=== PATIENT | male | born 1940 | race Caucasian/White ===

== ENCOUNTER 2017-12-16 06:28 | Day surgery (SDC) | payer MEDICARE ==
[~2017-12-16] VITALS: Ht 188 cm; Wt 106.4 kg
[~2017-12-16 06:28] MED LIST: BENA20 PO; FERR325T PO; FURO10S PO; GABA600T PO; IPRA17I INH; LEVO125T3 PO; METO50TA PO; PACE100T2 PO; PAXI20TA PO; POTA75TA2 PO; PRAV40TA2 PO; PRIL40CA PO; TERA5CAP3 PO; WARF-20 PO
[2017-12-16] MEDS ORDERED: AMIO0.1T PO (06:44)
[2017-12-16] MEDS ORDERED: ATOR40TA16 PO (06:45)
[2017-12-16] MEDS ORDERED: APIX5TAB PO (06:46)
[2017-12-16] MEDS ORDERED: GABA300C5 PO (06:48)
[2017-12-16] MEDS ORDERED: FINA5TAB2 PO (06:48)
[2017-12-16] MEDS ORDERED: FURO1TAB60 PO (06:49)
[2017-12-16] MEDS ORDERED: LEVO100T5 PO (06:49)
[2017-12-16] MEDS ORDERED: LOSA50TA PO (06:50)
[2017-12-16] MEDS ORDERED: OMEP40CA2 PO (06:51)
[2017-12-16] MEDS ORDERED: PARO20TA2 PO (06:52)
[2017-12-16] MEDS ORDERED: POTA-163 PO (06:52)
[2017-12-16 06:56] VITALS: BP 149/83; PULSE 70; RESP 18; TEMP 97.9; O2SAT 93
[2017-12-16] MEDS ORDERED: SODIUM CHLOR 0.9% 1000 ML INJ 1,000 ML IV SCH (07:15)
[2017-12-16] MEDS ORDERED: LIDOCAINE 1%/EPINEPHrine 1:100,000 SOLN 20 ML VIAL ONE (07:27)
[2017-12-16 07:30] LABS: AUTOMATED NEUTROPHIL # 9.9 TH/MM3 (1.8-7.7); BASOPHIL # 0.1 TH/MM3 (0-0.2); EOSINOPHIL # 0.8 TH/MM3 (0-0.4); EOSINOPHIL % 5.8 % (0.0-4.0); HEMOGLOBIN 14.9 GM/DL (13.0-17.0); LYMPH % 7.6 % (9.0-44.0); MEAN CELL VOLUME 87.3 FL (80.0-100.0); MEAN CORPUSCULAR HEMOGLOBIN 30.9 PG (27.0-34.0); MEAN CORPUSCULAR HGB CONC 35.4 % (32.0-36.0); MEAN PLATELET VOLUME 7.6 FL (7.0-11.0); MONO % 10.3 % (0.0-8.0); MONOCYTE # 1.4 TH/MM3 (0-0.9); NEUT % 75.3 % (16.0-70.0); PLATELET COUNT 364 TH/MM3 (150-450); RED BLOOD COUNT 4.81 MIL/MM3 (4.50-5.90); RED CELL DISTRIBUTION WIDTH 13.5 % (11.6-17.2); WHITE BLOOD COUNT 13.1 TH/MM3 (4.0-11.0)
[2017-12-16] MEDS ORDERED: MIDAZOLAM HCL 2 MG/2 ML VIAL ONE (08:08)
[2017-12-16 08:15] LABS: INTERNATIONAL NORMALIZED RATIO 1.2 RATIO; PROTHROMBIN TIME - PATIENT 11.8 SEC (9.8-11.6)
[2017-12-16 09:23] VITALS: BP 142/74; PULSE 100; RESP 19; TEMP 97.9; O2SAT 96
[2017-12-16 09:53] VITALS: BP 136/69; PULSE 89; RESP 17; O2SAT 93
[2017-12-16 10:23] VITALS: BP 146/70; PULSE 104; RESP 18; O2SAT 95
[2017-12-16 10:53] VITALS: BP 130/76; PULSE 88; RESP 19; O2SAT 92
--- NOTE | 2017-12-16 11:06 | RADRPT ---
EXAM DATE: 12/16/2017 9:42 AM EDT AGE/SEX: 77 years / Male INDICATIONS: Left adrenal mass. CLINICAL DATA: This is the patient's initial encounter. Patient reports that signs and symptoms have been present for 1 day and indicates a pain score of 0/10. MEDICAL/SURGICAL HISTORY: Carcinoma, colon. Hypertension. Congestive heart failure. Cholecyst ectomy. COMPARISON: No prior exams available for comparison. BIOPSY SITE: Left adrenal DEVICE(S): 18 gauge BARD biopsy needle PROCEDURE: CT guided Left adrenal biopsy Prior to the procedure informed consent was obtained. Any appropriate prior imaging studies were rev iewed. Using automated exposure control and adjustment of the mA and/or kV according to patient size, radiat ion dose was kept as low as reasonably achievable to obtain optimal diagnostic quality images. DICOM format image data is available electronically for review and comparison. The site was prepped in a sterile fashion. Full sterile technique was used, including cap, mask, angélica rile gloves and gown and a large sterile sheet. Hand hygiene and 2% chlorhexidine and/or betadine/al cohol prep was utilized per protocol for cutaneous antisepsis. The skin and subcutaneous tissues wer e infiltrated with local anesthetic solution. With CT guidance the previously identified target was localized. Biopsy was performed using the presc ribed needle as above. Adequate hemostasis was obtained with compression at the puncture site. Follow-up CT scan reveals minimal hemorrhage. The patient tolerated the procedure well and there were no complications. The patient was returned to the Radiology Outpatient Unit in stable condition. FINDINGS: Successful CT-guided 18-gauge core biopsy of left adrenal mass was performed. CONCLUSION: 1. Successful CT-guided 18-gauge core biopsy of left adrenal mass. Electronically signed by: Harshad Springer MD 12/16/2017 11:04 AM EDT
== END 2017-12-16 11:30 | disposition home or self-care (01) ==
LOC: HRAD 06:28 → HRIP 06:29 → HRAD 11:30
PROVIDERS: ATTEND Internal Medicine Hematology
DX: C74.92 Malignant neoplasm of unspecified part of left adrenal gland (principal); C18.9 Malignant neoplasm of colon, unspecified; I11.0 Hypertensive heart disease with heart failure; I50.9 Heart failure, unspecified
CPT/HCPCS: 60699; 77012; 85025; 85610; 85730; 88305; 88341; 88342; 99152; 99153; J2250; J3010; J7030

== ENCOUNTER 2017-12-31 12:55 | Inpatient (IN) | payer MEDICARE ==
[~2017-12-31] VITALS: Ht 177.8 cm; Wt 97.5 kg
[~2017-12-31 12:55] MED LIST changes: +AMIO0.1T PO; +APIX5TAB PO; +ATOR40TA16 PO; -BENA20 PO; -FERR325T PO; +FINA5TAB2 PO; -FURO10S PO; +FURO1TAB60 PO; +GABA300C5 PO; -GABA600T PO; -IPRA17I INH; +LEVO100T5 PO; -LEVO125T3 PO; +LOSA50TA PO; -METO50TA PO; +OMEP40CA2 PO; -PACE100T2 PO; +PARO20TA2 PO; -PAXI20TA PO; +POTA-163 PO; -POTA75TA2 PO; -PRAV40TA2 PO; -PRIL40CA PO; -TERA5CAP3 PO; -WARF-20 PO
[2017-12-31] MEDS ORDERED: IOHEXOL 350 MG/ML 10 ML VIAL (for RAD DIAG) IVCONTRAST ONE (12:56)
[2017-12-31 13:10] VITALS: BP 129/90; PULSE 106; RESP 18; RESP 20; TEMP 98.7; O2SAT 97
--- NOTE | 2017-12-31 13:53 | PD ---
HPI Chief Complaint: Respiratory Symptoms Time Seen by Provider: 13:52 Travel History International Travel<30 days: No Contact w/Intl Traveler<30days: No Traveled to known affect area: No PFSH Past Medical History Hx Anticoagulant Therapy: Yes Anemia: Yes Arthritis: Yes Atrial Fibrillation: Yes Cancer: Yes (melanoma) Cardiovascular Problems: Yes High Cholesterol: Yes Chest Pain: No Congestive Heart Failure: Yes COPD: Yes Cerebrovascular Accident: No Coronary Artery Disease: Yes Diabetes: No Deep Vein Thrombosis: No Gastrointestinal Disorders: No GERD: Yes Genitourinary: No Hiatal Hernia: No Hypertension: Yes Neurologic: No Psychiatric: No Reproductive: No Respiratory: Yes Myocardial Infarction: No Renal Failure: Yes Thyroid Disease: Yes Triglycerides - High: Yes Past Surgical History Abdominal Surgery: Yes (UMBILICAL HERNIA REPAIR ,gall bladder ) Cholecystectomy: Yes Pacemaker: No Tonsillectomy: Yes Social History Alcohol Use: Yes (FORMER ALCOHOL USE ) Tobacco Use: No Substance Use: No Allergies-Medications (Allergen,Severity, Reaction): Coded Allergies: No Known Allergies (Unverified , 07/05/15) Reported Meds & Prescriptions Reported Meds & Active Scripts Active Reported Potassium Chloride ER (Potassium Chloride) 20 Meq Tab 20 Meq PO DAILY Paroxetine (Paroxetine HCl) 20 Mg Tab 20 Mg PO DAILY Omeprazole 40 Mg Cap 40 Mg PO DAILY Losartan (Losartan Potassium) 50 Mg Tab 50 Mg PO DAILY Levothyroxine (Levothyroxine Sodium) 100 Mcg Tab 100 Mcg PO DAILY Lasix (Furosemide) 40 Mg Tab 40 Mg PO DAILY Gabapentin 300 Mg Cap 300 Mg PO BID Finasteride 5 Mg Tab 5 Mg PO DAILY Do not crush. Eliquis (Apixaban) 5 Mg Tab 5 Mg PO BID Atorvastatin (Atorvastatin Calcium) 40 Mg Tab 40 Mg PO HS Amiodarone (Amiodarone HCl) 100 Mg Tab 100 Mg PO DAILY Data Data Last Documented VS Vital Signs Date Time Temp Pulse Resp B/P (MAP) Pulse Ox O2 Delivery O2 Flow Rate FiO2 12/31/17 13:10 106 20 129/90 (103) 97 12/31/17 13:10 98.7 Room Air Seema Sharma MD Dec 31, 2017 13:53
[2017-12-31] MEDS ORDERED: DEXA4TAB PO (14:22)
[2017-12-31] MEDS ORDERED: METO2.5T PO (14:22)
[2017-12-31 14:27] VITALS: BP 130/88; PULSE 89; RESP 17; O2SAT 94
[2017-12-31 14:28] VITALS: O2SAT 98
[2017-12-31] MEDS ORDERED: SODIUM CHLORIDE 0.9% FLUSH 10 ML FLUSH IVF PRN (14:30)
--- NOTE | 2017-12-31 14:35 | PD ---
HPI Chief Complaint: Respiratory Symptoms Time Seen by Provider: 14:03 Travel History International Travel<30 days: No Contact w/Intl Traveler<30days: No Traveled to known affect area: No History of Present Illness HPI 77-year-old male presents to the emergency department for evaluation of shortness of breath. Patient was sent by his radiation oncologist, Dr. Butler. Patient was recently diagnosed with cancer from probable lung as the primary with metastases to the brain, liver, bilateral adrenal glands. Patient has not yet started radiation therapy or chemotherapy. The patient states that he has been having shortness of breath over the past couple weeks, but has worsened over the past 3 days, worse with exertion. He also reports right- sided abdominal pain that is been ongoing for several weeks. Patient denies any headache. No fevers or chills. He denies any chest pain. He denies any nausea, vomiting, diarrhea. He reports bilateral lower extremity edema over the past couple weeks. He does have history of CHF, COPD, hyperlipidemia, hypertension, A. fib. He is on Eliquis. Moderate severity. PFSH Past Medical History Hx Anticoagulant Therapy: Yes Anemia: Yes Arthritis: Yes Atrial Fibrillation: Yes Cancer: Yes (melanoma; brain and possible lung) Cardiovascular Problems: Yes High Cholesterol: Yes Chest Pain: No Congestive Heart Failure: Yes COPD: Yes Cerebrovascular Accident: No Coronary Artery Disease: Yes Diabetes: No Diminished Hearing: Yes (hearing aides) Deep Vein Thrombosis: No Gastrointestinal Disorders: No GERD: Yes Genitourinary: No Hiatal Hernia: No Hypertension: Yes Neurologic: Yes (neuropathy) Psychiatric: No Reproductive: No Respiratory: Yes Myocardial Infarction: No Renal Failure: Yes Thyroid Disease: Yes Triglycerides - High: Yes Influenza Vaccination: Yes Past Surgical History Abdominal Surgery: Yes (UMBILICAL HERNIA REPAIR ,gall bladder ) Cholecystectomy: Yes Pacemaker: No Tonsillectomy: Yes Other Surgery: Yes Social History Alcohol Use: No (FORMER ALCOHOL USE ) Tobacco Use: No Substance Use: No Allergies-Medications (Allergen,Severity, Reaction): Coded Allergies: No Known Allergies (Unverified , 07/05/15) Reported Meds & Prescriptions Reported Meds & Active Scripts Active Reported Metolazone 2.5 Mg Tab 2.5 Mg PO 3XWEEK Dexamethasone 4 Mg Tab 4 Mg PO BID Potassium Chloride ER (Potassium Chloride) 20 Meq Tab 20 Meq PO DAILY Paroxetine (Paroxetine HCl) 20 Mg Tab 20 Mg PO DAILY Omeprazole 40 Mg Cap 40 Mg PO DAILY Losartan (Losartan Potassium) 50 Mg Tab 50 Mg PO DAILY Levothyroxine (Levothyroxine Sodium) 100 Mcg Tab 100 Mcg PO DAILY Lasix (Furosemide) 40 Mg Tab 40 Mg PO DAILY Gabapentin 300 Mg Cap 300 Mg PO BID Finasteride 5 Mg Tab 5 Mg PO DAILY Do not crush. Eliquis (Apixaban) 5 Mg Tab 5 Mg PO BID Atorvastatin (Atorvastatin Calcium) 40 Mg Tab 40 Mg PO HS Amiodarone (Amiodarone HCl) 100 Mg Tab 100 Mg PO DAILY Review of Systems Except as stated in HPI: all other systems reviewed are Neg Physical Exam Narrative GENERAL: Well-nourished, well-developed male patient, afebrile. SKIN: Focused skin assessment warm/dry. HEAD: Normocephalic. Atraumatic. EYES: No scleral icterus. No injection or drainage. NECK: Supple, trachea midline. No JVD or lymphadenopathy. CARDIOVASCULAR: Regular rate and rhythm without murmurs, gallops, or rubs. RESPIRATORY: Breath sounds equal bilaterally. No accessory muscle use. GASTROINTESTINAL: Abdomen soft and nondistended. He reports tenderness over the right upper quadrant to palpation. MUSCULOSKELETAL: No cyanosis, or edema. BACK: Nontender without obvious deformity. No CVA tenderness. Data Data Last Documented VS Vital Signs Date Time Temp Pulse Resp B/P (MAP) Pulse Ox O2 Delivery O2 Flow Rate FiO2 12/31/17 14:28 98 Nasal Cannula 2.00 12/31/17 14:27 89 17 12/31/17 13:10 98.7 Orders Orders Complete Blood Count With Diff (12/31/17 14:22) Comprehensive Metabolic Panel (12/31/17 14:22) B-Type Natriuretic Peptide (12/31/17 14:22) Act Partial Throm Time (Ptt) (12/31/17 14:22) Prothrombin Time / Inr (Pt) (12/31/17 14:22) Magnesium (Mg) (12/31/17 14:22) Ckmb (Isoenzyme) Profile (12/31/17 14:22) Troponin I (12/31/17 14:22) Urinalysis - C+S If Indicated (12/31/17 14:22) Iv Access Insert/Monitor (12/31/17 14:22) Electrocardiogram (12/31/17 14:22) Ecg Monitoring (12/31/17 14:22) Oximetry (12/31/17 14:22) Oxygen Administration (12/31/17 14:22) Chest, Single Ap (12/31/17 14:22) Sodium Chloride 0.9% Flush (Ns Flush) (12/31/17 14:30) Lipase (12/31/17 14:22) Ct Abd/Pel W Iv Contrast(Rout) (12/31/17 ) Ct Pulmonary Angiogram (12/31/17 ) Iohexol 350 Inj (Omnipaque 350 Inj) (12/31/17 12:56) Lactic Acid Sepsis Protocol (12/31/17 17:51) Blood Culture (12/31/17 17:51) Azithromycin Inj (Zithromax Inj) (12/31/17 18:00) Ceftriaxone Inj (Rocephin Inj) (12/31/17 18:00) Potassium Chloride (Kcl) (12/31/17 18:00) Admit Order (Ed Use Only) (12/31/17 18:31) Labs Laboratory Tests Test 12/31/17 14:30 12/31/17 17:21 White Blood Count 20.8 TH/MM3 Red Blood Count 5.64 MIL/MM3 Hemoglobin 16.8 GM/DL Hematocrit 50.3 % Mean Corpuscular Volume 89.2 FL Mean Corpuscular Hemoglobin 29.9 PG Mean Corpuscular Hemoglobin Concent 33.5 % Red Cell Distribution Width 14.1 % Platelet Count 214 TH/MM3 Mean Platelet Volume 8.7 FL Neutrophils (%) (Auto) 93.3 % Lymphocytes (%) (Auto) 1.5 % Monocytes (%) (Auto) 4.5 % Eosinophils (%) (Auto) 0.3 % Basophils (%) (Auto) 0.4 % Neutrophils # (Auto) 19.5 TH/MM3 Lymphocytes # (Auto) 0.3 TH/MM3 Monocytes # (Auto) 0.9 TH/MM3 Eosinophils # (Auto) 0.1 TH/MM3 Basophils # (Auto) 0.1 TH/MM3 CBC Comment DIFF FINAL Differential Comment Prothrombin Time 11.9 SEC Prothromb Time International Ratio 1.2 RATIO Activated Partial Thromboplast Time 21.4 SEC Blood Urea Nitrogen 28 MG/DL Creatinine 0.84 MG/DL Random Glucose 140 MG/DL Total Protein 7.3 GM/DL Albumin 3.5 GM/DL Calcium Level 9.0 MG/DL Magnesium Level 1.9 MG/DL Alkaline Phosphatase 95 U/L Aspartate Amino Transf (AST/SGOT) 15 U/L Alanine Aminotransferase (ALT/SGPT) 28 U/L Total Bilirubin 1.0 MG/DL Sodium Level 135 MEQ/L Potassium Level 3.0 MEQ/L Chloride Level 94 MEQ/L Carbon Dioxide Level 29.2 MEQ/L Anion Gap 12 MEQ/L Estimat Glomerular Filtration Rate 89 ML/MIN Total Creatine Kinase 40 U/L Troponin I 0.02 NG/ML Lipase 91 U/L Urine Color YELLOW Urine Turbidity CLEAR Urine pH 7.0 Urine Specific [place] 1.021 Urine Protein NEG mg/dL Urine Glucose (UA) NEG mg/dL Urine Ketones NEG mg/dL Urine Occult Blood NEG Urine Nitrite NEG Urine Bilirubin NEG Urine Urobilinogen 4.0 OR GREATER mg/dL Urine Leukocyte Esterase NEG Urine RBC LESS THAN 1 /hpf Urine WBC LESS THAN 1 /hpf Urine Hyaline Casts 9 /lpf Microscopic Urinalysis Comment CULT NOT INDICATED MDM Medical Decision Making Medical Screen Exam Complete: Yes Emergency Medical Condition: Yes Medical Record Reviewed: Yes Interpretation(s) Last Impressions Chest X-Ray 12/31/17 1422 Signed Impressions: CONCLUSION: Interstitial and alveolar opacity right lung, probably inflammatory. CT Angiography 12/31/17 0000 Signed Impressions: CONCLUSION: 1. No evidence of pulmonary embolism. 2. Extensive parenchymal disease in the right lung. 3. Right hilar and adjacent mediastinal adenopathy. 4. Bilateral diffuse adrenal gland enlargement and upper abdominal adenopathy. Abdomen/Pelvis CT 12/31/17 0000 Signed Impressions: CONCLUSION: 1. Findings suspicious for neoplasm mid ascending colon with adenopathy presen t. 2. There is no evidence for metastatic disease to the liver 3. Biliary air is present from apparent previous sphincterotomy. 4. 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 5. Bilateral adrenal masses. Differential Diagnosis CHF exacerbation versus COPD exacerbation versus pneumonia versus lung mass versus PE versus chronic abdominal pain versus pancreatitis Narrative Course 77-year-old male presents to the emergency department for evaluation shortness of breath and abdominal pain. He is recently diagnosed with metastatic lung cancer. EKG, CBC, CMP, BNP, magnesium, CK, troponin, lipase, PTT, PT/INR, UA are ordered and pending. Chest x-ray, CT abdomen/pelvis with IV contrast, CT pulmonary angiogram are ordered and pending. EKG shows atrial flutter/tachycardia, heart rate 94. CBC shows leukocytosis 20.8, neutrophil percentage is 93.3. CMP shows hypokalemia 3.0, BUN 28, glucose 140. BNP is still pending. Magnesium is 1.9. CK is 40. Troponin is 0.02. Lipase is 91. Coags show no acute abnormality. UA is negative for acute infection. Chest x-ray shows interstitial and alveolar opacity right lung , probably inflammatory. CT abdomen/pelvis shows findings suspicious for neoplasm mid ascending colon with adenopathy present, no evidence for metastatic disease to the liver, biliary air is present from apparent previous speed enterectomy, horseshoe kidney with functioning renal tissue midline, bilateral adrenal masses. CT pulmonary angiogram shows no evidence of pulmonary embolism, extensive parenchymal disease in the right lung, right hilar and adjacent mediastinal adenopathy, bilateral diffuse adrenal gland enlargement upper abdominal adenopathy. Lactic acid and blood cultures 2 were ordered and pending. Patient is not given IV fluid per sepsis protocol due to history of CHF and leg edema. Patient is given azithromycin 500 mg IV, Rocephin [address] Jiang, [facility], accepted admission. Sepsis Criteria SIRS Criteria (2 or more): Heart rate over 90, WBC > 53340, < 4000 or > 10% bands Sepsis Criteria (SIRS+source): Infect source susp/known Diagnosis Primary Impression: Pneumonia Qualified Codes: J18.9 - Pneumonia, unspecified organism Additional Impressions: Sepsis Qualified Codes: A41.9 - Sepsis, unspecified organism Metastatic cancer Admitting Information Admitting Physician Requests: Admit Alicia Rich Dec 31, 2017 14:35
--- NOTE | 2017-12-31 14:49 | RADRPT ---
EXAM DATE: 12/31/2017 2:45 PM EDT AGE/SEX: 77 years / Male INDICATIONS: Shortness of breath. CLINICAL DATA: This is the patient's initial encounter. Patient reports that signs and symptoms have been present for 3 weeks and indicates a pain score of 0/10. MEDICAL/SURGICAL HISTORY: Congestive heart failure. Hypertension. Carcinoma, lung. AFIB. No ne. COMPARISON: [facility] [place], CHEST SINGLE AP, 09/30/2014. . FINDINGS: Interstitial and alveolar opacity right lung suspicious for inflammatory process. Left lung is clear process Hemorrhage could give a a similar appearance Moderate left ventricular hypertrophy. No failur e. No pneumothorax. No pleural effusion. CONCLUSION: Interstitial and alveolar opacity right lung, probably inflammatory. Electronically signed by: Davie Barragan MD 12/31/2017 2:48 PM EDT
[2017-12-31 15:22] LABS: AUTOMATED NEUTROPHIL # 19.5 TH/MM3 (1.8-7.7); BASOPHIL # 0.1 TH/MM3 (0-0.2); BASOPHIL % 0.4 % (0.0-2.0); EOSINOPHIL # 0.1 TH/MM3 (0-0.4); EOSINOPHIL % 0.3 % (0.0-4.0); HEMATOCRIT 50.3 % (39.0-51.0); HEMOGLOBIN 16.8 GM/DL (13.0-17.0); LYMPH % 1.5 % (9.0-44.0); LYMPHOCYTE # 0.3 TH/MM3 (1.0-4.8); MEAN CELL VOLUME 89.2 FL (80.0-100.0); MEAN CORPUSCULAR HEMOGLOBIN 29.9 PG (27.0-34.0); MEAN CORPUSCULAR HGB CONC 33.5 % (32.0-36.0); MEAN PLATELET VOLUME 8.7 FL (7.0-11.0); MONO % 4.5 % (0.0-8.0); MONOCYTE # 0.9 TH/MM3 (0-0.9); NEUT % 93.3 % (16.0-70.0); PLATELET COUNT 214 TH/MM3 (150-450); RED BLOOD COUNT 5.64 MIL/MM3 (4.50-5.90); RED CELL DISTRIBUTION WIDTH 14.1 % (11.6-17.2); WHITE BLOOD COUNT 20.8 TH/MM3 (4.0-11.0)
[2017-12-31 15:29] LABS: INTERNATIONAL NORMALIZED RATIO 1.2 RATIO; PROTHROMBIN TIME - PATIENT 11.9 SEC (9.8-11.6)
[2017-12-31 15:34] LABS: ALBUMIN 3.5 GM/DL (3.4-5.0); ALT (GPT) 28 U/L (12-78); AST (GOT) 15 U/L (15-37); BICARBONATE 29.2 MEQ/L (21.0-32.0); BLOOD UREA NITROGEN 28 MG/DL (7-18); CHLORIDE 94 MEQ/L (98-107); CREATININE 0.84 MG/DL (0.60-1.30); GLOMERULAR FILTRATION RATE 89 ML/MIN (>89); GLUCOSE,RANDOM 140 MG/DL (74-106); MAGNESIUM 1.9 MG/DL (1.5-2.5); SODIUM (NA) 135 MEQ/L (136-145)
[2017-12-31 15:39] LABS: ALKALINE PHOSPHATASE 95 U/L (45-117); TOTAL PROTEIN 7.3 GM/DL (6.4-8.2); TROPONIN I 0.02 NG/ML (0.02-0.05)
--- NOTE | 2017-12-31 16:57 | PD ---
Physical Exam Narrative I, Dr. Santamaria, have reviewed the advance practice practitioner's documentation and am in agreement, met with the patient face to face, made the diagnosis, and the medical decision making was done by me. *My assessment and Findings: Malignancy burden vs. PE vs. pneumonia vs. pleural effusion 77yo M with recently diagnosed lung CA here with c/o sob. CXR showed interstitial and alveolar opacity right lung, probably inflammatory. Labs reviewed, leukocytosis at 20,800. Mild hypokalemia at 3.0. BUN elevated at 28. Troponin negative. Lipase normal. CT a/p showed findings suspicious for neoplasm and ascending colon with adenopathy present. There is no evidence for metastatic disease to the liver. Pt with mild right upper abdomen tenderness. CT angio showed no PE. Extensive parenchymal disease in right lung. Pt said he has increased cough and sob so given ceftriaxone and azithromycin. Will admit for sepsis secondary to pneumonia. Data Data Last Documented VS Vital Signs Date Time Temp Pulse Resp B/P (MAP) Pulse Ox O2 Delivery O2 Flow Rate FiO2 12/31/17 14:28 98 Nasal Cannula 2.00 12/31/17 14:27 89 17 12/31/17 13:10 98.7 Orders Orders Complete Blood Count With Diff (12/31/17 14:22) Comprehensive Metabolic Panel (12/31/17 14:22) B-Type Natriuretic Peptide (12/31/17 14:22) Act Partial Throm Time (Ptt) (12/31/17 14:22) Prothrombin Time / Inr (Pt) (12/31/17 14:22) Magnesium (Mg) (12/31/17 14:22) Ckmb (Isoenzyme) Profile (12/31/17 14:22) Troponin I (12/31/17 14:22) Urinalysis - C+S If Indicated (12/31/17 14:22) Iv Access Insert/Monitor (12/31/17 14:22) Electrocardiogram (12/31/17 14:22) Ecg Monitoring (12/31/17 14:22) Oximetry (12/31/17 14:22) Oxygen Administration (12/31/17 14:22) Chest, Single Ap (12/31/17 14:22) Sodium Chloride 0.9% Flush (Ns Flush) (12/31/17 14:30) Lipase (12/31/17 14:22) Ct Abd/Pel W Iv Contrast(Rout) (12/31/17 ) Ct Pulmonary Angiogram (12/31/17 ) Iohexol 350 Inj (Omnipaque 350 Inj) (12/31/17 12:56) Lactic Acid Sepsis Protocol (12/31/17 17:51) Blood Culture (12/31/17 17:51) Azithromycin Inj (Zithromax Inj) (12/31/17 18:00) Ceftriaxone Inj (Rocephin Inj) (12/31/17 18:00) Potassium Chloride (Kcl) (12/31/17 18:00) Labs Laboratory Tests Test 12/31/17 14:30 12/31/17 17:21 White Blood Count 20.8 TH/MM3 Red Blood Count 5.64 MIL/MM3 Hemoglobin 16.8 GM/DL Hematocrit 50.3 % Mean Corpuscular Volume 89.2 FL Mean Corpuscular Hemoglobin 29.9 PG Mean Corpuscular Hemoglobin Concent 33.5 % Red Cell Distribution Width 14.1 % Platelet Count 214 TH/MM3 Mean Platelet Volume 8.7 FL Neutrophils (%) (Auto) 93.3 % Lymphocytes (%) (Auto) 1.5 % Monocytes (%) (Auto) 4.5 % Eosinophils (%) (Auto) 0.3 % Basophils (%) (Auto) 0.4 % Neutrophils # (Auto) 19.5 TH/MM3 Lymphocytes # (Auto) 0.3 TH/MM3 Monocytes # (Auto) 0.9 TH/MM3 Eosinophils # (Auto) 0.1 TH/MM3 Basophils # (Auto) 0.1 TH/MM3 CBC Comment DIFF FINAL Differential Comment Prothrombin Time 11.9 SEC Prothromb Time International Ratio 1.2 RATIO Activated Partial Thromboplast Time 21.4 SEC Blood Urea Nitrogen 28 MG/DL Creatinine 0.84 MG/DL Random Glucose 140 MG/DL Total Protein 7.3 GM/DL Albumin 3.5 GM/DL Calcium Level 9.0 MG/DL Magnesium Level 1.9 MG/DL Alkaline Phosphatase 95 U/L Aspartate Amino Transf (AST/SGOT) 15 U/L Alanine Aminotransferase (ALT/SGPT) 28 U/L Total Bilirubin 1.0 MG/DL Sodium Level 135 MEQ/L Potassium Level 3.0 MEQ/L Chloride Level 94 MEQ/L Carbon Dioxide Level 29.2 MEQ/L Anion Gap 12 MEQ/L Estimat Glomerular Filtration Rate 89 ML/MIN Total Creatine Kinase 40 U/L Troponin I 0.02 NG/ML Lipase 91 U/L Urine Color YELLOW Urine Turbidity CLEAR Urine pH 7.0 Urine Specific [place] 1.021 Urine Protein NEG mg/dL Urine Glucose (UA) NEG mg/dL Urine Ketones NEG mg/dL Urine Occult Blood NEG Urine Nitrite NEG Urine Bilirubin NEG Urine Urobilinogen 4.0 OR GREATER mg/dL Urine Leukocyte Esterase NEG Urine RBC LESS THAN 1 /hpf Urine WBC LESS THAN 1 /hpf Urine Hyaline Casts 9 /lpf Microscopic Urinalysis Comment CULT NOT INDICATED MDM Supervised Visit with MYLENE: Yes Interpretation(s) EKG: Afib at 94bpm. PVC. No significant ST elevation or depression. Diagnosis Primary Impression: Pneumonia Qualified Codes: J18.9 - Pneumonia, unspecified organism Admitting Information Admitting Physician Requests: Susi Yepez DO Dec 31, 2017 16:57
--- NOTE | 2017-12-31 17:45 | RADRPT ---
EXAM DATE: 12/31/2017 5:27 PM EDT AGE/SEX: 77 years / Male INDICATIONS: SHORTNESS OF BREATH CLINICAL DATA: This is the patient's initial encounter. Patient reports that signs and symptoms have been present for 1 day and indicates a pain score of 6/10. MEDICAL/SURGICAL HISTORY: Crohn's disease. Hypertension. Carcinoma, lung. BRAIN CANCER ,MELANOMA Cholecystectomy. RADIATION DOSE: 16.36 CTDI (mGy) COMPARISON: No prior exams available for comparison. TECHNIQUE: Volumetric scanning was performed using a multi-row detector CT scanner during bolus infu odin of 71 ml Omnipaque 350 (iohexol) nonionic water-soluble contrast as a single exam dose. The ryanne a was post processed with a variety of visualization algorithms including full volume maximum intensi ty projection and sliding thin slab reformation. Using automated exposure control and adjustment of the mA and/or kV according to patient size, radiation dose was kept as low as reasonably achievable t o obtain optimal diagnostic quality images. DICOM format image data is available electronically for review and comparison. FINDINGS: Pulmonary Arteries: No filling defects are seen in the pulmonary arteries out to the subsegmental ve ssels. The left and right pulmonary arteries are normal in diameter. Lung: There is extensive airspace opacity in the right lung with diffuse reticular and groundglass o pacity and interspersed areas of nodular consolidative change. Effusion: None. Mediastinum: Prominent right hilar adenopathy and contiguous mediastinal adenopathy, mainly involvin g the right paratracheal region and subcarinal region. Other: Prominent diffuse enlargement of the adrenal glands bilaterally. Upper abdominal adenopathy i n the gastrohepatic ligament, celiac region and para-aortic regions CONCLUSION: 1. No evidence of pulmonary embolism. 2. Extensive parenchymal disease in the right lung. 3. Right hilar and adjacent mediastinal adenopathy. 4. Bilateral diffuse adrenal gland enlargement and upper abdominal adenopathy. Electronically signed by: Chris Malik MD 12/31/2017 5:43 PM EDT
--- NOTE | 2017-12-31 17:54 | RADRPT ---
EXAM DATE: 12/31/2017 5:23 PM EDT AGE/SEX: 77 years / Male INDICATIONS: RIGHT UPPER ABDOMEN PAIN CLINICAL DATA: This is the patient's initial encounter. Patient reports that signs and symptoms have been present for 1 day and indicates a pain score of 6/10. MEDICAL/SURGICAL HISTORY: Congestive heart failure. Hypertension. Carcinoma, lung. BRAIN CAN CER MELANOMA Cholecystectomy. ORAL CONTRAST: No oral contrast ingested. RADIATION DOSE: 17.95 CTDI (mGy) COMPARISON: No prior exams available for comparison. TECHNIQUE: Multiple contiguous axial images were obtained through the abdomen and pelvis following b olus infusion of 71 ml Omnipaque 350 (iohexol) nonionic water-soluble contrast as a single exam dos e. No oral contrast ingested. Using automated exposure control and adjustment of the mA and/or kV ac cording to patient size, the radiation dose was kept as low as reasonably achievable to obtain optima l diagnostic quality images. FINDINGS: Consolidative changes developing in the right lung. The left lung is clear. Moderate coronary calcifications present Air is seen in the biliary tree. There is no free air. The pancreas and spleen are unremarkable There are bilateral large adrenal masses. Mass on the right measures 4.6 cm. Mass left adrenal measures 5.5 cm. Horseshoe kidney present with functioning renal tissue midline. 4.3 cm renal cyst. There are moderate inflammatory changes around the mid ascending colon. This is concerning for a neop lastic process. There are multiple lymph nodes associated with this. This does not appear to be causi ng any obstruction. In the pelvis there are no inflammatory changes evident. There is bladder wall thickening on the left side of the bladder at 4:00 that could be an early bladder neoplasm. Solid stool is seen in the colo n. Possible sclerotic metastatic disease T10 vertebral body right side.. CONCLUSION: 1. Findings suspicious for neoplasm mid ascending colon with adenopathy present. 2. There is no evidence for metastatic disease to the liver 3. Biliary air is present from apparent previous sphincterotomy. 4. 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 5. Bilateral adrenal masses. Electronically signed by: Chris Malik MD 12/31/2017 5:53 PM EDT
[2017-12-31] MEDS ORDERED: cefTRIAXone INJ 1,000 MG in SODIUM CHLORIDE 0.9% INJ 100 ML IV ONE (18:00)
[2017-12-31] MEDS ORDERED: AZITHROMYCIN INJ 500 MG in SODIUM CHLOR 0.9% 250 ML INJ 250 ML IV ONE (18:00)
[2017-12-31] MEDS ORDERED: POTASSIUM CHLORIDE 20 MEQ CONTROLLED RELEASE TAB PO ONE (18:00)
[2017-12-31 18:17] LABS: BILIRUBIN, URINE NEG (NEG); BLOOD, URINE NEG (NEG); GLUCOSE,URINE NEG (NEG); HYALINE CAST, URINE 9 /lpf (RARE); KETONE, URINE NEG (NEG); NITRITE,URINE NEG (NEG); URINE COLOR YELLOW (YELLW/STRAW); URINE LEUKOCYTE ESTERASE NEG (NEG)
[2017-12-31] MEDS ORDERED: SODIUM CHLOR 0.9% 1000 ML INJ 1,000 ML IV SCH (18:34)
[2017-12-31] MEDS ORDERED: ONDANSETRON HCL 4 MG/2 ML VIAL IVP PRN (18:45)
[2017-12-31] MEDS ORDERED: ENOXAPARIN SODIUM 40 MG/0.4 ML SYRINGE SQ SCH (18:45)
[2017-12-31] MEDS ORDERED: MAGNESIUM HYDROXIDE SUSP 30 ML CUP PO PRN (18:45)
[2017-12-31] MEDS ORDERED: SODIUM CHLORIDE 0.9% FLUSH 10 ML FLUSH IV FLUSH PRN (18:45)
[2017-12-31] MEDS ORDERED: ACETAMINOPHEN/HYDROcodone 325 MG/5 MG TAB PO PRN (18:45)
[2017-12-31] MEDS ORDERED: NALOXONE HCL 0.4 MG/ML AMP IV PUSH PRN (18:45)
[2017-12-31] MEDS ORDERED: ACETAMINOPHEN/HYDROcodone 325 MG/10 MG TAB PO PRN (18:45)
[2017-12-31] MEDS ORDERED: MEGE40SU PO (19:14)
[2017-12-31] MEDS ORDERED: HYCOS PO (19:14)
[2017-12-31] MEDS ORDERED: DIAZ5TAB PO (19:14)
[2017-12-31] MEDS ORDERED: HYDR-3516 PO (19:14)
[2017-12-31] MEDS ORDERED: ZOFR4TAB PO (19:14)
[2017-12-31] MEDS ORDERED: LINA145C PO (19:14)
[2017-12-31 19:20] LABS: LACTIC ACID SEPSIS PROTOCOL 2.3 mmol/L (0.4-2.0)
--- NOTE | 2017-12-31 19:26 | HHI.HP ---
[facility] Service [facility] Primary Care Physician Pawel John MD Admission Diagnosis Pneumonia, sepsis, metastatic cancer Diagnoses: (1) Pneumonia Diagnosis: Principal (2) Metastatic cancer Diagnosis: Principal (3) Sepsis Diagnosis: Principal Travel History International Travel<30 Days: No Contact w/Intl Traveler <30 Da: No Traveled to Known Affected Are: No Sepsis Criteria SIRS Criteria (2 or more): Heart rate over 90, WBC > 70899, < 4000 or > 10% bands Sepsis Criteria (SIRS+source): Infect source susp/known History of Present Illness Mr. Eastman is a 77-year-old male. As an outpatient he has had worsening of breathing and has been sent into the ER today by his radiation oncologist. 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 He was planning on having radiation to the brain in the next few weeks. We discussed how lung cancer can be an increased risk for pneumonia. The patient understands this. Patient has tachycardia and leukocytosis in addition to pneumonia which qualifies him for sepsis. Lactic acid levels are pending. She does not describe any fever but he has had a mild cough. His primary symptom has been shortness of breath and tachycardia. No exacerbation of his COPD or CHF at this point. His A. fib is present but no evidence for RVR at this point. The patient describes back pain and some abdominal pain. No central chest pain. No other complaints. Review of Systems Constitutional: COMPLAINS OF: Fatigue, Change in appetite, DENIES: Fever, Chills, Night Sweats Eyes: DENIES: Blurred vision, Diplopia, Eye inflammation, Eye pain Ears, nose, mouth, throat: DENIES: Hearing loss, Vertigo, Nasal discharge Respiratory: COMPLAINS OF: Cough, Shortness of breath, DENIES: Wheezing Cardiovascular: DENIES: Chest pain, Palpitations, Syncope Gastrointestinal: COMPLAINS OF: Abdominal pain, DENIES: Black stools, Bloody stools Musculoskeletal: COMPLAINS OF: Back pain, DENIES: Joint pain, Muscle aches, Stiffness, Joint Swelling Integumentary: DENIES: Abnormal pigmentation, Nail changes, Pruritus, Rash Hematologic/lymphatic: DENIES: Bruising, Lymphadenopathy Immunologic/allergic: DENIES: Eczema, Urticaria Neurologic: DENIES: Abnormal gait, Headache, Paresthesias Psychiatric: DENIES: Anxiety, Confusion, Hallucinations Past Family Social History Past Medical History Atrial fibrillation Lung cancer Brain metastasis Anemia Osteoarthritis Cardiovascular disease Congestive heart failure COPD Hyperlipidemia Presbycusis Hypertension Gastroesophageal reflux disease Hypothyroidism Past Surgical History Umbilical hernia repair Cholecystectomy Tonsillectomy Reported Medications Reported Meds & Active Scripts Active Reported Metolazone 2.5 Mg Tab 2.5 Mg PO 3XWEEK Dexamethasone 4 Mg Tab 4 Mg PO BID Potassium Chloride ER (Potassium Chloride) 20 Meq Tab 20 Meq PO DAILY Paroxetine (Paroxetine HCl) 20 Mg Tab 20 Mg PO DAILY Omeprazole 40 Mg Cap 40 Mg PO DAILY Losartan (Losartan Potassium) 50 Mg Tab 50 Mg PO DAILY Levothyroxine (Levothyroxine Sodium) 100 Mcg Tab 100 Mcg PO DAILY Lasix (Furosemide) 40 Mg Tab 40 Mg PO DAILY Gabapentin 300 Mg Cap 300 Mg PO BID Finasteride 5 Mg Tab 5 Mg PO DAILY Do not crush. Eliquis (Apixaban) 5 Mg Tab 5 Mg PO BID Atorvastatin (Atorvastatin Calcium) 40 Mg Tab 40 Mg PO HS Amiodarone (Amiodarone HCl) 100 Mg Tab 100 Mg PO DAILY Allergies: Coded Allergies: No Known Allergies (Unverified , 07/05/15) Active Ordered Medications Administered Medications Medications (Trade) Dose Ordered Sig/Jessy Route PRN Reason Start Time Stop Time Status Last Admin Dose Admin Sodium Chloride (NS Flush) 2 ml UNSCH PRN IVF FLUSH AFTER USING IV ACCESS 12/31/17 14:30 12/31/17 18:38 Family History Coronary artery disease in patient's mother and father Social History Past history of smoking approximately 24 years patient quit about 30 years ago Occasional alcohol use in the past No illicit drug abuse Physical Exam Vital Signs Vital Signs Date Time Temp Pulse Resp B/P (MAP) Pulse Ox O2 Delivery O2 Flow Rate FiO2 12/31/17 14:28 98 Nasal Cannula 2.00 12/31/17 14:27 89 17 130/88 (102) 94 Room Air 12/31/17 13:10 106 20 129/90 (103) 97 12/31/17 13:10 98.7 106 18 129/90 (103) 97 Room Air Physical Exam GENERAL: NAD, A&Ox3 HEAD: Normocephalic. NECK: Supple, trachea midline. No lymphadenopathy. EYES: No scleral icterus. No injection or drainage. CARDIOVASCULAR: Irregularly irregular rhythm with mild tachycardia and without murmurs, gallops, or rubs. RESPIRATORY: Breath sounds equal bilaterally. No accessory muscle use. GASTROINTESTINAL: Abdomen soft, non-tender, nondistended. MUSCULOSKELETAL: No cyanosis, or edema. SKIN: Warm and dry. NEURO: No focal neurological deficitis. Laboratory Laboratory Tests Test 12/31/17 14:30 12/31/17 17:21 12/31/17 18:35 White Blood Count 20.8 Red Blood Count 5.64 Hemoglobin 16.8 Hematocrit 50.3 Mean Corpuscular Volume 89.2 Mean Corpuscular Hemoglobin 29.9 Mean Corpuscular Hemoglobin Concent 33.5 Red Cell Distribution Width 14.1 Platelet Count 214 Mean Platelet Volume 8.7 Neutrophils (%) (Auto) 93.3 Lymphocytes (%) (Auto) 1.5 Monocytes (%) (Auto) 4.5 Eosinophils (%) (Auto) 0.3 Basophils (%) (Auto) 0.4 Neutrophils # (Auto) 19.5 Lymphocytes # (Auto) 0.3 Monocytes # (Auto) 0.9 Eosinophils # (Auto) 0.1 Basophils # (Auto) 0.1 CBC Comment DIFF FINAL Differential Comment Prothrombin Time 11.9 Prothromb Time International Ratio 1.2 Activated Partial Thromboplast Time 21.4 Blood Urea Nitrogen 28 Creatinine 0.84 Random Glucose 140 Total Protein 7.3 Albumin 3.5 Calcium Level 9.0 Magnesium Level 1.9 Alkaline Phosphatase 95 Aspartate Amino Transf (AST/SGOT) 15 Alanine Aminotransferase (ALT/SGPT) 28 Total Bilirubin 1.0 Sodium Level 135 Potassium Level 3.0 Chloride Level 94 Carbon Dioxide Level 29.2 Anion Gap 12 Estimat Glomerular Filtration Rate 89 Total Creatine Kinase 40 Troponin I 0.02 Lipase 91 Urine Color YELLOW Urine Turbidity CLEAR Urine pH 7.0 Urine Specific Lena 1.021 Urine Protein NEG Urine Glucose (UA) NEG Urine Ketones NEG Urine Occult Blood NEG Urine Nitrite NEG Urine Bilirubin NEG Urine Urobilinogen 4.0 OR GREATER Urine Leukocyte Esterase NEG Urine RBC LESS THAN 1 Urine WBC LESS THAN 1 Urine Hyaline Casts 9 Microscopic Urinalysis Comment CULT NOT INDICATED Date/Time Source Procedure Growth Status 12/31/17 18:35 Blood Peripheral Aerobic Blood Culture Pending Received 12/31/17 18:35 Blood Peripheral Anaerobic Blood Culture Pending Received Result Diagram: 12/31/17 1430 12/31/17 1430 Imaging Last Impressions Chest X-Ray 12/31/17 1422 Signed Impressions: CONCLUSION: Interstitial and alveolar opacity right lung, probably inflammatory. CT Angiography 12/31/17 0000 Signed Impressions: CONCLUSION: 1. No evidence of pulmonary embolism. 2. Extensive parenchymal disease in the right lung. 3. Right hilar and adjacent mediastinal adenopathy. 4. Bilateral diffuse adrenal gland enlargement and upper abdominal adenopathy. Abdomen/Pelvis CT 12/31/17 0000 Signed Impressions: CONCLUSION: 1. Findings suspicious for neoplasm mid ascending colon with adenopathy presen t. 2. There is no evidence for metastatic disease to the liver 3. Biliary air is present from apparent previous sphincterotomy. 4. 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 5. Bilateral adrenal masses. Caprini VTE Risk Assessment Caprini VTE Risk Assessment: Mod/High Risk (score >= 2) Caprini Risk Assessment Model Point Value = 1 Point Value = 2 Point Value = 3 Point Value = 5 Age 41-60 Minor surgery BMI > 25 kg/m2 Swollen legs Varicose veins or History of unexplained or recurrent spontaneous Oral contraceptives or hormone replacement Sepsis (< 1 month) Serious lung disease, including pneumonia (< 1 month) Abnormal pulmonary function Acute myocardial infarction Congestive heart failure (< 1 month) History of inflammatory bowel disease Medical patient at bed rest Age 61-74 Arthroscopic surgery Major open surgery (> 45 min) Laparoscopic surgery (> 45 min) Malignancy Confined to bed (> 72 hours) Immobilizing plaster cast Central venous access Age >= 75 History of VTE Family history of VTE Factor V Leiden Prothrombin [id number] Lupus anticoagulant Anticardiolipin antibodies Elevated serum homocysteine Heparin-induced thrombocytopenia Other congenital or acquired thrombophilia Stroke (< 1 month) Elective arthroplasty Hip, pelvis, or leg fracture Acute spinal cord injury (< 1 month) Prophylaxis Regimen Total Risk Factor Score Risk Level Prophylaxis Regimen 0-1 Low Early ambulation 2 Moderate Order ONE of the following: *Sequential Compression Device (SCD) *Heparin 5000 units SQ BID 3-4 Higher Order ONE of the following medications: *Heparin 5000 units SQ TID *Enoxaparin/Lovenox 40 mg SQ daily (WT < 150 kg, CrCl > 30 mL/min) *Enoxaparin/Lovenox 30 mg SQ daily (WT < 150 kg, CrCl > 10-29 mL/min) *Enoxaparin/Lovenox 30 mg SQ BID (WT < 150 kg, CrCl > 30 mL/min) AND/OR *Sequential Compression Device (SCD) 5 or more Highest Order ONE of the following medications: *Heparin 5000 units SQ TID (Preferred with Epidurals) *Enoxaparin/Lovenox 40 mg SQ daily (WT < 150 kg, CrCl > 30 mL/min) *Enoxaparin/Lovenox 30 mg SQ daily (WT < 150 kg, CrCl > 10-29 mL/min) *Enoxaparin/Lovenox 30 mg SQ BID (WT < 150 kg, CrCl > 30 mL/min) AND *Sequential Compression Device (SCD) Assessment and Plan Problem List: (1) Pneumonia ICD Code: J18.9 - Pneumonia, unspecified organism Status: Acute (2) Metastatic cancer ICD Code: C79.9 - Secondary malignant neoplasm of unspecified site Status: Acute (3) Sepsis ICD Code: A41.9 - Sepsis, unspecified organism Status: Acute Assessment and Plan 77-year-old male with lung cancer admitted secondary to pneumonia with sepsis Sepsis Follow vital signs closely Monitor on planner for resolution of tachycardia Monitor for improvement of leukocytosis Community-acquired pneumonia Pneumonia with lung cancer Immunocompromise in presence of cancer Treat with Rocephin and azithromycin Probiotics Oxygen support as needed Monitor for improvement infectious signs including leukocytosis, tachycardia, and symptoms Atrial fibrillation Congestive heart failure Cardiovascular disease Patient reports no chest pain tonight no change to baseline treatments Follow on telemetry IV hydration overnight for sepsis postop day placed at approximately 8 hours Lung cancer Brain metastasis Continue monitoring and treatments as an outpatient with oncology and radiation oncology Anemia Follow CBC Hypertension Continue baseline treatment Follow blood pressures Adjust treatments as needed Hyperlipidemia Continue present treatment Follow as an outpatient COPD No exacerbations Follow for any signs of exacerbation Continue baseline treatments Hypothyroidism Continue baseline supplementation Follow as an outpatient Osteoarthritis Presbycusis Gastroesophageal reflux disease No exacerbations of these conditions Follow clinically DVT prophylaxis Janeth Physician Certification 2 Midnight Certification Type: Admission for Inpatient Services Order for Inpatient Services The services are ordered in accordance with Medicare regulations or non- Medicare payer requirements, as applicable. In the case of services not specified as inpatient-only, they are appropriately provided as inpatient services in accordance with the 2-midnight benchmark. Estimated LOS (days): 2 days is the estimated time the patient will need to remain in the hospital, assuming treatment plan goals are met and no additional complications. Post-Hospital Plan: Home Problem Qualifiers (1) Pneumonia: Qualified Codes: J18.9 - Pneumonia, unspecified organism (2) Sepsis: Qualified Codes: A41.9 - Sepsis, unspecified organism Ayaz Jiang MD Dec 31, 2017 19:26
[2017-12-31] MEDS ORDERED: NON-FORMULARY DRUG (Ondansetron (Zofran) 4 MG) PO PRN (19:30)
[2017-12-31] MEDS ORDERED: LINACLOTIDE 72 MCG PO SCH (19:30)
[2017-12-31] MEDS ORDERED: DIAZEPAM 5 MG TAB PO PRN (19:30)
[2017-12-31] MEDS ORDERED: ONDANSETRON ODT 4 MG TAB PO PRN (20:00)
[2017-12-31 20:31] VITALS: BP 117/66; PULSE 86; RESP 16; TEMP 98.7; O2SAT 98
[2017-12-31] MEDS ORDERED: APIXABAN 5 MG TABLET PO SCH (21:00)
[2017-12-31] MEDS ORDERED: SODIUM CHLORIDE 0.9% FLUSH 10 ML FLUSH IV FLUSH SCH (21:00)
[2017-12-31] MEDS ORDERED: DEXAMETHASONE 4 MG TAB PO SCH (21:00)
[2017-12-31] MEDS ORDERED: GABAPENTIN 300 MG CAP PO SCH (21:00)
[2017-12-31] MEDS ORDERED: ATORVASTATIN 40 MG TAB PO SCH (21:00)
[2017-12-31] MEDS ORDERED: AMIODARONE 200 MG TAB PO SCH (21:00)
[2017-12-31 23:39] VITALS: BP 120/71; PULSE 83; RESP 17; TEMP 98.4; O2SAT 97
[2017-12-31] MEDS: HYDROcodone 5 MG/HOMATROPINE 1.5 MG SYRUP 5 ML CUP PO PRN (23:41)
[2018-01-01 03:31] VITALS: BP 116/75; PULSE 91; RESP 17; TEMP 98.5; O2SAT 95
[2018-01-01] MEDS ORDERED: LEVOTHYROXINE SODIUM 100 MCG TAB PO SCH (06:00)
[2018-01-01] MEDS: HYDROcodone 5 MG/HOMATROPINE 1.5 MG SYRUP 5 ML CUP PO PRN (06:02)
[2018-01-01 07:08] LABS: AUTOMATED NEUTROPHIL # 18.8 TH/MM3 (1.8-7.7); BASOPHIL # 0.1 TH/MM3 (0-0.2); BASOPHIL % 0.3 % (0.0-2.0); EOSINOPHIL # 0.1 TH/MM3 (0-0.4); EOSINOPHIL % 0.6 % (0.0-4.0); HEMATOCRIT 43.5 % (39.0-51.0); HEMOGLOBIN 14.8 GM/DL (13.0-17.0); LYMPH % 1.8 % (9.0-44.0); LYMPHOCYTE # 0.4 TH/MM3 (1.0-4.8); MEAN CELL VOLUME 89.5 FL (80.0-100.0); MEAN CORPUSCULAR HEMOGLOBIN 30.5 PG (27.0-34.0); MEAN CORPUSCULAR HGB CONC 34.1 % (32.0-36.0); MEAN PLATELET VOLUME 8.2 FL (7.0-11.0); MONO % 4.1 % (0.0-8.0); MONOCYTE # 0.8 TH/MM3 (0-0.9); NEUT % 93.2 % (16.0-70.0); PLATELET COUNT 172 TH/MM3 (150-450); RED BLOOD COUNT 4.86 MIL/MM3 (4.50-5.90); RED CELL DISTRIBUTION WIDTH 13.9 % (11.6-17.2); WHITE BLOOD COUNT 20.1 TH/MM3 (4.0-11.0)
[2018-01-01 07:42] VITALS: BP 121/77; PULSE 76; RESP 21; TEMP 97.7; O2SAT 96
[2018-01-01 07:42] LABS: ALBUMIN 2.7 GM/DL (3.4-5.0); ALKALINE PHOSPHATASE 79 U/L (45-117); ALT (GPT) 22 U/L (12-78); AST (GOT) 16 U/L (15-37); BICARBONATE 29.2 MEQ/L (21.0-32.0); BLOOD UREA NITROGEN 24 MG/DL (7-18); CALCIUM 8.3 MG/DL (8.5-10.1); CHLORIDE 100 MEQ/L (98-107); CREATININE 0.71 MG/DL (0.60-1.30); GLOMERULAR FILTRATION RATE 108 ML/MIN (>89); GLUCOSE,RANDOM 170 MG/DL (74-106); SODIUM (NA) 138 MEQ/L (136-145); TOTAL BILIRUBIN ADULT 0.9 MG/DL (0.2-1.0); TOTAL PROTEIN 5.9 GM/DL (6.4-8.2)
[2018-01-01] MEDS ORDERED: PANTOPRAZOLE SOD 40 MG DELAYED RELEASE TAB PO SCH (09:00)
[2018-01-01] MEDS ORDERED: NON-FORMULARY DRUG (Omeprazole 40 MG) PO SCH (09:00)
[2018-01-01] MEDS ORDERED: LINACLOTIDE 72 MCG PO SCH (09:00)
[2018-01-01] MEDS ORDERED: LACTOBACILLUS ACIDOPHILUS TAB PO SCH (09:00)
[2018-01-01] MEDS ORDERED: FUROSEMIDE 40 MG TAB PO SCH (09:00)
[2018-01-01] MEDS ORDERED: MEGESTROL ACETATE SUSP 400 MG/10 ML CUP PO SCH (09:00)
[2018-01-01] MEDS ORDERED: LOSARTAN 50 MG TAB PO SCH (09:00)
[2018-01-01] MEDS ORDERED: PARoxetine HCL 20 MG TAB PO SCH (09:00)
[2018-01-01] MEDS ORDERED: METOLAZONE 2.5 MG TAB PO SCH (09:00)
[2018-01-01] MEDS ORDERED: POTASSIUM CHLORIDE 20 MEQ CONTROLLED RELEASE TAB PO SCH (09:00)
[2018-01-01] MEDS ORDERED: FINASTERIDE 5 MG TAB PO SCH (09:00)
[2018-01-01] MEDS ORDERED: LACTTAB8 PO (10:01)
[2018-01-01] MEDS ORDERED: LEVA750T9 PO (10:01)
[2018-01-01] MEDS ORDERED: LEVOFLOXACIN 750 MG TAB PO ONE (10:15)
--- NOTE | 2018-01-01 11:01 | HHI.DS ---
Discharge Summary Admission Date Dec 31, 2017 at 18:33 Discharge Date: Jan 01, 2018 Admitting Diagnosis Pneumonia, sepsis, metastatic cancer (1) Pneumonia ICD Code: J18.9 - Pneumonia, unspecified organism Diagnosis: Principal Status: Acute (2) Metastatic cancer ICD Code: C79.9 - Secondary malignant neoplasm of unspecified site Diagnosis: Principal Status: Acute (3) Sepsis ICD Code: A41.9 - Sepsis, unspecified organism Diagnosis: Principal Status: Acute Procedures none Brief History - From Admission Mr. Eastman is a 77-year-old male. As an outpatient he has had worsening of breathing and has been sent into the ER today by his radiation oncologist. 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 He was planning on having radiation to the brain in the next few weeks. We discussed how lung cancer can be an increased risk for pneumonia. The patient understands this. Patient has tachycardia and leukocytosis in addition to pneumonia which qualifies him for sepsis. Lactic acid levels are pending. She does not describe any fever but he has had a mild cough. His primary symptom has been shortness of breath and tachycardia. No exacerbation of his COPD or CHF at this point. His A. fib is present but no evidence for RVR at this point. The patient describes back pain and some abdominal pain. No central chest pain. No other complaints. CBC/BMP: 01/01/18 0655 01/01/18 0655 Significant Findings Laboratory Tests Test 12/31/17 14:30 12/31/17 17:21 12/31/17 18:35 01/01/18 06:55 White Blood Count 20.8 TH/MM3 (4.0-11.0) 20.1 TH/MM3 (4.0-11.0) Neutrophils (%) (Auto) 93.3 % (16.0-70.0) 93.2 % (16.0-70.0) Lymphocytes (%) (Auto) 1.5 % (9.0-44.0) 1.8 % (9.0-44.0) Neutrophils # (Auto) 19.5 TH/MM3 (1.8-7.7) 18.8 TH/MM3 (1.8-7.7) Lymphocytes # (Auto) 0.3 TH/MM3 (1.0-4.8) 0.4 TH/MM3 (1.0-4.8) Prothrombin Time 11.9 SEC (9.8-11.6) Activated Partial Thromboplast Time 21.4 SEC (24.3-30.1) Blood Urea Nitrogen 28 MG/DL (7-18) 24 MG/DL (7-18) Random Glucose 140 MG/DL (74-106) 170 MG/DL (74-106) Sodium Level 135 MEQ/L (136-145) Potassium Level 3.0 MEQ/L (3.5-5.1) Chloride Level 94 MEQ/L (98-107) Urine Urobilinogen 4.0 OR GREATER mg/dL (LESS Lactic Acid Level 2.3 mmol/L (0.4-2.0) 2.5 mmol/L (0.4-2.0) Total Protein 5.9 GM/DL (6.4-8.2) Albumin 2.7 GM/DL (3.4-5.0) Calcium Level 8.3 MG/DL (8.5-10.1) Hospital Course Mr. Eastman is a 77-year-old male. He was admitted secondary to pneumonia in the presence of lung cancer with metastasis. He had sepsis upon arrival but quickly responded to antibiotic treatments. He also was oxygen dependent upon arrival but has weaned off oxygen overnight. At this point he is nearing his regular baseline and medically stable and cleared for discharge to home on p.o. Levaquin with probiotics. Discharge home today, medically clear and stable. Pt Condition on Discharge: Stable Discharge Disposition: Discharge Home Discharge Time: <= 30 minutes Discharge Instructions DIET: Follow Instructions for: As Tolerated, No Restrictions Activities you can perform: Regular-No Restrictions Follow up Referrals: PCP Follow-up - 2 Weeks New Medications: Lactobacillus Acidophilus (Lactobacillus Acidophilus) 1 Billion Cell Tab 1 TAB PO TIDAC for Nutritional Supplement, #30 TAB 0 Refills Levofloxacin (Levaquin) 750 Mg Tablet 750 MG PO DAILY for Infection, #9 TAB 0 Refills Continued Medications: Amiodarone (Amiodarone) 100 Mg Tab 100 MG PO for Regulate Heart Beat, #30 TAB 0 Refills Apixaban (Eliquis) 5 Mg Tab 5 MG PO BID for Blood Clot Prevention, #60 TAB 0 Refills Atorvastatin (Atorvastatin) 40 Mg Tab 40 MG PO HS for Cholesterol Management, #30 TAB 0 Refills Dexamethasone (Dexamethasone) 4 Mg Tab 4 MG PO BID, #60 TAB 0 Refills Diazepam (Diazepam) 5 Mg Tab 5 MG PO BID PRN for ANXIETY, TAB 0 Refills Finasteride (Finasteride) 5 Mg Tab 5 MG PO DAILY for Manage Prostate Problems, #30 TAB 0 Refills Do not crush. Furosemide (Lasix) 40 Mg Tab 40 MG PO DAILY, #30 TAB 0 Refills Gabapentin (Gabapentin) 300 Mg Cap 300 MG PO BID, #60 CAP 0 Refills Hydrocodone-Acetaminophen (Hydrocodone-Acetaminophen) 5-325 mg Tab 1 TAB PO BID PRN for PAIN, TAB 0 Refills Hydrocodone-Homatropine Liq (Hydromet Liq) 5-1.5 Mg/5 Ml Syrp 10 ML PO Q6H PRN for COUGH, ML 0 Refills Levothyroxine (Levothyroxine) 100 Mcg Tab 100 MCG PO DAILY for Thyroid, #30 TAB 0 Refills Linaclotide (Linzess) 145 Mcg Cap 72 MCG PO every third day, CAP 0 Refills Losartan (Losartan) 50 Mg Tab 50 MG PO DAILY for Blood Pressure Management, #30 TAB 0 Refills Megestrol Liq (Megestrol Liq) 40 Mg/Ml Susp 20 ML PO DAILY for Improve Appetite, #240 ML 0 Refills Metolazone (Metolazone) 2.5 Mg Tab 2.5 MG PO 3xweek, #30 TAB 0 Refills Omeprazole (Omeprazole) 40 Mg Cap 40 MG PO DAILY, #30 CAP 0 Refills Ondansetron (Zofran) 4 Mg Tab 4 MG PO Q8HR PRN for NAUSEA OR VOMITING, TAB 0 Refills Paroxetine (Paroxetine) 20 Mg Tab 20 MG PO DAILY, #30 TAB 0 Refills Potassium Chloride ER (Potassium Chloride ER) 20 Meq Tab 20 MEQ PO DAILY for Electrolyte Replacement, #30 TAB 0 Refills Ayaz Jiang MD Jan 01, 2018 11:01
[2018-01-01 11:23] LABS: BANDS 4 % (0-6); LYMPHOCYTES 6 % (9-44); MONOCYTES 5 % (0-8); NEUTROPHIL # MANUAL DIFF 17.9 TH/MM3 (1.8-7.7); POLYS (SEG NEUTROPHILS) 85 % (16-70)
[2018-01-01] MEDS ORDERED: AZITHROMYCIN INJ 500 MG in SODIUM CHLOR 0.9% 250 ML INJ 250 ML IV SCH (18:00)
[2018-01-01] MEDS ORDERED: cefTRIAXone INJ 1,000 MG in SODIUM CHLORIDE 0.9% INJ 100 ML IV SCH (18:00)
--- NOTE | 2018-01-01 20:29 | EKG ---
Date Performed: 12/31/2017 Time Performed: 14:35:37 PTAGE: 77 years EKG: ATRIAL FLUTTER/TACHYCARDIA WITH ABERRANT CONDUCTION OR VENTRICULAR PREMATURE COMPLEXES BERNARDO ED LEFT AXIS DEVIATION MODERATE INTRAVENTRICULAR CONDUCTION DELAY NONSPECIFIC T-WAVE ABNORMALITY When compared to previous tracing, atrial fibrillation/flutter has Replaced sinus tachycardia. ABNORMAL E CG PREVIOUS TRACING : 09/30/2014 16.11 DOCTOR: Abdelrahman Vazquez Interpretating Date/Time 01/01/2018 20:28:51
== END 2018-01-01 10:28 | disposition home or self-care (01) | DRG 871 ==
LOC: NEPC 12:55 → NEDA 18:33 → NEPGCP 19:32
PROVIDERS: ADMIT Hospitalist; ATTEND Hospitalist
DX: A41.9 Sepsis, unspecified organism (principal); J18.9 Pneumonia, unspecified organism; I11.0 Hypertensive heart disease with heart failure; C34.90 Malignant neoplasm of unspecified part of unspecified bronchus or lung; I50.9 Heart failure, unspecified; C79.31 Secondary malignant neoplasm of brain; J44.0 Chronic obstructive pulmonary disease with (acute) lower respiratory infection; D64.9 Anemia, unspecified; I48.91 Unspecified atrial fibrillation; Z79.02 Long term (current) use of antithrombotics/antiplatelets; M19.90 Unspecified osteoarthritis, unspecified site; E78.5 Hyperlipidemia, unspecified; E03.9 Hypothyroidism, unspecified; H91.10 Presbycusis, unspecified ear; Z97.4 Presence of external hearing-aid; K21.9 Gastro-esophageal reflux disease without esophagitis; I25.10 Atherosclerotic heart disease of native coronary artery without angina pectoris; Z87.891 Personal history of nicotine dependence
CPT/HCPCS: 71045; 71275; 74177; 80053; 81001; 82550; 83605; 83690; 83735; 83880; 84484; 85007; 85025; 85027; 85610; 85730; 87040; 93005; J0456; J0696; J7030; J7050; J8540; Q9967

== ENCOUNTER 2018-01-10 14:51 | Inpatient (IN) ==
--- NOTE | 2018-01-10 15:17 | ED ---
HPI General Chief complaint: Weakness Stated complaint: weakness/not eating Time Seen by Provider: 01/10/18 15:11 Source: patient Mode of arrival: ambulatory Limitations: no limitations History of Present Illness HPI Narrative: Patient was admitted for pneumonia on December 31. Patient returns today complaining of decreased appetite and increased generalized weakness since yesterday, he was discharged on Levaquin back on the end of December. Complaint: generalized weakness Onset (ago): day(s) (1) Duration: progressively worsening Location: generalized Migration: none Severity: moderate Severity scale (1-10): 4 Relieving factors: none Exacerbating factors: none Associated symptoms: denies other symptoms Related Data Home Medications Medication Instructions Recorded Confirmed Lactobacillus acidoph-L.bulgar 1 tab PO TID 01/10/18 01/10/18 [Floranex] amiodarone 100 mg PO MOWEFR 01/10/18 01/10/18 apixaban [Eliquis] 5 mg PO BID 01/10/18 01/10/18 atorvastatin [Lipitor] 40 mg PO DAILY 01/10/18 01/10/18 dexamethasone [Decadron] 4 mg PO Q12H 01/10/18 01/10/18 diazepam 5 mg PO BID PRN 01/10/18 01/10/18 finasteride 5 mg PO DAILY 01/10/18 01/10/18 furosemide [Lasix] 40 mg PO BID 01/10/18 01/10/18 gabapentin 900 mg PO BID 01/10/18 01/10/18 hydrocodone-acetaminophen [[place]] 1 tab PO BID PRN 01/10/18 01/10/18 hydrocodone-homatropine [Hydromet] 10 ml PO Q6HR PRN 01/10/18 01/10/18 levofloxacin 750 mg PO DAILY 01/10/18 01/10/18 levothyroxine 100 mcg PO DAILY 01/10/18 01/10/18 linaclotide [Linzess] 72 mcg PO DIRECTED PRN 01/10/18 01/10/18 losartan 50 mg PO DAILY 01/10/18 01/10/18 megestrol 800 mg PO DAILY 01/10/18 01/10/18 metolazone 5 mg PO MOWEFR 01/10/18 01/10/18 omeprazole 40 mg PO DAILY 01/10/18 01/10/18 ondansetron [Zofran ODT] 4 mg PO Q6HR PRN 01/10/18 01/10/18 paroxetine HCl [Paxil] 20 mg PO DAILY 01/10/18 01/10/18 potassium chloride 20 meq PO DAILY 01/10/18 01/10/18 Allergies Allergy/AdvReac Type Severity Reaction Status Date / Time No Known Allergies Allergy Uncoded 07/05/15 10:28 Review of Systems Except as stated in HPI: all other systems reviewed are negative [facility] History History Provided By: Patient Medical History Medical History Anemia (Acute) Atrial fibrillation (Acute) CAD (coronary artery disease) (Acute) CHF (congestive heart failure) (Acute) COPD (chronic obstructive pulmonary disease) (Acute) GERD (gastroesophageal reflux disease) (Acute) HTN (hypertension) (Acute) Hypothyroid (Acute) Lung cancer (Acute) Osteoarthritis (Acute) Serum lipids high (Acute) Surgical History Surgical History H/O hernia repair (Acute) Social History Social History Substance History: No History of Abuse Second Hand Smoke Exposure: No Smoking Status: Former smoker How Often Do You Have a Drink Containing Alcohol: Never Recent Travel in [facility] within the Last 8 Weeks: No Recent Out of Country Travel within the Last 8 Weeks: No Exam Narrative Exam Narrative: GENERAL: Elderly male in distress due to palpitations. SKIN: Warm and dry. HEAD: Atraumatic. Normocephalic. EYES: Pupils equal and round. No scleral icterus. No injection or drainage. ENT: No nasal bleeding or discharge. Dry mucous membranes NECK: Trachea midline. No JVD. CARDIOVASCULAR: Tachycardic rate, irregularly irregular rhythm RESPIRATORY: No accessory muscle use. Tachypneic, right-sided crackles to right lower lobe. Moderate to good tidal volume bilaterally GASTROINTESTINAL: Abdomen soft, non-tender, nondistended. No rebound or guarding MUSCULOSKELETAL: Extremities without clubbing, cyanosis, or edema. No obvious deformities. NEUROLOGICAL: Awake and alert. No obvious cranial nerve deficits. Motor grossly within normal limits. Five out of 5 muscle strength in the arms and legs. Normal speech. PSYCHIATRIC: Appropriate mood and affect; insight and judgment normal. Course Initial Documented Vital Signs Temperature 97.4 F L 01/10/18 14:56 Pulse Rate 115 H 01/10/18 14:56 Respiratory Rate 20 01/10/18 14:56 Blood Pressure 144/100 H 01/10/18 14:56 Pulse Oximetry 95 01/10/18 14:56 Last Documented Vital Signs Temperature 97.4 F L 01/10/18 14:56 Pulse Rate 99 H 01/10/18 18:20 Respiratory Rate 20 01/10/18 18:20 Blood Pressure 114/65 01/10/18 18:20 Pulse Oximetry 92 L 01/10/18 18:20 Critical Care Time Critical Care Time: Yes Total Critical Care Time: 45 Attestation: Aggregate critical care time was 45 minutes. Time to perform other separately billable procedures was not included in the critical care time. My time did not include minutes spent treating any other patients simultaneously or on activities that did not directly contribute to the patient's treatment. The services I provided to this patient were to treat and/or prevent clinically significant deterioration that could result in: Cardiac ischemia, sepsis, other end organ conditions that could deteriorate and lead to I provided critical care services requiring my management, as noted below: Chart data review, documentation time, medication orders and management, vital sign assessments/reviewing monitor data, ordering and reviewing lab tests, ordering and interpreting/reviewing x-rays and diagnostic studies, care of the patient and discussion of the patient with the admitting physicians. Medical Decision Making MDM Narrative Medical decision making narrative: CBC shows a leukocytosis of 23,000 with a left shift with 92%, hemoconcentration of a hemoglobin of 18/52 normal platelet count Electrolytes were within normal limits with exception of a random glucose of 245 , prerenal azotemia with a BUN of 50 First set of cardiac enzymes negative LFTs normal, beta natruretic peptide normal, TSH screen suggestive of hypothyroidism Chest x-ray shows increasing right lower lobe consolidation since December 31 Lab Data Result diagrams: 01/10/18 15:46 01/10/18 15:46 Lab Results 01/10/18 01/10/18 01/10/18 Range/Units 15:46 15:46 15:46 WBC 23.4 H (4.0-11.0) th/mm3 RBC 5.73 (4.50-5.90) mil/mm3 Hgb 17.5 H (13.0-17.0) gm/dL Hct 51.6 H (39.0-51.0) % MCV 90.1 (80.0-100.0) fL MCH 30.6 (27.0-34.0) pg MCHC 33.9 (32.0-36.0) % RDW 15.1 (11.6-17.2) % Plt Count 228 (150-450) th/mm3 MPV 8.5 (7.0-11.0) fL Prelim Diff (Auto) Slide review pending Neut % (Auto) 91.6 H (16.0-70.0) % Lymph % (Auto) 1.9 L (9.0-44.0) % [place] % (Auto) 4.9 (0.0-8.0) % Eos % (Auto) 1.3 (0.0-4.0) % Baso % (Auto) 0.3 (0.0-2.0) % Neut # (Auto) 21.4 H (1.8-7.7) th/mm3 Lymph # (Auto) 0.4 L (1.0-4.8) th/mm3 [place] # (Auto) 1.1 H (0.0-0.9) th/mm3 Eos # (Auto) 0.3 (0.0-0.4) th/mm3 Baso # (Auto) 0.1 (0.0-0.2) th/mm3 WBC Differential . Diff Scan Auto diff confirmed Differential Comment . Platelet Estimate Normal (Normal) Platelet Morphology Normal (Normal) RBC Morphology Normal (Normal) Sodium 137 (136-145) meq/L Potassium 4.1 (3.5-5.1) meq/L Chloride 98 (98-107) meq/L Carbon Dioxide 25.2 (21.0-32.0) meq/L Anion Gap 14 (5-15) meq/L BUN 50 H (7-18) mg/dL Creatinine 1.14 (0.60-1.30) mg/dL Estimated GFR 63 L (>89) mL/min POC Glucose (68-110) mg/dl Random Glucose 245 H (74-106) mg/dL Calcium 8.7 (8.5-10.1) mg/dL Total Bilirubin 1.4 H (0.2-1.0) mg/dL AST 31 (15-37) U/L ALT 29 (12-78) U/L Alkaline Phosphatase 137 H (45-117) U/L Troponin I 0.04 (0.02-0.05) ng/mL B-Natriuretic Peptide 56 (0-100) pg/mL Total Protein 6.8 (6.4-8.2) g/dL Albumin 3.4 (3.4-5.0) g/dL TSH 3.860 H (0.358-3.740) uIU/mL 01/10/18 Range/Units 15:46 WBC (4.0-11.0) th/mm3 RBC (4.50-5.90) mil/mm3 Hgb (13.0-17.0) gm/dL Hct (39.0-51.0) % MCV (80.0-100.0) fL MCH (27.0-34.0) pg MCHC (32.0-36.0) % RDW (11.6-17.2) % Plt Count (150-450) th/mm3 MPV (7.0-11.0) fL Prelim Diff (Auto) Neut % (Auto) (16.0-70.0) % Lymph % (Auto) (9.0-44.0) % [place] % (Auto) (0.0-8.0) % Eos % (Auto) (0.0-4.0) % Baso % (Auto) (0.0-2.0) % Neut # (Auto) (1.8-7.7) th/mm3 Lymph # (Auto) (1.0-4.8) th/mm3 [place] # (Auto) (0.0-0.9) th/mm3 Eos # (Auto) (0.0-0.4) th/mm3 Baso # (Auto) (0.0-0.2) th/mm3 WBC Differential Diff Scan Differential Comment Platelet Estimate (Normal) Platelet Morphology (Normal) RBC Morphology (Normal) Sodium (136-145) meq/L Potassium (3.5-5.1) meq/L Chloride (98-107) meq/L Carbon Dioxide (21.0-32.0) meq/L Anion Gap (5-15) meq/L BUN (7-18) mg/dL Creatinine (0.60-1.30) mg/dL Estimated GFR (>89) mL/min POC Glucose 244 H (68-110) mg/dl Random Glucose (74-106) mg/dL Calcium (8.5-10.1) mg/dL Total Bilirubin (0.2-1.0) mg/dL AST (15-37) U/L ALT (12-78) U/L Alkaline Phosphatase (45-117) U/L Troponin I (0.02-0.05) ng/mL B-Natriuretic Peptide (0-100) pg/mL Total Protein (6.4-8.2) g/dL Albumin (3.4-5.0) g/dL TSH (0.358-3.740) uIU/mL Imaging Data Radiologist's impression: ITS Impressions Chest X-Ray 01/10/18 15:13 CONCLUSION: Slight increase in right lung consolidation since December 31. Differential diagnosis includes pneumonia and aspiration. ECG Data EKG Prior to Arrival: No Attestation: I personally reviewed and interpreted this ECG as follows: Prior ECG tracings: not available for review Interpretation: EKG shows atrial fibrillation with RVR 1 30 bpm, no evidence of any ST elevation OR pattern noted Discharge Plan Discharge Disposition Patient Disposition: 30 Still Patient Discharge Condition Condition: Stable Discharge Details Discharge Problem: RLL pneumonia, Atrial fibrillation with RVR, Sepsis Physicians Team ED Provider: Filipe Sheffield Primary Care Provider: Pawel John Attending Provider: Ayaz Jiang Status ED Status: Admitted Patient
[2018-01-10 16:18] LABS: Baso # (Auto) 0.1 th/mm3 (0.0-0.2); Baso % (Auto) 0.3 % (0.0-2.0); Eos # (Auto) 0.3 th/mm3 (0.0-0.4); Eos % (Auto) 1.3 % (0.0-4.0); Hematocrit 51.6 % (39.0-51.0); Hemoglobin 17.5 gm/dL (13.0-17.0); Lymph # (Auto) 0.4 th/mm3 (1.0-4.8); Lymph % (Auto) 1.9 % (9.0-44.0); Mean Corpuscular HGB Conc 33.9 % (32.0-36.0); Mean Corpuscular Hemoglobin 30.6 pg (27.0-34.0); Mean Corpuscular Volume 90.1 fL (80.0-100.0); Mean Platelet Volume 8.5 fL (7.0-11.0); Mono # (Auto) 1.1 th/mm3 (0.0-0.9); Mono % (Auto) 4.9 % (0.0-8.0); Neut # (Auto) 21.4 th/mm3 (1.8-7.7); Neut % (Auto) 91.6 % (16.0-70.0); Platelet Count 228 th/mm3 (150-450); Red Blood Count 5.73 mil/mm3 (4.50-5.90); Red Cell Distribution Width 15.1 % (11.6-17.2); White Blood Count 23.4 th/mm3 (4.0-11.0)
[2018-01-10] MEDS ORDERED: Sod Chloride 0.9% Inj 1,000 ML IV.SIG ONE (16:19)
[2018-01-10] MEDS ORDERED: Labetalol HCl Inj 100 MG/20 ML Vial IV.PUSH ONE (16:19)
--- NOTE | 2018-01-10 16:20 | XR ---
EXAM DATE: 01/10/2018 3:28 PM EDT AGE/SEX: 77 years / Male INDICATIONS: Weakness. Loss of appetite. CLINICAL DATA: This is the patient's initial encounter. Patient reports that signs and symptoms have been present for 3 days and indicates a pain score of 0/10. MEDICAL/SURGICAL HISTORY: . Congestive heart failure. Hypertension. Carcinoma, lung. AFIB. Non e. [place] [facility] [place]. . FINDINGS: There is consolidation in the right lung which is stable to slightly increased from December 31. Left esperanza g remains relatively clear. Multiple old rib fractures. Tortuous aorta. No significant effusion. Hear t size enlarged. CONCLUSION: Slight increase in right lung consolidation since December 31. Differential diagnosis includes pneumonia and aspiration. Electronically signed by: John Andrea MD 01/10/2018 4:19 PM EDT
[2018-01-10 16:46] LABS: Alanine Aminotransferase 29 U/L (12-78); Albumin 3.4 g/dL (3.4-5.0); Anion Gap 14 meq/L (5-15); Aspartate Aminotransferase 31 U/L (15-37); Blood Urea Nitrogen 50 mg/dL (7-18); Calcium 8.7 mg/dL (8.5-10.1); Carbon Dioxide 25.2 meq/L (21.0-32.0); Chloride 98 meq/L (98-107); Glomerular Filtration Rate 63 mL/min (>89); Glucose,Random 245 mg/dL (74-106); Potassium 4.1 meq/L (3.5-5.1); Sodium 137 meq/L (136-145)
[2018-01-10 16:56] LABS: Alkaline Phosphatase 137 U/L (45-117); Total Protein 6.8 g/dL (6.4-8.2); Troponin I 0.04 ng/mL (0.02-0.05)
[2018-01-10 17:14] LABS: Platelet Estimate Normal (Normal); Platelet Morphology Normal (Normal); RBC Morphology Normal (Normal)
[2018-01-10] MEDS ORDERED: TOBRAMYCIN IV.SIG STA (17:15)
[2018-01-10] MEDS ORDERED: Sodium Chlor 0.9% Inj 500 ML IV.SIG ONE (17:15)
[2018-01-10] MEDS ORDERED: SODIUM CHLOR 0.9% IV.SIG STA (17:15)
--- NOTE | 2018-01-10 18:17 | ECG ---
Date Performed: 01/10/2018 Time Performed: 15:36:00 PTAGE: 77 years EKG: ATRIAL FIBRILLATION WITH RAPID VENTRICULAR RESPONSE LEFT AXIS DEVIATION ABNORMAL ECG PREVIOUS TRACING : 12/31/2017 14.35 Compared to previous tracing, heart rate has increased, PVC s are no longer present. DOCTOR: Jigar Davila Interpretating Date/Time 01/10/2018 18:17:10
[2018-01-10] MEDS: Enoxaparin Inj 40 MG/0.4 ML Syringe SQ SCH (18:19)
[2018-01-10] MEDS ORDERED: Amiodarone 200 MG Tablet PO ONE (18:41)
--- NOTE | 2018-01-10 18:59 | P.HPIM ---
History of Present Illness Primary Care Physician: Pawel John History of Present Illness: Mr. Eastman is a 77-year-old male. She has a current history of lung cancer with metastasis to the brain and will be undergoing treatment. Today he went in for treatment but was feeling too weak. He says over the past several days he has been having progressive weakness with shortness of breath and chills and sweats. He had previously been on a treatment of Levaquin and has taken all of these treatments as an outpatient. Despite these treatments towards the end of his treatment he has been having a progressive worsening of his previous respiratory symptoms. Evaluation today shows that the patient has had recurrence of signs of infection and worsening finding on imaging. This likely represents Levaquin failure. - Diagnosis (1) Failure of outpatient treatment Inpatient Certification: I certify that the inpatient services were ordered in accordance with Medicare regulations governing the order. This includes certification that hospital inpatient services are reasonable and necessary and in the case of services not specified as inpatient-only under 42 CFR 419.22(n), that they are appropriately provided as inpatient services in accordance to with the 2-midnight benchmark under 43 CFR 412.3(e) Estimated Total Length of Stay (Days): 3 Plans for Post Hospital Care: SNF Review of Systems Constitutional: Reports fatigue, Reports fever(s), Reports malaise, Reports night sweats, Reports weakness Cardiovascular: Reports rapid, pounding, or irregular heartbeat, Reports shortness of breath, Denies chest pain Gastrointestinal: Denies abdominal pain, Denies bloating, Denies vomiting Skin/Breast: Denies rash, Denies skin pain, Denies skin ulcer, Denies yellowing of the skin Neurologic: Denies abnormal hearing, Denies abnormal movements, Denies abnormal speech PMFSH - History History Provided By: Patient - Medical History Medical History: Medical History (Last Updated 01/10/18 @ 15:32 by Nanda Velasco) Anemia Atrial fibrillation CAD (coronary artery disease) CHF (congestive heart failure) COPD (chronic obstructive pulmonary disease) GERD (gastroesophageal reflux disease) HTN (hypertension) Hypothyroid Lung cancer Osteoarthritis Serum lipids high - Surgical History Surgical History: Surgical History (Last Updated 01/10/18 @ 15:35 by Nanda Velasco) H/O hernia repair - Family History Family History: Family History (Last Updated 01/10/18 @ 18:55 by Ayaz Jiang MD) Mother Coronary artery disease Father Coronary artery disease - Tobacco History Second Hand Smoke Exposure: No Tobacco Use In Past 30 Days: No Smoking Status: Former smoker - Alcohol History How Often Do You Have a Drink Containing Alcohol: Never - Substance Use History Substance History: No History of Abuse - Travel History Recent Travel in the [place] Within the Last 8 Weeks: No Recent Travel Out of the Country Within the Last 8 Weeks: No - Immunization History Tetanus Immunization: <5 Years Hx Influenza Vaccine This Season: Yes Medications and Allergies Active Medications: Active Medications Al Hydroxide/Mg Hydroxide (Milk Of Juan Carlos Linikki) 30 ml PO Q12H PRN PRN Reason: Mild Constipation Amiodarone HCl (Cordarone) 100 mg PO ONCE ONE Stop: 01/10/18 18:42 Enoxaparin Sodium (Lovenox Inj) 40 mg SQ Q24H ZACH Last Admin: 01/10/18 18:19 Dose: Not Given Tobramycin Sulfate / Sodium (Chloride) 100 mls @ 100 mls/hr IV.SIG STAT STA Stop: 01/10/18 18:14 Sodium Chloride (Ns Inj) 1,000 mls @ 100 mls/hr IV.CONT .Q10H ZACH Cefepime HCl 2,000 mg/ Sodium (Chloride) 100 mls @ 200 mls/hr IV.SIG Q8H ZACH Azithromycin 500 mg/ Sodium (Chloride) 250 mls @ 250 mls/hr IV.SIG Q24H ZACH Metoclopramide HCl (Reglan Inj) 5 mg IV.PUSH Q6HR PRN; Protocol PRN Reason: NAUSEA OR VOMITING Sodium Chloride (Ns Flush) 2 ml IV.FLUSH PRN PRN PRN Reason: FLUSH AFTER USING IV ACCESS Allergies Allergy/AdvReac Type Severity Reaction Status Date / Time No Known Allergies Allergy Uncoded 07/05/15 10:28 Home Medications Medication Instructions Recorded Confirmed Type Lactobacillus acidoph-L.bulgar 1 tab PO TID 01/10/18 01/10/18 History [Floranex] amiodarone 100 mg PO MOWEFR 01/10/18 01/10/18 History apixaban [Eliquis] 5 mg PO BID 01/10/18 01/10/18 History atorvastatin [Lipitor] 40 mg PO DAILY 01/10/18 01/10/18 History dexamethasone [Decadron] 4 mg PO Q12H 01/10/18 01/10/18 History diazepam 5 mg PO BID PRN 01/10/18 01/10/18 History finasteride 5 mg PO DAILY 01/10/18 01/10/18 History furosemide [Lasix] 40 mg PO BID 01/10/18 01/10/18 History gabapentin 900 mg PO BID 01/10/18 01/10/18 History hydrocodone-acetaminophen [[place]] 1 tab PO BID PRN 01/10/18 01/10/18 History hydrocodone-homatropine [Hydromet] 10 ml PO Q6HR PRN 01/10/18 01/10/18 History levofloxacin 750 mg PO DAILY 01/10/18 01/10/18 History levothyroxine 100 mcg PO DAILY 01/10/18 01/10/18 History linaclotide [Linzess] 72 mcg PO DIRECTED PRN 01/10/18 01/10/18 History losartan 50 mg PO DAILY 01/10/18 01/10/18 History megestrol 800 mg PO DAILY 01/10/18 01/10/18 History metolazone 5 mg PO MOWEFR 01/10/18 01/10/18 History omeprazole 40 mg PO DAILY 01/10/18 01/10/18 History ondansetron [Zofran ODT] 4 mg PO Q6HR PRN 01/10/18 01/10/18 History paroxetine HCl [Paxil] 20 mg PO DAILY 01/10/18 01/10/18 History potassium chloride 20 meq PO DAILY 01/10/18 01/10/18 History Exam Vital signs: Vital Signs 01/10/18 14:56 01/10/18 15:26 01/10/18 16:31 Temperature 97.4 F L Pulse Rate 115 H 124 H 126 H Respiratory Rate 20 19 20 Blood Pressure 144/100 H 127/97 H 121/76 Pulse Oximetry 95 96 93 L 01/10/18 18:20 Temperature Pulse Rate 99 H Respiratory Rate 20 Blood Pressure 114/65 Pulse Oximetry 92 L Intake & Output 01/09/18 01/10/18 01/10/18 18:59 06:59 18:59 Weight 97 kg - Routine HEENT Exam Comments: GENERAL: NAD, A&Ox3 HEAD: Normocephalic. NECK: Supple, trachea midline. No lymphadenopathy. EYES: No scleral icterus. No injection or drainage. CARDIOVASCULAR: Regular rate and rhythm without murmurs, gallops, or rubs. RESPIRATORY: Breath sounds equal bilaterally. No accessory muscle use. Bilateral rhonchi. GASTROINTESTINAL: Abdomen soft, non-tender, nondistended. MUSCULOSKELETAL: No cyanosis, or edema. SKIN: Warm and dry. NEURO: No focal neurological deficits. Results - Labs CBC & Chem 7: 01/10/18 15:46 01/10/18 15:46 Labs: Short CBC 01/10/18 Range/Units 15:46 WBC 23.4 H (4.0-11.0) th/mm3 Hgb 17.5 H (13.0-17.0) gm/dL Hct 51.6 H (39.0-51.0) % Plt Count 228 (150-450) th/mm3 BMP 01/10/18 15:46 Sodium 137 Potassium 4.1 Chloride 98 Carbon Dioxide 25.2 BUN 50 H Creatinine 1.14 Calcium 8.7 Cardiac Enzymes 01/10/18 Range/Units 15:46 Troponin I 0.04 (0.02-0.05) ng/mL Liver Function 01/10/18 Range/Units 15:46 Total Bilirubin 1.4 H (0.2-1.0) mg/dL AST 31 (15-37) U/L ALT 29 (12-78) U/L Alkaline Phosphatase 137 H (45-117) U/L Albumin 3.4 (3.4-5.0) g/dL - Imaging Impressions Chest X-Ray 01/10/18 15:13 CONCLUSION: Slight increase in right lung consolidation since December 31. Differential diagnosis includes pneumonia and aspiration. Caprini VTE Risk Assessment Caprini VTE Risk Assessment: Moderate/High Risk (score >= 2) Caprini Risk Assessment Model: Point Value = 1 Point Value = 2 Point Value = 3 Point Value = 5 Age 41-60 Minor surgery BMI > 25 kg/m2 Swollen legs Varicose veins or History of unexplained or recurrent spontaneous Oral contraceptives or hormone replacement Sepsis (< 1 month) Serious lung disease, including pneumonia (< 1 month) Abnormal pulmonary function Acute myocardial infarction Congestive heart failure (< 1 month) History of inflammatory bowel disease Medical patient at bed rest Age 61-74 Arthroscopic surgery Major open surgery (> 45 min) Laparoscopic surgery (> 45 min) Malignancy Confined to bed (> 72 hours) Immobilizing plaster cast Central venous access Age >= 75 History of VTE Family history of VTE Factor V Leiden Prothrombin [id number] Lupus anticoagulant Anticardiolipin antibodies Elevated serum homocysteine Heparin-induced thrombocytopenia Other congenital or acquired thrombophilia Stroke (< 1 month) Elective arthroplasty Hip, pelvis, or leg fracture Acute spinal cord injury (< 1 month) Prophylaxis Regimen: Total Risk Factor Score Risk Level Prophylaxis Regimen 0-1 Low Early ambulation 2 Moderate Order ONE of the following: *Sequential Compression Device (SCD) *Heparin 5000 units SQ BID 3-4 Higher Order ONE of the following medications: *Heparin 5000 units SQ TID *Enoxaparin/Lovenox 40 mg SQ daily (WT < 150 kg, CrCl > 30 mL/min) *Enoxaparin/Lovenox 30 mg SQ daily (WT < 150 kg, CrCl > 10-29 mL/min) *Enoxaparin/Lovenox 30 mg SQ BID (WT < 150 kg, CrCl > 30 mL/min) AND/OR *Sequential Compression Device (SCD) 5 or more Highest Order ONE of the following medications: *Heparin 5000 units SQ TID (Preferred with Epidurals) *Enoxaparin/Lovenox 40 mg SQ daily (WT < 150 kg, CrCl > 30 mL/min) *Enoxaparin/Lovenox 30 mg SQ daily (WT < 150 kg, CrCl > 10-29 mL/min) *Enoxaparin/Lovenox 30 mg SQ BID (WT < 150 kg, CrCl > 30 mL/min) AND *Sequential Compression Device (SCD) Assessment and Plan - Assessment (1) Failure of outpatient treatment Code(s): Z78.9 - Other specified health status Status: Acute - Plan 77-year-old male with lung cancer admitted secondary to pneumonia with sepsis, with outpatient treatment failure on Levaquin. Sepsis Follow vital signs closely Monitor on utility gelatin maker for resolution of tachycardia Monitor for improvement of leukocytosis Community-acquired pneumonia Outpatient treatment failure Pneumonia with lung cancer Immunocompromise in presence of cancer Treat with cefepime and azithromycin Probiotics Oxygen support as needed Monitor for improvement infectious signs including leukocytosis, tachycardia, and symptoms Infectious disease for recommendations Atrial fibrillation with RVR Additional amiodarone dose given Lopressor given in the ER Rate has improved Likely triggered by infection Treat infection Congestive heart failure Cardiovascular disease Patient reports no chest pain tonight no change to baseline treatments Follow on telemetry IV hydration overnight for sepsis postop day placed at approximately 8 hours Lung cancer Brain metastasis Continue monitoring and treatments as an outpatient with oncology and radiation oncology Anemia Follow CBC Hypertension Continue baseline treatment Follow blood pressures Adjust treatments as needed Hyperlipidemia Continue present treatment Follow as an outpatient COPD No exacerbations Follow for any signs of exacerbation Continue baseline treatments Nebulized albuterol as needed Hypothyroidism Continue baseline supplementation Follow as an outpatient Osteoarthritis Presbycusis Gastroesophageal reflux disease No exacerbations of these conditions Follow clinically DVT prophylaxis Eliquis
[2018-01-10] MEDS: Azithromycin Inj 500 MG in Sodium Chlor 0.9% Inj 250 ML IV.SIG SCH (22:34)
[2018-01-10] MEDS ORDERED: diazePAM 5 MG Tablet PO PRN (23:14)
[2018-01-11] MEDS ORDERED: Furosemide 40 MG Tablet PO SCH (09:00)
[2018-01-11] MEDS ORDERED: Sod Phosphate/Sod Biphosphate (Adult) Enema 133 ML Bottle RECTAL ONE (09:14)
[2018-01-11] MEDS: Finasteride 5 MG Tablet PO SCH (10:00)
[2018-01-11] MEDS: Gabapentin 300 MG Capsule PO SCH ×2 (10:00→21:21)
[2018-01-11] MEDS: Metoprolol Tartrate 25 MG Tablet PO SCH ×2 (10:01→21:21)
[2018-01-11] MEDS: Lactobacillus Acidophilus/L. Spores Tablet PO SCH ×3 (10:01→18:34)
[2018-01-11] MEDS: Levothyroxine 100 MCG Tablet PO SCH (10:22)
[2018-01-11] MEDS: Sod Chloride 0.9% Inj 1,000 ML IV.CONT SCH (10:23)
--- NOTE | 2018-01-11 11:23 | P.PN ---
Subjective Interval history: Follow-up for community acquired pneumonia with failed outpatient treatment, atrial fibrillation patient with a history of metastatic lung cancer. He denies any chest pain, shortness of breath, fever or chills. However he feels abdominal discomfort and would like to try [place] edema for constipation. Physical Exam Vital signs: Vital Signs 01/10/18 14:56 01/10/18 15:26 01/10/18 16:31 Temperature 97.4 F L Pulse Rate 115 H 124 H 126 H Respiratory Rate 20 19 20 Blood Pressure 144/100 H 127/97 H 121/76 Pulse Oximetry 95 96 93 L 01/10/18 18:20 01/10/18 21:20 01/10/18 22:00 Temperature 98.8 F Pulse Rate 99 H 100 H 98 H Respiratory Rate 20 18 Blood Pressure 114/65 109/77 Pulse Oximetry 92 L 94 L 01/11/18 00:00 01/11/18 00:05 01/11/18 03:00 Temperature Pulse Rate 104 H 97 H 98 H Respiratory Rate 16 Blood Pressure 104/64 Pulse Oximetry 96 01/11/18 04:00 01/11/18 04:10 01/11/18 07:52 Temperature Pulse Rate 110 H 101 H 98 H Respiratory Rate 16 Blood Pressure Pulse Oximetry 94 L 01/11/18 07:53 Temperature Pulse Rate 94 H Respiratory Rate Blood Pressure Pulse Oximetry Intake & Output 01/10/18 01/11/18 01/11/18 18:59 06:59 18:59 Intake Total 1079.5 / 1079.5 Balance 1079.5 / 1079.5 Weight 97 kg 95.4 kg Intake: IV 464.5 / 464.5 Azithromycin Inj 500 MG In NS 250 / 250 Inj 250 ML @ 250 mls/hr IV.SIG Q24H [facility] Rx#:[id number] Maxipime Inj 2,000 MG In NS Inj 100 / 100 100 ML @ 200 mls/hr IV.SIG STAT [facility] Rx#:[id number] Nebcin Inj 580 MG In NS Inj 100 114.5 / 114.5 ML @ 100 mls/hr IV.SIG STAT [facility] Rx#:[id number] Oral 240 / 240 Oral Supplement 375 / 375 Other: Date of Last Bowel Movement 01/11/18 # Bowel Movements 1 Narrative: GENERAL: Alert, oriented 3, NAD. SKIN: Warm and dry. HEAD: Normocephalic. EYES: No scleral icterus. No injection or drainage. NECK: Supple, trachea midline. No JVD or lymphadenopathy. CARDIOVASCULAR: Regular rate and rhythm without murmurs, gallops, or rubs. RESPIRATORY: Breath sounds equal bilaterally. No accessory muscle use. GASTROINTESTINAL: Abdomen soft, non-tender, nondistended. MUSCULOSKELETAL: No cyanosis, or edema. BACK: Nontender without obvious deformity. No CVA tenderness. Results - Labs CBC & Chem 7: 01/10/18 15:46 01/10/18 15:46 Laboratory Results - last 24 hr 01/10/18 01/10/18 01/10/18 15:46 15:46 15:46 WBC 23.4 H RBC 5.73 Hgb 17.5 H Hct 51.6 H MCV 90.1 MCH 30.6 MCHC 33.9 RDW 15.1 Plt Count 228 MPV 8.5 Prelim Diff (Auto) Slide review pending Neut % (Auto) 91.6 H Lymph % (Auto) 1.9 L [place] % (Auto) 4.9 Eos % (Auto) 1.3 Baso % (Auto) 0.3 Neut # (Auto) 21.4 H Lymph # (Auto) 0.4 L [place] # (Auto) 1.1 H Eos # (Auto) 0.3 Baso # (Auto) 0.1 WBC Differential . Diff Scan Auto diff confirmed Differential Comment . Platelet Estimate Normal Platelet Morphology Normal RBC Morphology Normal Sodium 137 Potassium 4.1 Chloride 98 Carbon Dioxide 25.2 Anion Gap 14 BUN 50 H Creatinine 1.14 Estimated GFR 63 L POC Glucose Random Glucose 245 H Lactic Acid Calcium 8.7 Total Bilirubin 1.4 H AST 31 ALT 29 Alkaline Phosphatase 137 H Troponin I 0.04 B-Natriuretic Peptide 56 Total Protein 6.8 Albumin 3.4 TSH 3.860 H 01/10/18 01/10/18 01/10/18 15:46 19:23 22:50 WBC RBC Hgb Hct MCV MCH MCHC RDW Plt Count MPV Prelim Diff (Auto) Neut % (Auto) Lymph % (Auto) [place] % (Auto) Eos % (Auto) Baso % (Auto) Neut # (Auto) Lymph # (Auto) [place] # (Auto) Eos # (Auto) Baso # (Auto) WBC Differential Diff Scan Differential Comment Platelet Estimate Platelet Morphology RBC Morphology Sodium Potassium Chloride Carbon Dioxide Anion Gap BUN Creatinine Estimated GFR POC Glucose 244 H Random Glucose Lactic Acid 3.9 H 3.5 H Calcium Total Bilirubin AST ALT Alkaline Phosphatase Troponin I B-Natriuretic Peptide Total Protein Albumin TSH Microbiology 01/10/18 15:46 Blood - Peripheral Aerobic Blood Culture - Preliminary No growth in 1 day 01/10/18 15:46 Blood - Peripheral Anaerobic Blood Culture - Preliminary No growth in 1 day 01/10/18 15:46 Blood - Peripheral Aerobic Blood Culture - Preliminary No growth in 1 day 01/10/18 15:46 Blood - Peripheral Anaerobic Blood Culture - Preliminary No growth in 1 day - Imaging Impressions Chest X-Ray 01/10/18 15:13 CONCLUSION: Slight increase in right lung consolidation since December 31. Differential diagnosis includes pneumonia and aspiration. Assessment and Plan - Assessment (1) Failure of outpatient treatment Code(s): Z78.9 - Other specified health status Status: Acute - Plan 77-year-old male with lung cancer admitted secondary to pneumonia with sepsis, with outpatient treatment failure on Levaquin. Sepsis (Heart 115, RR 20, WBC 23.4K, pneumonia) Community-acquired pneumonia Outpatient treatment failure Pneumonia with lung cancer Immunocompromise in presence of cancer Treat with cefepime and azithromycin Probiotics Oxygen support as needed Monitor for improvement infectious signs including leukocytosis, tachycardia, and symptoms Infectious disease consult pending. Will obtain CBC, BMP in the AM. Atrial fibrillation with RVR On home medication Amiodarone 100mg MWF Will start patient on Metoprolol 25mg BID to control heart rate. Congestive heart failure Will continue Lasix at a reduced dose 20mg BID. Lung cancer Brain metastasis Continue monitoring and treatments as an outpatient with oncology and radiation oncology Discussed with patient's - will consult Palliative care. Hypothyroidism Continue levothyroxine 100 mcg daily. DNR. Apixaban.
[2018-01-11 16:33] LABS: Bilirubin,Urine Negative (Negative); Clarity,Urine Clear (Clear); Color,Urine Yellow (Yellw/Straw); Glucose,Urine (UA) Negative (Negative); Leukocyte Esterase,Urine Negative (Negative); Mucus,Urine Few /lpf (Occasional); Nitrite,Urine Negative (Negative); Specific Gravity,Urine 1.024 (1.002-1.035); Squamous Epithelial Cell,Urine <1 /hpf (0-5)
--- NOTE | 2018-01-11 18:03 | P.CONID ---
History of Present Illness Service: ID Consult date: 01/11/18 Requesting Physician: Ayaz Jiang Reason for Consult: Evaluation and Mment of Non resolving pneumonia Primary Care Provider: Pawel John Family Provider: Pawel John History of Present Illness: is a 77 y/o CM with medical history significant for lung cancer with metastasis to the brain. Patient reports he sees as outpatient and has not been initiated on chemotherapy yet with plans to start next week. Patient also reports history of bowel obstruction and ? ileus. He was on a bowel regimen which lead to abrasion of his buttock cheeks and has been undergoing wound care for the same. He has been treated as outpatient for almost 10 plus days of oral levaquin with no response. He and tell me he was told he needs radiation treatment to shrink the tumor that is causing obstructive pneumonia and therefore is non resolving. On day of admission he was seen at outpatient oncology office and felt too weak. He also reports progressive shortness of breath associated with chills and sweats. ED evaluated patient for sepsis and workup initiated. ID consulted for non resolving pneumonia. dw At time of my evaluation, patient is on [facility] floor and in no cardiopulmonary distress. He is not on pressors, UO ok, not much cough. Review of Systems All other systems reviewed negative except as stated in HPI PMFSH - History History Provided By: Patient, Family Member - Medical History Medical History: Medical History (Last Updated 01/11/18 @ 08:04 by Miriam Lucero RN) Colon cancer (Acute) Lung cancer metastatic to brain (Acute) Hypothyroid (Acute) GERD (gastroesophageal reflux disease) (Acute) HTN (hypertension) (Acute) Serum lipids high (Acute) COPD (chronic obstructive pulmonary disease) (Acute) CHF (congestive heart failure) (Acute) CAD (coronary artery disease) (Acute) Osteoarthritis (Acute) Anemia (Acute) Atrial fibrillation Impaction of colon Lung cancer - Surgical History Surgical History: Surgical History (Last Updated 01/11/18 @ 08:03 by Miriam Lucero RN) H/O hernia repair (Acute) Hx of cholecystectomy - Family History Family History: Family History (Last Updated 01/10/18 @ 18:55 by Ayaz Jiang MD) Mother Coronary artery disease Father Coronary artery disease - Tobacco History Second Hand Smoke Exposure: No Tobacco Use In Past 30 Days: No Smoking Status: Former smoker - Alcohol History How Often Do You Have a Drink Containing Alcohol: Never - Substance Use History Substance History: No History of Abuse - Substance Use Type Alcohol Status: Sustained Remission Route Used: By Mouth Comment: Patient quit drinking 4 years ago. - Travel History Recent Travel in the [place] Within the Last 8 Weeks: No Recent Travel Out of the Country Within the Last 8 Weeks: No - Immunization History Tetanus Immunization: <5 Years Hx Influenza Vaccine This Season: Yes Medications and Allergies Active Medications: Active Medications Hydrocodone Bitart/Acetaminophen (Sledge 5/325) 1 tab PO BID PRN PRN Reason: PAIN 1-10 Last Admin: 01/11/18 14:30 Dose: 1 tab Al Hydroxide/Mg Hydroxide (Milk Of Juan Carlos Linikki) 30 ml PO Q12H PRN PRN Reason: Mild Constipation Albuterol (Albuterol Neb (Prn)) 2.5 mg NEB Q4HR NEB PRN PRN Reason: WHEEZING Amiodarone HCl (Cordarone) 100 mg PO MOWEFR [facility] Apixaban (Eliquis) 5 mg PO BID [facility] Last Admin: 01/11/18 10:01 Dose: 5 mg Atorvastatin Calcium (Lipitor) 40 mg PO DAILY [facility] Last Admin: 01/11/18 10:00 Dose: 40 mg Dexamethasone (Decadron) 4 mg PO Q12H [facility] Last Admin: 01/11/18 14:35 Dose: 4 mg Diazepam (Valium) 5 mg PO BID PRN PRN Reason: Anxiety Enoxaparin Sodium (Lovenox Inj) 40 mg SQ Q24H [facility] Last Admin: 01/10/18 18:19 Dose: Not Given Finasteride (Proscar) 5 mg PO DAILY [facility] Last Admin: 01/11/18 10:00 Dose: 5 mg Gabapentin (Neurontin) 900 mg PO BID [facility] Last Admin: 01/11/18 10:00 Dose: 900 mg Cefepime HCl 2,000 mg/ Sodium (Chloride) 100 mls @ 200 mls/hr IV.SIG Q8H [facility] Last Admin: 01/11/18 10:21 Dose: 200 mls/hr Azithromycin 500 mg/ Sodium (Chloride) 250 mls @ 250 mls/hr IV.SIG Q24H [facility] Last Infusion: 01/11/18 00:13 Dose: Infused Lactobacillus Acidophilus (Lactinex) 1 tab PO TID [facility] Last Admin: 01/11/18 14:30 Dose: 1 tab Levothyroxine Sodium (Synthroid) 100 mcg PO DAILY@0600 [facility] Last Admin: 01/11/18 10:22 Dose: Not Given Metoclopramide HCl (Reglan Inj) 5 mg IV.PUSH Q6HR PRN; Protocol PRN Reason: NAUSEA OR VOMITING Metoprolol Tartrate (Lopressor) 25 mg PO BID [facility] Last Admin: 01/11/18 10:01 Dose: 25 mg Morphine Sulfate (Morphine Inj) 4 mg IV.PUSH Q4H PRN PRN Reason: BREAKTHROUGH PAIN Sodium Chloride (Ns Flush) 2 ml IV.FLUSH PRN PRN PRN Reason: FLUSH AFTER USING IV ACCESS Allergies Allergy/AdvReac Type Severity Reaction Status Date / Time No Known Allergies Allergy Unverified 01/10/18 19:02 Home Medications Medication Instructions Recorded Confirmed Type Lactobacillus acidoph-L.bulgar 1 tab PO TID 01/10/18 01/10/18 History [Floranex] amiodarone 100 mg PO MOWEFR 01/10/18 01/10/18 History apixaban [Eliquis] 5 mg PO BID 01/10/18 01/10/18 History atorvastatin [Lipitor] 40 mg PO DAILY 01/10/18 01/10/18 History dexamethasone [Decadron] 4 mg PO Q12H 01/10/18 01/10/18 History diazepam 5 mg PO BID PRN 01/10/18 01/10/18 History finasteride 5 mg PO DAILY 01/10/18 01/10/18 History furosemide [Lasix] 40 mg PO BID 01/10/18 01/10/18 History gabapentin 900 mg PO BID 01/10/18 01/10/18 History hydrocodone-acetaminophen [Sledge] 1 tab PO BID PRN 01/10/18 01/10/18 History hydrocodone-homatropine [Hydromet] 10 ml PO Q6HR PRN 01/10/18 01/10/18 History levofloxacin 750 mg PO DAILY 01/10/18 01/10/18 History levothyroxine 100 mcg PO DAILY 01/10/18 01/10/18 History linaclotide [Linzess] 72 mcg PO DIRECTED PRN 01/10/18 01/10/18 History losartan 50 mg PO DAILY 01/10/18 01/10/18 History megestrol 800 mg PO DAILY 01/10/18 01/10/18 History metolazone 5 mg PO MOWEFR 01/10/18 01/10/18 History omeprazole 40 mg PO DAILY 01/10/18 01/10/18 History ondansetron [Zofran ODT] 4 mg PO Q6HR PRN 01/10/18 01/10/18 History paroxetine HCl [Paxil] 20 mg PO DAILY 01/10/18 01/10/18 History potassium chloride 20 meq PO DAILY 01/10/18 01/10/18 History Exam Vital signs: Vital Signs 01/10/18 18:20 01/10/18 21:20 01/10/18 22:00 Temperature 98.8 F Pulse Rate 99 H 100 H 98 H Respiratory Rate 20 18 Blood Pressure 114/65 109/77 Pulse Oximetry 92 L 94 L 01/11/18 00:00 01/11/18 00:05 01/11/18 03:00 Temperature Pulse Rate 104 H 97 H 98 H Respiratory Rate 16 Blood Pressure 104/64 Pulse Oximetry 96 01/11/18 04:00 01/11/18 04:10 01/11/18 07:00 Temperature Pulse Rate 110 H 101 H 119 H Respiratory Rate 16 Blood Pressure Pulse Oximetry 94 L 01/11/18 07:52 01/11/18 07:53 01/11/18 08:00 Temperature 97.5 F L Pulse Rate 98 H 94 H 111 H Respiratory Rate 20 Blood Pressure 113/74 Pulse Oximetry 93 L 01/11/18 09:00 01/11/18 10:00 01/11/18 11:00 Temperature Pulse Rate 106 H 118 H 102 H Respiratory Rate Blood Pressure Pulse Oximetry 01/11/18 12:00 01/11/18 14:00 01/11/18 15:00 Temperature Pulse Rate 96 H 94 H 95 H Respiratory Rate Blood Pressure Pulse Oximetry 01/11/18 16:21 Temperature Pulse Rate Respiratory Rate 20 Blood Pressure Pulse Oximetry Intake & Output 01/10/18 01/11/18 01/11/18 18:59 06:59 18:59 Intake Total 1079.5 / 1079.5 Balance 1079.5 / 1079.5 Weight 97 kg 95.4 kg Intake: IV 464.5 / 464.5 Azithromycin Inj 500 MG In NS 250 / 250 Inj 250 ML @ 250 mls/hr IV.SIG Q24H [facility] Rx#:[id number] Maxipime Inj 2,000 MG In NS Inj 100 / 100 100 ML @ 200 mls/hr IV.SIG STAT STA Rx#:[id number] Nebcin Inj 580 MG In NS Inj 100 114.5 / 114.5 ML @ 100 mls/hr IV.SIG STAT STA Rx#:[id number] Oral 240 / 240 Oral Supplement 375 / 375 Other: Date of Last Bowel Movement 01/11/18 01/11/18 # Bowel Movements 1 Narrative: GENERAL: Well-nourished well-developed, not in acute distress SKIN: Cool and dry, no generalized rash HEAD: Atraumatic. Normocephalic. No temporal or scalp tenderness. EYES: Pupils equal round and reactive. Scleral icterus. No injection or drainage. No petechia ENT: Nothing abnormal detected NECK: Trachea midline. Supple, nontender, no meningeal signs. CARDIOVASCULAR: HS audible. RESPIRATORY: Decreased air entry bilaterally R > L. GASTROINTESTINAL: Abdomen soft nontender. MUSCULOSKELETAL: Extremities without clubbing, cyanosis. NEUROLOGICAL: Alert oriented 3. Nonfocal. Buttock with abrasions. Psych cooperative IV line sites ok. Results - Labs CBC & Chem 7: 01/10/18 15:46 01/10/18 15:46 Labs: Laboratory Results - last 24 hr 01/10/18 01/10/18 01/11/18 19:23 22:50 15:50 Lactic Acid 3.9 H 3.5 H Urine Color Yellow Urine Clarity Clear Urine pH 7.0 Ur Specific [place] 1.024 Urine Protein 30 H Urine Glucose (UA) Negative Urine Ketones Negative Urine Occult Blood Negative Urine Nitrate Negative Urine Bilirubin Negative Urine Urobilinogen Less than 2 Ur Leukocyte Esterase Negative Urine WBC 5 Ur Squamous Epith Cells <1 Urine Mucus Few H Micro UA Comment Culture not ind Urine Culture Comments Culture not ind - Imaging ITS Impressions Chest X-Ray 01/10/18 15:13 CONCLUSION: Slight increase in right lung consolidation since December 31. Differential diagnosis includes pneumonia and aspiration. Assessment and Plan - Plan Sepsis present on admission Non resolving pneumonia Lung Cancer with brain mets H/o Bowel obstruction recently. Recs Continue Cefepime IV Start Vanco IV (trget trough 15-20) Urine legionella Ag Urine Pneumococcal Ag Follow blood cultures Oncology consult per request so Oncologists can talk to each other and help with decision making. Agree with palliative care consult. If goals remain aggressive will consider Bronchoscopy.
[2018-01-11] MEDS: Enoxaparin Inj 40 MG/0.4 ML Syringe SQ SCH (18:34)
[2018-01-11] MEDS ORDERED: Vancomycin Consult Pharmacy 1 EACH OTHER SCH (19:00)
[2018-01-11] MEDS ORDERED: Vancomycin Inj 2,000 MG in Sodium Chlor 0.9% Inj 500 ML IV.SIG ONE (20:00)
[2018-01-11] MEDS: Azithromycin Inj 500 MG in Sodium Chlor 0.9% Inj 250 ML IV.SIG SCH (21:12)
[2018-01-12] MEDS: Levothyroxine 100 MCG Tablet PO SCH (06:09)
[2018-01-12 07:28] LABS: Baso % (Auto) 0.2 % (0.0-2.0); Eos % (Auto) 0.3 % (0.0-4.0); Hematocrit 43.7 % (39.0-51.0); Hemoglobin 14.8 gm/dL (13.0-17.0); Lymph # (Auto) 0.2 th/mm3 (1.0-4.8); Lymph % (Auto) 1.5 % (9.0-44.0); Mean Corpuscular HGB Conc 33.9 % (32.0-36.0); Mean Corpuscular Hemoglobin 30.4 pg (27.0-34.0); Mean Corpuscular Volume 89.6 fL (80.0-100.0); Mean Platelet Volume 8.6 fL (7.0-11.0); Mono # (Auto) 0.5 th/mm3 (0.0-0.9); Mono % (Auto) 3.2 % (0.0-8.0); Neut % (Auto) 94.8 % (16.0-70.0); Platelet Count 166 th/mm3 (150-450); Red Blood Count 4.88 mil/mm3 (4.50-5.90); Red Cell Distribution Width 14.8 % (11.6-17.2); White Blood Count 16.9 th/mm3 (4.0-11.0)
[2018-01-12 07:43] LABS: Anion Gap 13 meq/L (5-15); Blood Urea Nitrogen 32 mg/dL (7-18); Carbon Dioxide 23.5 meq/L (21.0-32.0); Chloride 104 meq/L (98-107); Glomerular Filtration Rate Greater Than 89 mL/min (>89); Glucose,Random 174 mg/dL (74-106); Potassium 3.2 meq/L (3.5-5.1); Sodium 140 meq/L (136-145)
[2018-01-12] MEDS ORDERED: Vancomycin Inj 1,000 MG in Sodium Chlor 0.9% Inj 250 ML IV.SIG SCH (08:00)
[2018-01-12] MEDS: Metoprolol Tartrate 25 MG Tablet PO SCH ×2 (08:56→21:26)
[2018-01-12] MEDS: Finasteride 5 MG Tablet PO SCH (08:56)
[2018-01-12] MEDS: Lactobacillus Acidophilus/L. Spores Tablet PO SCH ×3 (08:57→18:36)
[2018-01-12] MEDS: Gabapentin 300 MG Capsule PO SCH ×2 (08:57→21:26)
[2018-01-12] MEDS ORDERED: metOLazone 5 MG Tablet PO SCH (09:00)
--- NOTE | 2018-01-12 09:47 | P.PN ---
Subjective Interval history: Follow-up for community acquired pneumonia with failed outpatient treatment, atrial fibrillation patient with a history of metastatic lung cancer. Patient is sitting in his chair. He complains of persistent abdominal discomfort. Had bowel movement. No fever or chills. Physical Exam Vital signs: Vital Signs 01/11/18 10:00 01/11/18 11:00 01/11/18 12:00 Temperature 98 F Pulse Rate 118 H 102 H 102 H Respiratory Rate 20 Blood Pressure 106/69 Pulse Oximetry 91 L 01/11/18 14:00 01/11/18 15:00 01/11/18 16:00 Temperature 98 F Pulse Rate 94 H 95 H 94 H Respiratory Rate 22 Blood Pressure 107/73 Pulse Oximetry 94 L 01/11/18 16:21 01/11/18 17:00 01/11/18 18:00 Temperature Pulse Rate 84 102 H Respiratory Rate 20 Blood Pressure Pulse Oximetry 01/11/18 19:00 01/11/18 20:00 01/11/18 21:00 Temperature 97.8 F Pulse Rate 104 H 100 H 98 H Respiratory Rate 16 Blood Pressure 110/63 Pulse Oximetry 93 L 01/11/18 22:00 01/11/18 23:00 01/12/18 00:00 Temperature Pulse Rate 96 H 97 H 90 Respiratory Rate 16 Blood Pressure 104/65 Pulse Oximetry 96 01/12/18 01:00 01/12/18 02:00 01/12/18 03:00 Temperature Pulse Rate 90 92 H 102 H Respiratory Rate Blood Pressure Pulse Oximetry 01/12/18 03:43 01/12/18 04:00 01/12/18 05:00 Temperature Pulse Rate 82 104 H 104 H Respiratory Rate 16 Blood Pressure 103/65 Pulse Oximetry 95 01/12/18 06:00 01/12/18 07:00 Temperature Pulse Rate 96 H 106 H Respiratory Rate Blood Pressure Pulse Oximetry Intake & Output 01/11/18 01/12/18 01/12/18 18:59 06:59 18:59 Intake Total 580 / 580 1110 / 1110 Output Total 800 / 800 Balance 580 / 580 310 / 310 Weight 96.3 kg Intake: IV 100 / 100 870 / 870 Azithromycin Inj 500 MG In NS 250 / 250 Inj 250 ML @ 250 mls/hr IV.SIG Q24H [facility] Rx#:[id number] Maxipime Inj 2,000 MG In NS Inj 100 / 100 100 / 100 100 ML @ 200 mls/hr IV.SIG Q8H [facility] Rx#:[id number] Vancomycin Inj 2,000 MG In NS 520 / 520 Inj 500 ML @ 250 mls/hr IV.SIG ONCE ONE Rx#:[id number] Oral 480 / 480 240 / 240 Output: Urine 800 / 800 Other: # Voids 3 Date of Last Bowel Movement 01/11/18 01/12/18 # Bowel Movements 2 1 Narrative: GENERAL: Alert, oriented 3, NAD. SKIN: Warm and dry. HEAD: Normocephalic. EYES: No scleral icterus. No injection or drainage. NECK: Supple, trachea midline. No JVD or lymphadenopathy. CARDIOVASCULAR: Regular rate and rhythm without murmurs, gallops, or rubs. RESPIRATORY: Breath sounds equal bilaterally. No accessory muscle use. GASTROINTESTINAL: Abdomen soft, non-tender, nondistended. MUSCULOSKELETAL: No cyanosis, or edema. BACK: Nontender without obvious deformity. No CVA tenderness. Results - Labs CBC & Chem 7: 01/12/18 06:20 01/12/18 06:20 Laboratory Results - last 24 hr 01/11/18 01/12/18 01/12/18 15:50 06:20 06:20 WBC 16.9 H RBC 4.88 Hgb 14.8 D Hct 43.7 MCV 89.6 MCH 30.4 MCHC 33.9 RDW 14.8 Plt Count 166 MPV 8.6 Neut % (Auto) 94.8 H Lymph % (Auto) 1.5 L [place] % (Auto) 3.2 Eos % (Auto) 0.3 Baso % (Auto) 0.2 Neut # (Auto) 16.0 H Lymph # (Auto) 0.2 L [place] # (Auto) 0.5 Eos # (Auto) 0.0 Baso # (Auto) 0.0 WBC Differential . Differential Comment Auto diff final Sodium 140 Potassium 3.2 L D Chloride 104 Carbon Dioxide 23.5 Anion Gap 13 BUN 32 H Creatinine 0.59 L Estimated GFR Greater than 89 Random Glucose 174 H Calcium 8.0 L Urine Color Yellow Urine Clarity Clear Urine pH 7.0 Ur Specific [place] 1.024 Urine Protein 30 H Urine Glucose (UA) Negative Urine Ketones Negative Urine Occult Blood Negative Urine Nitrate Negative Urine Bilirubin Negative Urine Urobilinogen Less than 2 Ur Leukocyte Esterase Negative Urine WBC 5 Ur Squamous Epith Cells <1 Urine Mucus Few H Micro UA Comment Culture not ind Urine Culture Comments Culture not ind Microbiology 01/10/18 15:46 Blood - Peripheral Aerobic Blood Culture - Preliminary No growth in 1 day 01/10/18 15:46 Blood - Peripheral Anaerobic Blood Culture - Preliminary No growth in 1 day 01/10/18 15:46 Blood - Peripheral Aerobic Blood Culture - Preliminary No growth in 1 day 01/10/18 15:46 Blood - Peripheral Anaerobic Blood Culture - Preliminary No growth in 1 day - Procedures None Assessment and Plan - Assessment (1) Failure of outpatient treatment Code(s): Z78.9 - Other specified health status Status: Acute - Plan 77-year-old male with lung cancer admitted secondary to pneumonia with sepsis, with outpatient treatment failure on Levaquin. Sepsis (Heart 115, RR 20, WBC 23.4K, pneumonia) Community-acquired pneumonia Outpatient treatment failure Pneumonia with lung cancer Immunocompromise in presence of cancer Treat with cefepime and azithromycin. Infectious disease started vancomycin as well. Probiotics Oxygen support as needed Monitor for improvement infectious signs including leukocytosis, tachycardia, and symptoms Infectious disease is following. WBC count is improved from 23.4K to 16.9 K Atrial fibrillation with RVR On home medication Amiodarone 100mg MWF Will start patient on Metoprolol 25mg BID to control heart rate. Congestive heart failure Will continue Lasix at a reduced dose 20mg BID. Potassium is 3.2 today. Will give him one time dose and then daily low dose KCL Lung cancer Brain metastasis Continue monitoring and treatments as an outpatient with oncology and radiation oncology Discussed with patient's - will consult Palliative care. Hypothyroidism Continue levothyroxine 100 mcg daily. DNR. Apixaban.
--- NOTE | 2018-01-12 11:11 | P.CONPAL ---
Consult Service: Palliative Care Requesting Physician: Ken Quijano Reason for Consult: a. To assist with evaluation and management of symptoms including: Dyspnea, pain, decreased appetite b. To assist medical decision maker(s) with: better understanding of current medical conditions; weighing benefits/burdens of medical treatment options; making medical treatment decisions. Primary Care Provider: Pawel John History of Present Illness History of Present Illness: This 77-year-old patient initially presented to the hospital for pneumonia on December 31, was discharged with Levaquin. Patient returned again to the hospital with reports of decreased appetite, increased generalized weakness onset 1 day ago. * Significant findings of leukocytosis WBC 23. BUN 50, creatinine 1.14. GFR 63. LFTs unremarkable. TSH 3.86, possible hypothyroid. Troponin 0 0.04. CXR with increasing right lower lobe consolidation compared to prior exam December 31. He was admitted for further evaluation and management. * Infectious disease consulted to follow non-resolving pneumonia--patient started on Vanco, continued on cefepime. Following cultures. If goals aggressive may consider bronchoscopy. In agreement with oncology consultation as well as palliative care consultation. * Oncology consulted. Palliative care consulted to assist with clarification of goals of treatment. Patient seen in room up in recliner, at bedside. He is awake and oriented though forgetful at times. He does fall asleep often during exam and consultation discussion. answers many of the questions as he dozes off. Met with , patient at length at bedside. Patient needed assistance with repositioning in recliner chair, notified PASSENGER ELEVATOR OPERATOR who provided assistance. Not currently short of breath, not currently experiencing significant pain. Endorses significant shortness of breath with any exertion. Endorses pain in a "bandlike" location around his lungs/ribs extending to his back which worsens with shortness of breath and/or cough. Endorses infrequent nonproductive cough. No nausea or vomiting reported. Very poor appetite since being on Levaquin. Slightly deteriorating and poor appetite in the month preceding. Estimates about 25 pounds weight loss in 1 month's time. Some generalized weakness over the past few weeks. * * Of note he has known history of lung cancer with metastasis to the brain, and was planned to undergo treatment (? XRT) . He was due for treatment day of presentation but he felt too weak. During that admission he presented 12/31-- sent there by radiation oncologist. Plan for brain radiation over the next few weeks. He was known to have increased risk for pneumonia. Symptoms were shortness of breath, tachycardia, no findings of CHF or COPD exacerbation. Atrial fib present but controlled no RVR. He was planned for overnight hydration, monitoring; he was discharged home 01/01-appearing near his baseline, on oral Levaquin. * Oncology history per EMR 12/23/17: Per further review of records secondary malignant neoplasm of the brain was diagnosed 12/23/17, stage IV. He apparently initially presented with nausea and flank pain, GI evaluation found large infiltrating mass involving ascending colon. Further workup noted a large right -sided lung mass with some brain metastasis with possible metastatic disease to liver and bilateral adrenal glands. He was referred by Dr. Alejo to Dr. Butler here for brain radiation. He was sent for molecular genetics to determine appropriate chemo, however planned to start radiation for brain metastasis before starting the chemotherapy. Patient discussed and elected to proceed with radio surgery therapy with radiation oncology. Planned for follow- up for simulation treatment planning. Function/Cognitive Trajectory: Lives at home with , independent with ADLs. No cognitive deficits. Review of Systems Constitutional: Reports anorexia, Reports fatigue, Reports lack of energy, Reports weakness, Reports weight loss (25# 1 month), Denies chills, Denies daytime sleepiness, Denies fever(s), Denies headache(s) Ears, Nose, Mouth, and Throat: Reports abnormal hearing, Denies difficulty swallowing, Denies dizziness, Denies mouth pain, Denies nasal discharge, Denies pain with swallowing Cardiovascular: Reports irregular heart rhythm, Reports leg swelling, Reports shortness of breath, Reports shortness of breath with activity, Reports shortness of breath when lying down, Denies chest pain (Hard of hearing), Denies lightheadedness, Denies shortness of breath causing sudden awakening Respiratory: Reports cough (Intermittent nonproductive), Reports pain with cough , Reports shortness of breath, Reports shortness of breath with activity Gastrointestinal: Reports constant urge to pass stool (+ Diarrhea for the past several weeks following constipation episode), Reports incontinent of stools, Reports loose stools, Denies abdominal pain, Denies black, tarry stools, Denies bright, red blood in stools, Denies constipation, Denies difficulty swallowing, Denies nausea, Denies pain with swallowing, Denies vomiting Genitourinary: Denies blood in urine (Occasionally if he cannot make it), Denies decreased urination, Denies difficulty urinating, Denies painful urination Musculoskeletal: Reports muscle weakness (Generalized), Denies abnormal walking , Denies back pain, Denies body aches, Denies joint pain Neurologic: Reports weakness (Generalized), Denies abnormal speech, Denies confusion, Denies dizziness, Denies headache(s), Denies lack of coordination, Denies loss of vision, Denies memory loss Psychiatric: Reports change in appetite, Denies anxiety, Denies behavioral changes, Denies confusion, Denies depression Endocrine: Denies increased hunger, Denies increased urination Hematologic/Lymphatic: Denies easy bleeding PMFSH - History History Provided By: Patient, Family Member - Medical History Medical History: Medical History (Last Updated 01/11/18 @ 08:04 by Miriam Lucero RN) Colon cancer (Acute) Lung cancer metastatic to brain (Acute) Hypothyroid (Acute) GERD (gastroesophageal reflux disease) (Acute) HTN (hypertension) (Acute) Serum lipids high (Acute) COPD (chronic obstructive pulmonary disease) (Acute) CHF (congestive heart failure) (Acute) CAD (coronary artery disease) (Acute) Osteoarthritis (Acute) Anemia (Acute) Atrial fibrillation Impaction of colon Lung cancer - Surgical History Surgical History: Surgical History (Last Updated 01/11/18 @ 08:03 by Miriam Lucero RN) H/O hernia repair (Acute) Hx of cholecystectomy - Family History Family History: Family History (Last Updated 01/10/18 @ 18:55 by Ayaz Jiang MD) Mother Coronary artery disease Father Coronary artery disease - Tobacco History Second Hand Smoke Exposure: No Tobacco Use In Past 30 Days: No Smoking Status: Former smoker - Alcohol History How Often Do You Have a Drink Containing Alcohol: Never - Substance Use History Substance History: No History of Abuse - Substance Use Type Alcohol Status: Sustained Remission Route Used: By Mouth Comment: Patient quit drinking 4 years ago. - Travel History Recent Travel in the [facility] Within the Last 8 Weeks: No Recent Travel Out of the Country Within the Last 8 Weeks: No - Immunization History Tetanus Immunization: <5 Years Hx Influenza Vaccine This Season: Yes Medications and Allergies Active Medications: Active Medications Hydrocodone Bitart/Acetaminophen ([place] 5/325) 1 tab PO BID PRN PRN Reason: PAIN 1-10 Last Admin: 01/12/18 08:57 Dose: 1 tab Al Hydroxide/Mg Hydroxide (Milk Of Magnthomas Liq) 30 ml PO Q12H PRN PRN Reason: Mild Constipation Albuterol (Albuterol Neb (Prn)) 2.5 mg NEB Q4HR NEB PRN PRN Reason: WHEEZING Amiodarone HCl (Cordarone) 100 mg PO MOWEFR PENDING SALE TO [facility] Apixaban (Eliquis) 5 mg PO BID PENDING SALE TO [facility] Last Admin: 01/12/18 08:57 Dose: 5 mg Atorvastatin Calcium (Lipitor) 40 mg PO DAILY PENDING SALE TO [facility] Last Admin: 01/12/18 08:58 Dose: 40 mg Dexamethasone (Decadron) 4 mg PO Q12H PENDING SALE TO [facility] Last Admin: 01/11/18 22:56 Dose: 4 mg Diazepam (Valium) 5 mg PO BID PRN PRN Reason: Anxiety Enoxaparin Sodium (Lovenox Inj) 40 mg SQ Q24H PENDING SALE TO [facility] Last Admin: 01/11/18 18:34 Dose: 40 mg Finasteride (Proscar) 5 mg PO DAILY PENDING SALE TO [facility] Last Admin: 01/12/18 08:56 Dose: 5 mg Gabapentin (Neurontin) 900 mg PO BID PENDING SALE TO [facility] Last Admin: 01/12/18 08:57 Dose: 900 mg Cefepime HCl 2,000 mg/ Sodium (Chloride) 100 mls @ 200 mls/hr IV.SIG Q8H PENDING SALE TO [facility] Last Admin: 01/12/18 02:04 Dose: 200 mls/hr Azithromycin 500 mg/ Sodium (Chloride) 250 mls @ 250 mls/hr IV.SIG Q24H PENDING SALE TO [facility] Last Infusion: 01/11/18 22:12 Dose: Infused Pharmacy Profile Note (Vancomycin Consult Pharmacy) 0 mls @ 0 mls/hr OTHER UNSCH PENDING SALE TO [facility] Vancomycin HCl 1,500 mg/ (Sodium Chloride) 515 mls @ 250 mls/hr IV.SIG Q12H PENDING SALE TO [facility] Lactobacillus Acidophilus (Lactinex) 1 tab PO TID PENDING SALE TO [facility] Last Admin: 01/12/18 08:57 Dose: 1 tab Levothyroxine Sodium (Synthroid) 100 mcg PO DAILY@0600 PENDING SALE TO [facility] Last Admin: 01/12/18 06:09 Dose: 100 mcg Metoclopramide HCl (Reglan Inj) 5 mg IV.PUSH Q6HR PRN; Protocol PRN Reason: NAUSEA OR VOMITING Metoprolol Tartrate (Lopressor) 25 mg PO BID ZACH Last Admin: 01/12/18 08:56 Dose: 25 mg Miscellaneous Information ([facility] Ordered Lab Info) 0 each OTHER ONCE ONE Stop: 01/14/18 05:46 Morphine Sulfate (Morphine Inj) 4 mg IV.PUSH Q4H PRN PRN Reason: BREAKTHROUGH PAIN Sodium Chloride (Ns Flush) 2 ml IV.FLUSH PRN PRN PRN Reason: FLUSH AFTER USING IV ACCESS Last Admin: 01/12/18 08:58 Dose: 2 ml Allergies Allergy/AdvReac Type Severity Reaction Status Date / Time No Known Allergies Allergy Unverified 01/10/18 19:02 Home Medications Medication Instructions Recorded Confirmed Type Lactobacillus acidoph-L.bulgar 1 tab PO TID 01/10/18 01/10/18 History [Floranex] amiodarone 100 mg PO MOWEFR 01/10/18 01/10/18 History apixaban [Eliquis] 5 mg PO BID 01/10/18 01/10/18 History atorvastatin [Lipitor] 40 mg PO DAILY 01/10/18 01/10/18 History dexamethasone [Decadron] 4 mg PO Q12H 01/10/18 01/10/18 History diazepam 5 mg PO BID PRN 01/10/18 01/10/18 History finasteride 5 mg PO DAILY 01/10/18 01/10/18 History furosemide [Lasix] 40 mg PO BID 01/10/18 01/10/18 History gabapentin 900 mg PO BID 01/10/18 01/10/18 History hydrocodone-acetaminophen [Pitman] 1 tab PO BID PRN 01/10/18 01/10/18 History hydrocodone-homatropine [Hydromet] 10 ml PO Q6HR PRN 01/10/18 01/10/18 History levofloxacin 750 mg PO DAILY 01/10/18 01/10/18 History levothyroxine 100 mcg PO DAILY 01/10/18 01/10/18 History linaclotide [Linzess] 72 mcg PO DIRECTED PRN 01/10/18 01/10/18 History losartan 50 mg PO DAILY 01/10/18 01/10/18 History megestrol 800 mg PO DAILY 01/10/18 01/10/18 History metolazone 5 mg PO MOWEFR 01/10/18 01/10/18 History omeprazole 40 mg PO DAILY 01/10/18 01/10/18 History ondansetron [Zofran ODT] 4 mg PO Q6HR PRN 01/10/18 01/10/18 History paroxetine HCl [Paxil] 20 mg PO DAILY 01/10/18 01/10/18 History potassium chloride 20 meq PO DAILY 01/10/18 01/10/18 History Advance Directives Living Will: No Health Care Surrogate Name and Number: Janell Eastman spouse [phone] Power of Electron Gun Assembler Name: Janell Eastman Power of Electron Gun Assembler Power of Electron Gun Assembler Relationship to Patient: Spouse Physical Exam Vital Signs: Vital Signs - 24 hr 01/11/18 11:00 01/11/18 12:00 01/11/18 14:00 Temperature 98 F Pulse Rate 102 H 102 H 94 H Respiratory Rate 20 Blood Pressure 106/69 Pulse Oximetry 91 L 01/11/18 15:00 01/11/18 16:00 01/11/18 16:21 Temperature 98 F Pulse Rate 95 H 94 H Respiratory Rate 22 20 Blood Pressure 107/73 Pulse Oximetry 94 L 01/11/18 17:00 01/11/18 18:00 01/11/18 19:00 Temperature Pulse Rate 84 102 H 104 H Respiratory Rate Blood Pressure Pulse Oximetry 01/11/18 20:00 01/11/18 21:00 01/11/18 22:00 Temperature 97.8 F Pulse Rate 100 H 98 H 96 H Respiratory Rate 16 Blood Pressure 110/63 Pulse Oximetry 93 L 01/11/18 23:00 01/12/18 00:00 01/12/18 01:00 Temperature Pulse Rate 97 H 90 90 Respiratory Rate 16 Blood Pressure 104/65 Pulse Oximetry 96 01/12/18 02:00 01/12/18 03:00 01/12/18 03:43 Temperature Pulse Rate 92 H 102 H 82 Respiratory Rate 16 Blood Pressure 103/65 Pulse Oximetry 95 01/12/18 04:00 01/12/18 05:00 01/12/18 06:00 Temperature Pulse Rate 104 H 104 H 96 H Respiratory Rate Blood Pressure Pulse Oximetry 01/12/18 07:00 01/12/18 08:00 01/12/18 09:00 Temperature 97.8 F Pulse Rate 106 H 95 H 106 H Respiratory Rate 18 Blood Pressure 103/67 Pulse Oximetry 92 L 01/12/18 10:00 Temperature Pulse Rate 122 H Respiratory Rate Blood Pressure Pulse Oximetry I&O: Intake & Output 01/10/18 01/11/18 01/12/18 01/13/18 06:59 06:59 06:59 06:59 Intake Total 1079.5 / 1079.5 1690 / 1690 250 / 250 Output Total 800 / 800 Balance 1079.5 / 1079.5 890 / 890 250 / 250 Weight 95.4 kg 96.3 kg Physical Exam: CONSTITUTIONAL/GENERAL: This is an adequately nourished patient, lethargic TUBES/LINES/DRAINS: PIC UE, NC O2 SKIN: No jaundice, rashes, or lesions. Multiple areas Ecchymoses on upper extremities. few small skin tears. dressing to bilateral arms clean dry. Skin warm/dry. reported excoriation to rectal/buttock areas, did not visualize HEAD: Atraumatic. Normocephalic. EYES: Pupils equal and round and reactive. Extraocular motions intact. No scleral icterus. No injection or drainage. Fundi not examined. ENT: KALSKAG. Nose without bleeding or purulent drainage. Throat without visible erythema, exudates, masses, or lesions.+ lesion rt tongue 1/2 cm/redness NECK: Trachea midline. Supple, nontender. No palpable thyroid enlargement or nodularity. CARDIOVASCULAR: irregular rate/rhythm. no murmur. No JVD. Peripheral pulses symmetric. RESPIRATORY/CHEST: Symmetric, unlabored respirations. clear, diminished. On NC O2 Breath sounds equal bilaterally. GASTROINTESTINAL: Abdomen soft, round, non-tender, nondistended. No hepato- splenomegaly, or palpable masses. No guarding. Bowel sounds present. GENITOURINARY: Without palpable bladder distension. adult brief in place. MUSCULOSKELETAL: Extremities without clubbing, cyanosis, or edema. No joint tenderness or effusion noted. No calf tenderness. LYMPHATICS: No palpable cervical or supraclavicular adenopathy. NEUROLOGICAL: Awake and alert oriented x3 but forgetful at times, falls asleep at times. Very [place]. Follows commands. Cognitively sharp. Moves all extremities. PSYCHIATRIC: No obvious anxiety/depression. no apparent hallucinations or other psychotic thought process. Diagnostic Tests Laboratory: Laboratory Results - last 72 hr 01/10/18 01/10/18 01/10/18 15:46 15:46 15:46 WBC 23.4 H RBC 5.73 Hgb 17.5 H Hct 51.6 H MCV 90.1 MCH 30.6 MCHC 33.9 RDW 15.1 Plt Count 228 MPV 8.5 Prelim Diff (Auto) Slide review pending Neut % (Auto) 91.6 H Lymph % (Auto) 1.9 L Blair % (Auto) 4.9 Eos % (Auto) 1.3 Baso % (Auto) 0.3 Neut # (Auto) 21.4 H Lymph # (Auto) 0.4 L Blair # (Auto) 1.1 H Eos # (Auto) 0.3 Baso # (Auto) 0.1 WBC Differential . Diff Scan Auto diff confirmed Differential Comment . Platelet Estimate Normal Platelet Morphology Normal RBC Morphology Normal Sodium 137 Potassium 4.1 Chloride 98 Carbon Dioxide 25.2 Anion Gap 14 BUN 50 H Creatinine 1.14 Estimated GFR 63 L POC Glucose Random Glucose 245 H Lactic Acid Calcium 8.7 Total Bilirubin 1.4 H AST 31 ALT 29 Alkaline Phosphatase 137 H Troponin I 0.04 B-Natriuretic Peptide 56 Total Protein 6.8 Albumin 3.4 TSH 3.860 H Urine Color Urine Clarity Urine pH Ur Specific [place] Urine Protein Urine Glucose (UA) Urine Ketones Urine Occult Blood Urine Nitrate Urine Bilirubin Urine Urobilinogen Ur Leukocyte Esterase Urine WBC Ur Squamous Epith Cells Urine Mucus Micro UA Comment Urine Culture Comments 01/10/18 01/10/18 01/10/18 15:46 19:23 22:50 WBC RBC Hgb Hct MCV MCH MCHC RDW Plt Count MPV Prelim Diff (Auto) Neut % (Auto) Lymph % (Auto) Blair % (Auto) Eos % (Auto) Baso % (Auto) Neut # (Auto) Lymph # (Auto) Blair # (Auto) Eos # (Auto) Baso # (Auto) WBC Differential Diff Scan Differential Comment Platelet Estimate Platelet Morphology RBC Morphology Sodium Potassium Chloride Carbon Dioxide Anion Gap BUN Creatinine Estimated GFR POC Glucose 244 H Random Glucose Lactic Acid 3.9 H 3.5 H Calcium Total Bilirubin AST ALT Alkaline Phosphatase Troponin I B-Natriuretic Peptide Total Protein Albumin TSH Urine Color Urine Clarity Urine pH Ur Specific [place] Urine Protein Urine Glucose (UA) Urine Ketones Urine Occult Blood Urine Nitrate Urine Bilirubin Urine Urobilinogen Ur Leukocyte Esterase Urine WBC Ur Squamous Epith Cells Urine Mucus Micro UA Comment Urine Culture Comments 01/11/18 01/12/18 01/12/18 15:50 06:20 06:20 WBC 16.9 H RBC 4.88 Hgb 14.8 D Hct 43.7 MCV 89.6 MCH 30.4 MCHC 33.9 RDW 14.8 Plt Count 166 MPV 8.6 Prelim Diff (Auto) Neut % (Auto) 94.8 H Lymph % (Auto) 1.5 L Blair % (Auto) 3.2 Eos % (Auto) 0.3 Baso % (Auto) 0.2 Neut # (Auto) 16.0 H Lymph # (Auto) 0.2 L Blair # (Auto) 0.5 Eos # (Auto) 0.0 Baso # (Auto) 0.0 WBC Differential . Diff Scan Differential Comment Auto diff final Platelet Estimate Platelet Morphology RBC Morphology Sodium 140 Potassium 3.2 L D Chloride 104 Carbon Dioxide 23.5 Anion Gap 13 BUN 32 H Creatinine 0.59 L Estimated GFR Greater than 89 POC Glucose Random Glucose 174 H Lactic Acid Calcium 8.0 L Total Bilirubin AST ALT Alkaline Phosphatase Troponin I B-Natriuretic Peptide Total Protein Albumin TSH Urine Color Yellow Urine Clarity Clear Urine pH 7.0 Ur Specific [place] 1.024 Urine Protein 30 H Urine Glucose (UA) Negative Urine Ketones Negative Urine Occult Blood Negative Urine Nitrate Negative Urine Bilirubin Negative Urine Urobilinogen Less than 2 Ur Leukocyte Esterase Negative Urine WBC 5 Ur Squamous Epith Cells <1 Urine Mucus Few H Micro UA Comment Culture not ind Urine Culture Comments Culture not ind Result Diagrams: 01/12/18 06:20 01/12/18 06:20 Microbiology: Microbiology 01/10/18 15:46 Aerobic Blood Culture - Preliminary Blood - Peripheral No growth in 1 day Anaerobic Blood Culture - Preliminary No growth in 1 day 01/10/18 15:46 Aerobic Blood Culture - Preliminary Blood - Peripheral No growth in 1 day Anaerobic Blood Culture - Preliminary No growth in 1 day Imaging: ITS Impressions Chest X-Ray 01/10/18 15:13 CONCLUSION: Slight increase in right lung consolidation since December 31. Differential diagnosis includes pneumonia and aspiration. Patient/Family Conference Present at Family Conference: , patient Family Conference Time: 35 Family Conference Location: Bedside Issues Discussed: Met with , patient at bedside discussion included the following: * Palliative care role, purpose, approach * Additional medical, psychosocial, and spiritual history * Patients general health, functional status, and cognitive changes in the months leading up to the current hospitalization * Patient/family understanding of the current medical problems * Patient/family understanding of prognosis; review of recent cancer diagnosis and plan going forward; review that while working towards goal of treating cancer patient has multiple other medical issues and risks that will continue to cause complication, potential setbacks * Patients goals of care as best understood from advance directives and/or conversations and/or values * Current medical treatment options and benefits/burdens of those options * Advanced directive/legal decision makers reviewed * Questions answered to the best of my ability * Palliative care contact information provided Met with patient and at length at bedside. Patient does fall asleep from time to time participates more. They appear to have reasonable understanding of hospital course. Upon further exploration of oncology history indicates that he was going to be started with immune therapy treatment she indicates it was not discussed if this was curative or palliative in nature. She informs that the oncologist was very optimistic that the patient could do quite well with treatment. Review of advanced directives patient and affirms DNR status, otherwise aggressive goals to continue available treatments to work towards radiation, chemotherapy for cancer. They are open to ongoing conversations as clinical course evolves. Assessment and Plan - Disease Oriented Problem List (1) RLL pneumonia (2) Atrial fibrillation with RVR (3) Sepsis (4) Failure of outpatient treatment (5) Lung cancer metastatic to brain (6) H/O hernia repair (7) Hypothyroid (8) GERD (gastroesophageal reflux disease) (9) HTN (hypertension) (10) Serum lipids high (11) COPD (chronic obstructive pulmonary disease) (12) CHF (congestive heart failure) (13) CAD (coronary artery disease) (14) Osteoarthritis (15) Anemia - Symptom Scale (1) Dyspnea 0-10 Scale: 10 (2) Pain 0-10 Scale: 10 Pertinent Non-Medical Issues: Psychosocial: Originally from [place]. Retired many years ago. Formerly worked in [employer]. He and his travel back and forth from [place] in [place] "snowbirds ". The recently they are staying here more than there. They have 2 adult children, a few grandchildren in [place]. Spiritual: Buddhist ramiro, does not desire preschool paraprofessional visits at this time. Legal: Patient is lethargic at times of appears to have insight and ability to make his own medical decisions. His is designated as healthcare "proxy " as per [place] directive documentation. Son Surya is named as a secondary, should patient become incapacitated. Ethical issues impacting care: No ethical issues identified. Important Contacts: Janell Eastman [phone] , Prognosis: This patient was admitted for shortness of breath, following failed outpatient treatment with oral Levaquin for pneumonia 12/31. He is currently receiving IV antibiotics, ID following. He has underlying diagnosis of lung cancer with metastasis to brain, as well as adrenal lymph nodes. Not clear that he was offered curative treatment for this though he was planned to start on immune therapy, as well as radiation to the brain last week which she was unable to do due to shortness of breath and presentation here. High risk for ongoing complications and setbacks related to chronic medical conditions, advanced age and underlying malignancy. May be hospice appropriate if did not desire further aggressive interventions. Code Status: No Code DNR Plan: Legal decision maker: Patient is lethargic though appears able to make his own medical decisions. Should he become incapacitated: His is designated as proxy her [place] advanced directives. Bo London is a secondary. Goals: Goals right now aggressive short of resuscitation. Patient and wish to maximize available treatments with the ultimate goal of patient proceeding with chemo, radiation therapy for malignancy. They are open to ongoing conversations as clinical course evolves. CODE STATUS: DNR SYMPTOMS: --Dyspnea-patient with persistent dyspnea over the past couple of months, worsened over the past 1-2 weeks. Severe dyspnea on exertion, minimal dyspnea at rest. Accompanied by infrequent nonproductive cough a few weeks ago had more significant cough but this has subsided. Imaging this admission consistent with increasing lower lobe consolidation, pneumonia. On IV antibiotics. Underlying lung malignancy with metastasis high risk for ongoing --Pain-activity and dyspnea. Endorses pain can go as high as 10 though when at rest may be much less closer to 01. He also endorses pain to buttocks immediately around rectal area secondary to skin excoriation secondary to ongoing diarrhea. He reports diarrhea started 4-5 weeks ago following correction for impaction/constipation and receiving multiple bowel agents. He is now been on antibiotic courses, and bowel motility agents have been discontinued however he continues to have some loose stool which is constantly irritating his skin. Wound consultation pending. Will need to look into some type of barrier dressing if possible to allow the skin to heal. Has PRN morphine available. In the past patient general pain has been well controlled by ibuprofen, consider ibuprofen 400 mg every 6 hours as needed. If this ineffective, consider PO low dose opiate such as Lortab to decrease lethargy/ minimize respiratory side effects. --Poor appetite-patient endorses significantly diminished appetite since starting Levaquin therapy just does not feel hungry. No GI complaints specifically such as nausea and vomiting. Just does not feel hungry. He has had general decrease in appetite for about 1 month and notes about 25 pound weight loss in about 1 month time. This is likely secondary to malignancy . May benefit from appetite stimulant such as Megace. Palliative care will continue to follow during hospital course as condition evolves, to assist patient/decision-maker with understanding of medical conditions, weighing benefits/burdens of treatment options, for clarification of goals of treatment. Additionally will assist with any symptoms of palliative concern Time Spent Total Floor Time (mins): 70 (Chart review, PE, discussion with patient and family) Appreciation Thank you for the opportunity to participate in the care of Ezio Eastman. Attestation Attestation: To help prompt me to consider important information that might be impacting today's encounter and assessment, information from prior notes written by myself or my colleagues may have been "brought forward" into today's note. My signature on this note, however, is an attestation that I personally performed the exam, history, and/or decision-making noted today, and, unless otherwise indicated, the interactions with patient, family, and staff as well as the review of records all occurred today. I also attest that the listed assessment and stated plan reflect my best clinical judgment today based on the combination of historical information, prior notes, and today's exam/ interactions. When time spent is documented, it refers only to time spent today by the signer, or if indicated, combined time spent today by collaborating physician/nurse practitioner.
--- NOTE | 2018-01-12 11:25 | MB ---
cc: Telly Valencia MD DATE: 01/12/2018 ATTENDING PHYSICIAN: Dr. Jiang. REASON FOR CONSULTATION: Oncology consult to render opinion regarding patient with metastatic lung cancer. HISTORY OF PRESENT ILLNESS: The patient is a pleasant 77-year-old male admitted to the hospital complaining of increased weakness, shortness of breath and some subjective chills which has been going on for several days. The patient is hard of hearing and is a poor historian. No family member at the bedside at this point. 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 He was under the care of Dr. Alejo and Dr. Butler. He states that he had 1 radiation treatment last week, but did not tolerate it well. He is supposed to have a total of 5 radiation treatments. He was also supposed to start immunotherapy this week. He said he is getting weaker and was brought into the hospital. He was not able to walk for about a week due to weakness. Denies any fever or chills. He has lost about 25 pounds. He denies any nausea or vomiting. He has some upper abdominal discomfort due to the cough. He has been having a nonproductive cough. Denies any hemoptysis. He has any headache. Denies any visual changes. Denies any focal numbness or weakness. PAST MEDICAL HISTORY: 1. 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 2. Anemia. 3. Chronic atrial fibrillation. 4. Coronary artery disease. 5. Congestive heart failure. 6. Chronic obstructive pulmonary disease. 7. Gastroesophageal reflux disease. 8. Hypertension. 9. Hypothyroidism. 10. Osteoarthritis. 11. Hyperlipidemia. 12. Questionable bowel obstruction. PAST SURGICAL HISTORY: Hernia repair, cholecystectomy, ERCP. FAMILY HISTORY: Positive for coronary artery disease. SOCIAL HISTORY: He has quit tobacco. Denies any alcohol use. ALLERGIES: NO KNOWN DRUG ALLERGIES. CURRENT MEDICATIONS: 1. Amiodarone. 2. Eliquis. 3. Lipitor. 4. Azithromycin. 5. Cefepime. 6. Decadron. 7. Valium. 8. Lovenox. 9. Proscar. 10. Neurontin. 11. Lactinex. 12. Synthroid. 13. Metoprolol. 14. Vancomycin. REVIEW OF SYSTEMS: CONSTITUTIONAL: As above. EYES: Negative. ENT: Negative. CARDIOVASCULAR: Denies chest pressure or palpitation. RESPIRATORY: As above. GASTROINTESTINAL: He denies nausea, vomiting, diarrhea or abdominal pain. GENITOURINARY: Denies any dysuria, hematuria. MUSCULOSKELETAL: As above. ENDOCRINE: Negative. DERMATOLOGY: Negative. HEMATOLOGY: Negative. PSYCHIATRIC: Negative. NEUROLOGIC: As above. PHYSICAL EXAMINATION: VITAL SIGNS: Temperature 97.8, blood pressure 103/67. GENERAL: He is alert, oriented x3, hard of hearing and he looks weak. HEENT: Atraumatic, normocephalic. Pupils are equal, round, reactive to light. Extraocular muscles intact. No scleral icterus. Oropharynx: Dry mucosa. No lesion, no thrush, no mucositis. NECK: No thyromegaly. No palpable mass. LYMPHATIC: No palpable cervical, clavicular, axillary mm. CARDIOVASCULAR: Irregular S1, S2. LUNGS: Decreased breath sounds at the lung bases. No significant wheezes. ABDOMEN: Soft, nontender. Cannot palpate liver or spleen. EXTREMITY EXAM: No cyanosis or clubbing. He has 1+ lower extremity edema. No calf tenderness. SKIN: No rash or petechiae. NEUROLOGIC EXAM: Nonfocal. He has generalized weakness. LABORATORY DATA: WBC 16.9, hemoglobin 14.8, platelet count 166. Creatinine 0.5. ASSESSMENT: 1. Non-small cell lung cancer with brain metastasis. He was recently diagnosed. He is currently under the care of Dr. Alejo. We do not have his record at this point. The patient also has been seeing Dr. Butler for palliative radiation to the brain. The patient states that he only had one radiation treatment so far. I will consult Dr. Butler to continue radiation. The patient is also supposed to start immunotherapy this week. I told him he can follow up with Dr. Alejo after discharge to start the immunotherapy. His CT scan in December showed right hilar and mediastinal adenopathy. He also have bilateral adrenal gland metastasis. 2. Generalized weakness and anorexia due to the metastatic cancer. 3. Shortness of breath, likely due to underlying lung cancer. A chest x-ray showed increased consolidation in the right lung compared to 12/31/2017. He could possibly have superimposed pneumonia also. He was started on antibiotic. 4. History of bowel obstruction versus ileus. He has no symptoms at this time. 5. Coronary artery disease with congestive heart failure. He has no new symptoms. 6. Chronic obstructive pulmonary disease. 7. Hyperlipidemia. 8. Hypertension. 9. Hypothyroidism. PLAN: 1. Consult Dr. Butler to continue palliative brain radiation. 2. The patient can followup with Dr. Alejo after discharge to consider immunotherapy. Given his poor performance status and weakened state, he is not a candidate for palliative chemotherapy. 3. I will try to get records from Dr. Alejo's office. Thank you, Dr. Jiang, for asking me to see this patient. MD SHIN Vargas/TIFFANIE , 10:55 AM , 11:23 AM CORNELIO
--- NOTE | 2018-01-12 12:25 | P.PNID ---
Subjective Remarks: is a 77 y/o CM with medical history significant for lung cancer with metastasis to the brain. Patient reports he sees as outpatient and has not been initiated on chemotherapy yet with plans to start next week. Patient also reports history of bowel obstruction and ? ileus. He was on a bowel regimen which lead to abrasion of his buttock cheeks and has been undergoing wound care for the same. He has been treated as outpatient for almost 10 plus days of oral levaquin with no response. He and tell me he was told he needs radiation treatment to shrink the tumor that is causing obstructive pneumonia and therefore is non resolving. On day of admission he was seen at outpatient oncology office and felt too weak. He also reports progressive shortness of breath associated with chills and sweats. ED evaluated patient for sepsis and workup initiated. ID consulted for non resolving pneumonia. dwayne Sidhu At time of my evaluation, patient is on [facility] floor and in no cardiopulmonary distress. He is not on pressors, UO ok, not much cough. Overnight events reviewed. No fevers No rash No diarrhea Reports the oxygen is drying his nose and he was uncomfortable all night. Antibiotics: Cefepime IV Vanco IV Visit to oral Lines: Lines okay Past Medical History: Colon cancer (Acute) Lung cancer metastatic to brain (Acute) Hypothyroid (Acute) GERD (gastroesophageal reflux disease) (Acute) HTN (hypertension) (Acute) Serum lipids high (Acute) COPD (chronic obstructive pulmonary disease) (Acute) CHF (congestive heart failure) (Acute) CAD (coronary artery disease) (Acute) Osteoarthritis (Acute) Anemia (Acute) Atrial fibrillation Impaction of colon Lung cancer Surgical History H/O hernia repair (Acute) Hx of cholecystectomy Allergies/Adverse Reactions: Allergies No Known Allergies Allergy (Unverified 01/10/18 19:02) Objective Vital Signs 01/11/18 14:00 01/11/18 15:00 01/11/18 16:00 Temperature 98 F Pulse Rate 94 H 95 H 94 H Respiratory Rate 22 Blood Pressure 107/73 Pulse Oximetry 94 L 01/11/18 16:21 01/11/18 17:00 01/11/18 18:00 Temperature Pulse Rate 84 102 H Respiratory Rate 20 Blood Pressure Pulse Oximetry 01/11/18 19:00 01/11/18 20:00 01/11/18 21:00 Temperature 97.8 F Pulse Rate 104 H 100 H 98 H Respiratory Rate 16 Blood Pressure 110/63 Pulse Oximetry 93 L 01/11/18 22:00 01/11/18 23:00 01/12/18 00:00 Temperature Pulse Rate 96 H 97 H 90 Respiratory Rate 16 Blood Pressure 104/65 Pulse Oximetry 96 01/12/18 01:00 01/12/18 02:00 01/12/18 03:00 Temperature Pulse Rate 90 92 H 102 H Respiratory Rate Blood Pressure Pulse Oximetry 01/12/18 03:43 01/12/18 04:00 01/12/18 05:00 Temperature Pulse Rate 82 104 H 104 H Respiratory Rate 16 Blood Pressure 103/65 Pulse Oximetry 95 01/12/18 06:00 01/12/18 07:00 01/12/18 08:00 Temperature 97.8 F Pulse Rate 96 H 106 H 95 H Respiratory Rate 18 Blood Pressure 103/67 Pulse Oximetry 92 L 01/12/18 09:00 01/12/18 10:00 01/12/18 11:00 Temperature Pulse Rate 106 H 122 H 96 H Respiratory Rate Blood Pressure Pulse Oximetry 01/12/18 12:00 Temperature 97.9 F Pulse Rate 94 H Respiratory Rate 20 Blood Pressure 104/63 Pulse Oximetry 94 L Intake & Output 01/11/18 01/12/18 01/12/18 18:59 06:59 18:59 Intake Total 580 / 580 1210 / 1210 250 / 250 Output Total 800 / 800 Balance 580 / 580 410 / 410 250 / 250 Weight 96.3 kg Intake: IV 100 / 100 970 / 970 250 / 250 Azithromycin Inj 500 MG In NS 250 / 250 Inj 250 ML @ 250 mls/hr IV.SIG Q24H ZACH Rx#:[id number] Maxipime Inj 2,000 MG In NS Inj 100 / 100 200 / 200 100 ML @ 200 mls/hr IV.SIG Q8H [facility]ACH Rx#:[id number] Vancomycin Inj 1,000 MG In NS 250 / 250 Inj 250 ML @ 250 mls/hr IV.SIG Q12H [facility] Rx#:[id number] Vancomycin Inj 2,000 MG In NS 520 / 520 Inj 500 ML @ 250 mls/hr IV.SIG ONCE ONE Rx#:[id number] Oral 480 / 480 240 / 240 Output: Urine 800 / 800 Other: # Voids 3 Date of Last Bowel Movement 01/11/18 01/12/18 01/12/18 # Bowel Movements 2 1 01/10/18 15:46 Blood - Peripheral Aerobic Blood Culture - Preliminary No growth in 2 days 01/10/18 15:46 Blood - Peripheral Anaerobic Blood Culture - Preliminary No growth in 2 days 01/10/18 15:46 Blood - Peripheral Aerobic Blood Culture - Preliminary No growth in 2 days 01/10/18 15:46 Blood - Peripheral Anaerobic Blood Culture - Preliminary No growth in 2 days Lab - Hematology Results 01/10/18 01/12/18 15:46 06:20 WBC 23.4 H 16.9 H RBC 5.73 4.88 Hgb 17.5 H 14.8 D Hct 51.6 H 43.7 MCV 90.1 89.6 MCH 30.6 30.4 MCHC 33.9 33.9 RDW 15.1 14.8 Plt Count 228 166 MPV 8.5 8.6 Prelim Diff (Auto) Slide review pending Neut % (Auto) 91.6 H 94.8 H Lymph % (Auto) 1.9 L 1.5 L Gulf % (Auto) 4.9 3.2 Eos % (Auto) 1.3 0.3 Baso % (Auto) 0.3 0.2 Neut # (Auto) 21.4 H 16.0 H Lymph # (Auto) 0.4 L 0.2 L Gulf # (Auto) 1.1 H 0.5 Eos # (Auto) 0.3 0.0 Baso # (Auto) 0.1 0.0 WBC Differential . . Diff Scan Auto diff confirmed Differential Comment . Auto diff final Platelet Estimate Normal Platelet Morphology Normal RBC Morphology Normal Lab - Chemistry Results 01/10/18 01/10/18 01/10/18 15:46 15:46 15:46 Sodium 137 Potassium 4.1 Chloride 98 Carbon Dioxide 25.2 Anion Gap 14 BUN 50 H Creatinine 1.14 Estimated GFR 63 L POC Glucose 244 H Random Glucose 245 H Lactic Acid Calcium 8.7 Total Bilirubin 1.4 H AST 31 ALT 29 Alkaline Phosphatase 137 H Troponin I 0.04 B-Natriuretic Peptide 56 Total Protein 6.8 Albumin 3.4 TSH 3.860 H 01/10/18 01/10/18 01/12/18 19:23 22:50 06:20 Sodium 140 Potassium 3.2 L D Chloride 104 Carbon Dioxide 23.5 Anion Gap 13 BUN 32 H Creatinine 0.59 L Estimated GFR Greater than 89 POC Glucose Random Glucose 174 H Lactic Acid 3.9 H 3.5 H Calcium 8.0 L Total Bilirubin AST ALT Alkaline Phosphatase Troponin I B-Natriuretic Peptide Total Protein Albumin TSH Imaging: ITS Impressions Chest X-Ray 01/10/18 15:13 CONCLUSION: Slight increase in right lung consolidation since December 31. Differential diagnosis includes pneumonia and aspiration. Physical Exam: GENERAL: Well-nourished well-developed, not in acute distress SKIN: Cool and dry, no generalized rash HEAD: Atraumatic. Normocephalic. No temporal or scalp tenderness. EYES: Pupils equal round and reactive. Scleral icterus. No injection or drainage. No petechia ENT: Nothing abnormal detected NECK: Trachea midline. Supple, nontender, no meningeal signs. CARDIOVASCULAR: HS audible. RESPIRATORY: Decreased air entry bilaterally R > L. GASTROINTESTINAL: Abdomen soft nontender. MUSCULOSKELETAL: Extremities without clubbing, cyanosis. NEUROLOGICAL: Alert oriented 3. Nonfocal. Buttock with abrasions. Psych cooperative IV line sites ok. Assessment and Plan - Plan Sepsis present on admission Non resolving pneumonia Lung Cancer with brain mets H/o Bowel obstruction recently. Recs Continue Cefepime IV Continue Vanco IV (target trough 15-20) Continue azithromycin Urine legionella Ag and Urine Pneumococcal Ag not sent yet we will as RN to send the same.k Follow blood cultures Oncology consult per request so Oncologists can talk to each other and help with decision making. Appreciate palliative care input If goals remain aggressive will consider Bronchoscopy. Discussed with hospitalist
--- NOTE | 2018-01-12 17:37 | P.PNWCN ---
Wound Care Nurse Consult Description: Consult for Wound Management of buttock per Dr Quijano Communicated with: SHABBIR Augustin Patient family member at bedside Recommendation: Daily: 1. Apply Stomahesive powder to bilateral inner buttocks, wipe away excess. 2. Apply Skin prep and allow to dry (creates a protective layer) 3. Follow up with Calazime for incontinence PRN. 4. Change disposable ultrasorb underpads when soiled. Float heels off mattress surface. Reposition patient from left to right sides only. Please do not use briefs or cotton pull pads for incontinent patient. Additional information: Attempted to see patient 3x's today. Third attempt successful. Patient seen on for bilateral buttock partial thickness skin loss due to a previous resolved impaction. Also noted with bruising to upper buttocks from what patient family describes as being from the radiation table. Patient was cleansed of bm during assessment. Encrusting was demonstrated to both the RN at bedside and the TECHNOLOGY EDUCATION TEACHER. All cotton underpads were removed and patient was encrusted using stoma powder and skin prep. Calazime was then applied to bilateral inner buttocks to protect from moisture related skin breakdown. Bruising can be resolved by keeping patient off the area by turning patient from left to right sides only. Blue heel raiser boots to be ordered for resolving purple dissipating areas on heels. Incision - Patient Status Premedicated for Pain Prior to Dressing Change: No
[2018-01-12] MEDS: Sod Chloride 0.9% Inj 1,000 ML IV.CONT SCH (17:52)
[2018-01-12] MEDS: Enoxaparin Inj 40 MG/0.4 ML Syringe SQ SCH (17:52)
[2018-01-12] MEDS ORDERED: Sod Chloride 0.9% Inj 1,000 ML IV.CONT SCH (18:40)
[2018-01-12] MEDS: Vancomycin Inj 1,500 MG in Sodium Chlor 0.9% Inj 500 ML IV.SIG SCH (18:44)
[2018-01-12] MEDS: Azithromycin Inj 500 MG in Sodium Chlor 0.9% Inj 250 ML IV.SIG SCH (21:25)
[2018-01-12] MEDS: Amiodarone 200 MG Tablet PO SCH (22:22)
[2018-01-13] MEDS: Vancomycin Inj 1,500 MG in Sodium Chlor 0.9% Inj 500 ML IV.SIG SCH ×2 (06:16→18:13)
[2018-01-13] MEDS: Levothyroxine 100 MCG Tablet PO SCH (06:16)
--- NOTE | 2018-01-13 09:11 | P.CON ---
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 Patient was last seen by me last Friday as we attempted to do radiosurgery to the brain but patient was not able to tolerate it. Patient was admitted with the above-mentioned complaints. Dr. Valencia has placed a consult evaluation for the patient to continue his care. Patient is supposed to have radiosurgery today and will be brought down to the department for completion of therapy. Review of Systems Constitutional: Reports anorexia, Reports fatigue, Reports lack of energy, Reports malaise, Reports weakness, Denies body ache(s), Denies chills, Denies daytime sleepiness, Denies excessive sweating, Denies fever(s), Denies headache( s), Denies increased appetite, Denies night sweats, Denies weight gain, Denies weight loss, Denies other Eyes: Denies blind spots, Denies blurry vision, Denies bulging eyes, Denies change in vision, Denies double vision, Denies discharge, Denies dry eyes, Denies floaters, Denies irritation, Denies itchy eyes, Denies loss of vision, Denies pain, Denies requires corrective lenses, Denies sensitivity to light, Denies other Cardiovascular: Denies chest pain, Denies chest pain at rest, Denies chest pain with activity, Denies excessive sweating, Denies fainting, Denies fast heart rate, Denies foot swelling, Denies generalized swelling, Denies irregular heart rhythm, Denies leg pain with activity, Denies leg sores, Denies leg swelling, Denies lightheadedness, Denies radiating jaw, neck or arm pain, Denies rapid, pounding, or irregular heartbeat, Denies shortness of breath with activity, Denies shortness of breath when lying down, Denies shortness of breath causing sudden awakening, Denies slow heart rate, Denies other Respiratory: Reports cough, Reports shortness of breath with activity, Denies change in phlegm color, Denies chest congestion, Denies coughing up blood, Denies excessive phlegm production, Denies pain on inspiration, Denies pain with cough, Denies shortness of breath, Denies snoring, Denies stridor, Denies wheezing, Denies other Gastrointestinal: Denies abdominal pain, Denies belching, Denies black, tarry stools, Denies bloating, Denies bright, red blood in stools, Denies change in bowel habits, Denies constant urge to pass stool, Denies change in stools, Denies coffee ground vomit, Denies constipation, Denies cramping, Denies difficulty swallowing, Denies excessive passing of gas, Denies feeling full early, Denies heartburn, Denies incontinent of stools, Denies loose stools, Denies nausea, Denies pain with swallowing, Denies vomiting, Denies vomiting blood, Denies other Genitourinary: Denies blood in semen, Denies blood in urine, Denies decreased urination, Denies difficulty urinating, Denies difficulty with ejaculations, Denies erectile dysfunction, Denies genital lesions, Denies genital pain, Denies painful urination, Denies side pain, Denies frequent nighttime urination , Denies painful ejaculations, Denies penile discharge, Denies scrotal swelling , Denies testicle lump, Denies testicle pain, Denies urinary frequency, Denies urinary hesitancy, Denies urinary incontinence, Denies urinary urgency, Denies other Musculoskeletal: Reports body aches, Reports decreased muscle mass, Reports limited joint movement, Reports neck pain, Reports stiffness, Denies abnormal walking, Denies back pain, Denies deformity, Denies joint pain, Denies joint swelling, Denies loss of height, Denies muscle cramps, Denies muscle weakness, Denies numbness, Denies radiating pain into limb, Denies tingling, Denies other Skin/Breast: Denies acne, Denies bleeding lesions, Denies boil, Denies breast swelling, Denies breast skin changes, Denies breast pain, Denies breast lump, Denies change in breast shape, Denies change in hair, Denies change in skin color, Denies changing lesions, Denies dry skin, Denies excessive hair growth, Denies hair loss, Denies itching, Denies lesions, Denies nail changes, Denies new lesions, Denies nipple discharge, Denies non-healing lesions, Denies redness , Denies sensitivity to light, Denies rash, Denies skin pain, Denies skin ulcer , Denies sores, Denies stretch [place], Denies unusual bruising, Denies wounds, Denies yellowing of the skin, Denies other Neurologic: Denies abnormal hearing, Denies abnormal movements, Denies abnormal speech, Denies abnormal walking, Denies behavioral changes, Denies burning sensations, Denies confusion, Denies dizziness, Denies fainting, Denies frequent falls, Denies headache(s), Denies lack of coordination, Denies localized weakness, Denies loss of vision, Denies memory loss, Denies numbness, Denies other visual disturbances, Denies radiating pain, Denies restless legs, Denies convulsions, Denies seizure-like activity, Denies sensory deficit, Denies tingling, Denies tingling/numbness/burning sensations, Denies tremor(s), Denies unsteadiness, Denies weakness, Denies other Psychiatric: Denies abnormal sleep pattern, Denies anxiety, Denies behavioral changes, Denies change in appetite, Denies change in sex drive, Denies confusion , Denies depression, Denies difficulty concentrating, Denies hearing things others do not hear, Denies hopelessness, Denies irritability, Denies lack of enjoyment, Denies memory loss, Denies mood swings, Denies panic attacks, Denies paranoia, Denies seeing things others do not see, Denies sensing things others do not sense, Denies tactile hallucinations, Denies thoughts of hurting/killing others, Denies thoughts of hurting/killing yourself, Denies other Endocrine: Denies cold intolerance, Denies excessive sweating, Denies flushing, Denies heat intolerance, Denies increased hunger, Denies increased thirst, Denies increased urination, Denies rapid, pounding, or irregular heartbeat, Denies other Hematologic/Lymphatic: Denies easy bleeding, Denies easy bruising, Denies enlarged lymph nodes, Denies other Allergic/Immunologic: Denies GI upset with certain foods, Denies hives, Denies itchy eyes, Denies lip swelling, Denies seasonal runny nose, Denies throat swelling, Denies tongue swelling, Denies wheezing, Denies other PMFSH - History History Provided By: Patient - Medical / Surgical Hx Neg / Unobtainable Medical Problems Denied: Yes - Medical History Medical History: Medical History (Last Reviewed 01/12/18 @ 19:00 by Ravin Joseph) Colon cancer (Acute) Lung cancer metastatic to brain (Acute) Hypothyroid (Acute) GERD (gastroesophageal reflux disease) (Acute) HTN (hypertension) (Acute) Serum lipids high (Acute) COPD (chronic obstructive pulmonary disease) (Acute) CHF (congestive heart failure) (Acute) CAD (coronary artery disease) (Acute) Osteoarthritis (Acute) Anemia (Acute) Atrial fibrillation Impaction of colon Lung cancer - Surgical History Surgical History: Surgical History (Last Reviewed 01/12/18 @ 19:00 by Ravin Joseph) H/O hernia repair (Acute) Hx of cholecystectomy - Family History Family History: Family History (Last Updated 01/10/18 @ 18:55 by Ayaz Jiang MD) Mother Coronary artery disease Father Coronary artery disease - Tobacco History Second Hand Smoke Exposure: No Tobacco Use In Past 30 Days: No Smoking Status: Former smoker - Alcohol History How Often Do You Have a Drink Containing Alcohol: Never - Substance Use History Substance History: No History of Abuse - Substance Use Type Alcohol Status: Sustained Remission Route Used: By Mouth Comment: Patient quit drinking 4 years ago. - Travel History Recent Travel in the [place] Within the Last 8 Weeks: No Recent Travel Out of the Country Within the Last 8 Weeks: No - Immunization History Tetanus Immunization: <5 Years Hx Influenza Vaccine This Season: Yes Medications and Allergies Active Medications: Active Medications Hydrocodone Bitart/Acetaminophen ([place] 5/325) 1 tab PO BID PRN PRN Reason: PAIN 1-10 Last Admin: 01/13/18 03:30 Dose: 1 tab Al Hydroxide/Mg Hydroxide (Milk Of Magnthomas Liq) 30 ml PO Q12H PRN PRN Reason: Mild Constipation Albuterol (Albuterol Neb (Prn)) 2.5 mg NEB Q4HR NEB PRN PRN Reason: WHEEZING Amiodarone HCl (Cordarone) 100 mg PO MOWEFR [facility] Last Admin: 01/12/18 22:22 Dose: 100 mg Apixaban (Eliquis) 5 mg PO BID [facility] Last Admin: 01/12/18 21:26 Dose: 5 mg Atorvastatin Calcium (Lipitor) 40 mg PO DAILY [facility] Last Admin: 01/12/18 08:58 Dose: 40 mg Dexamethasone (Decadron) 4 mg PO Q12H [facility] Last Admin: 01/12/18 22:22 Dose: 4 mg Diazepam (Valium) 5 mg PO BID PRN PRN Reason: Anxiety Finasteride (Proscar) 5 mg PO DAILY [facility] Last Admin: 01/12/18 08:56 Dose: 5 mg Gabapentin (Neurontin) 900 mg PO BID [facility] Last Admin: 01/12/18 21:26 Dose: 900 mg Cefepime HCl 2,000 mg/ Sodium (Chloride) 100 mls @ 200 mls/hr IV.SIG Q8H [facility] Last Infusion: 01/13/18 03:25 Dose: Infused Azithromycin 500 mg/ Sodium (Chloride) 250 mls @ 250 mls/hr IV.SIG Q24H [facility] Last Admin: 01/12/18 21:25 Dose: 250 mls/hr Pharmacy Profile Note (Vancomycin Consult Pharmacy) 0 mls @ 0 mls/hr OTHER UNSCH [facility] Vancomycin HCl 1,500 mg/ (Sodium Chloride) 515 mls @ 250 mls/hr IV.SIG Q12H [facility] Last Admin: 01/13/18 06:16 Dose: 250 mls/hr Lactobacillus Acidophilus (Lactinex) 1 tab PO TID [facility] Last Admin: 01/12/18 18:36 Dose: 1 tab Levothyroxine Sodium (Synthroid) 100 mcg PO DAILY@0600 [facility] Last Admin: 01/13/18 06:16 Dose: 100 mcg Metoclopramide HCl (Reglan Inj) 5 mg IV.PUSH Q6HR PRN; Protocol PRN Reason: NAUSEA OR VOMITING Metoprolol Tartrate (Lopressor) 25 mg PO BID [facility] Last Admin: 01/12/18 21:26 Dose: 25 mg Miscellaneous Information ([facility] Ordered Lab Info) 0 each OTHER ONCE ONE Stop: 01/14/18 05:46 Morphine Sulfate (Morphine Inj) 4 mg IV.PUSH Q4H PRN PRN Reason: BREAKTHROUGH PAIN Potassium Chloride (Klor-Con 10) 10 meq PO DAILY [facility] Sodium Chloride (Ns Flush) 2 ml IV.FLUSH PRN PRN PRN Reason: FLUSH AFTER USING IV ACCESS Last Admin: 01/12/18 08:58 Dose: 2 ml Allergies Allergy/AdvReac Type Severity Reaction Status Date / Time No Known Allergies Allergy Unverified 07/07/18 19:02 Home Medications Medication Instructions Recorded Confirmed Type Lactobacillus acidoph-L.bulgar 1 tab PO TID 01/10/18 01/10/18 History [Floranex] amiodarone 100 mg PO MOWEFR 01/10/18 01/10/18 History apixaban [Eliquis] 5 mg PO BID 01/10/18 01/10/18 History atorvastatin [Lipitor] 40 mg PO DAILY 01/10/18 01/10/18 History dexamethasone [Decadron] 4 mg PO Q12H 01/10/18 01/10/18 History diazepam 5 mg PO BID PRN 01/10/18 01/10/18 History finasteride 5 mg PO DAILY 01/10/18 01/10/18 History furosemide [Lasix] 40 mg PO BID 01/10/18 01/10/18 History gabapentin 900 mg PO BID 01/10/18 01/10/18 History hydrocodone-acetaminophen [[place]] 1 tab PO BID PRN 01/10/18 01/10/18 History hydrocodone-homatropine [Hydromet] 10 ml PO Q6HR PRN 01/10/18 01/10/18 History levofloxacin 750 mg PO DAILY 01/10/18 01/10/18 History levothyroxine 100 mcg PO DAILY 01/10/18 01/10/18 History linaclotide [Linzess] 72 mcg PO DIRECTED PRN 01/10/18 01/10/18 History losartan 50 mg PO DAILY 01/10/18 01/10/18 History megestrol 800 mg PO DAILY 01/10/18 01/10/18 History metolazone 5 mg PO MOWEFR 01/10/18 01/10/18 History omeprazole 40 mg PO DAILY 01/10/18 01/10/18 History ondansetron [Zofran ODT] 4 mg PO Q6HR PRN 01/10/18 01/10/18 History paroxetine HCl [Paxil] 20 mg PO DAILY 01/10/18 01/10/18 History potassium chloride 20 meq PO DAILY 01/10/18 01/10/18 History Physical Exam Vital signs: Vital Signs 01/12/18 09:00 01/12/18 10:00 01/12/18 11:00 Temperature Pulse Rate 106 H 122 H 96 H Respiratory Rate Blood Pressure Pulse Oximetry 01/12/18 12:00 01/12/18 13:00 01/12/18 14:00 Temperature 97.9 F Pulse Rate 94 H 100 H 93 H Respiratory Rate 20 Blood Pressure 104/63 Pulse Oximetry 94 L 01/12/18 15:00 01/12/18 16:00 01/12/18 16:06 Temperature 98.1 F Pulse Rate 96 H 93 H 85 Respiratory Rate 18 Blood Pressure 89/67 L Pulse Oximetry 95 01/12/18 17:54 01/12/18 18:51 01/12/18 19:39 Temperature Pulse Rate 94 H 94 H 92 H Respiratory Rate Blood Pressure 84/60 L 96/70 L Pulse Oximetry 01/12/18 20:00 01/12/18 23:44 01/12/18 23:58 Temperature 97.2 F L 98.1 F Pulse Rate 100 H 88 89 Respiratory Rate 18 18 Blood Pressure 93/62 L 110/60 Pulse Oximetry 95 97 01/13/18 04:00 01/13/18 08:00 Temperature 98.2 F 97.6 F Pulse Rate 89 102 H Respiratory Rate 18 18 Blood Pressure 97/57 L 100/72 Pulse Oximetry 96 96 Intake & Output 01/12/18 01/13/18 01/13/18 18:59 06:59 18:59 Intake Total 450 / 450 855 / 855 Output Total 800 / 800 Balance 450 / 450 55 / 55 Weight 100.9 kg Intake: IV 450 / 450 615 / 615 Maxipime Inj 2,000 MG In NS Inj 200 / 200 100 / 100 100 ML @ 200 mls/hr IV.SIG Q8H [facility] Rx#:[id number] Vancomycin Inj 1,000 MG In NS 250 / 250 Inj 250 ML @ 250 mls/hr IV.SIG Q12H [facility] Rx#:[id number] Vancomycin Inj 1,500 MG In NS 515 / 515 Inj 500 ML @ 250 mls/hr IV.SIG Q12H [facility] Rx#:[id number] Other 240 / 240 Output: Urine 800 / 800 Other: Date of Last Bowel Movement 01/12/18 01/12/18 # Bowel Movements 0 - Constitutional no acute distress, morbidly obese, obese, cooperative - Routine HEENT Exam Head: Present: normocephalic ENT: Present: mucous membranes moist - Routine Neck Exam Present: supple, trachea midline - Routine Respiratory Exam Present: decreased breath sounds, diminished air movement - Routine Abdominal Exam Present: soft - Routine Extremities Exam Present: edema - Routine Skin Exam Present: intact, dry - Routine Neurological Exam Present: alert, oriented X3, moving all extremities, normal tone, vision grossly intact, normal speech - Routine Psychiatric Exam Present: normal affect, normal thought process, cooperative, good insight, good judgment Assessment and Plan - Assessment (1) Lung cancer metastatic to brain Code(s): C34.90 - Malignant neoplasm of unspecified part of unspecified bronchus or lung; C79.31 - Secondary malignant neoplasm of brain Status: Acute - Plan I advised the patient that we will move forward with radiosurgery today and attempt to do it. I have discussed this with my staff and asked for the patient to be given pain medication as well as anxiety medication in order for him to take previous to the treatments. Have discussed this case with Dr. Alejo and informed him of the status of the patient. Patient was in agreement to proceed forward with treatments today. He was advised if I could be of any further assistance or to please let me know. Discussed Condition With: Dr. Alejo Discharge Planning: Patient can be discharged from my point of view any time that the admitting team desires to do so.
[2018-01-13] MEDS: Gabapentin 300 MG Capsule PO SCH ×2 (09:37→21:15)
[2018-01-13] MEDS: Lactobacillus Acidophilus/L. Spores Tablet PO SCH ×3 (09:37→17:35)
[2018-01-13] MEDS: Metoprolol Tartrate 25 MG Tablet PO SCH ×2 (09:37→21:16)
[2018-01-13] MEDS: Finasteride 5 MG Tablet PO SCH (09:37)
[2018-01-13] MEDS: Nystatin Liq 500,000 UNIT/5 ML UDC SWISH-SWAL SCH ×4 (10:04→21:16)
--- NOTE | 2018-01-13 11:27 | P.PNPAL ---
Reason for Visit Reason for visit: a. To assist with evaluation and management of symptoms including: Dyspnea, pain, decreased appetite b. To assist medical decision maker(s) with: better understanding of current medical conditions; weighing benefits/burdens of medical treatment options; making medical treatment decisions. Subjective Subjective/Interval History: Patient seen today to follow-up on dyspnea, pain, as well as goals of treatment. Patient has remained stable, transferred out of cardiac unit. Status post wound care consultation, several step barrier method recommended for rectal excoriation, as well as frequent [id number] turning and avoiding back positioning. Status post radiation oncology consultation, scheduled for radiation today. Status post oncology consultation Dr. Valencia notes will attempt to obtain additional records from Dr. Alejo. Patient not a candidate for palliative chemotherapy at this time due to poor performance status. May follow -up with Dr. Alejo outpatient for possible immunotherapy once recovered from current acute illness. Patient seen in room with , additionally met outside her room outpatient receiving personal care. He continues to have poor appetite eating bites only. Ate applesauce for breakfast today which reports exhausted him and he has been sleeping. Continues to have significant pain to his buttocks, as well as around his lower ribs/flank/back. Patient is adamant that he is not going for XRT today he indicates there is no way he can lay still and tolerated today. Explore with patient, possible trajectories including aggressive treatments would might include ongoing hospitalization, IVs, imaging etc. in order to get him well enough to pursue outpatient cancer treatment. Alternatively review that if goals are comfort oriented and he wishes to allow disease to follow a natural course and receive comfort treatments only then he may be a candidate for hospice services. Review hospice role, philosophy, services provided. Review goals of hospice are to provide maximize symptom relief, support at end-of-life. indicates that he has made it clear to her that he does not wish to do anymore treatments even XRT. Explore with possible benefits of XRT. Again explore prognosis and trajectories with continued aggressive approach versus comfort oriented possible hospice approach. For today she , pt wishe to hold off on XRT, improve pain control, talk more w pt, son, family, no further tx today, will likely want to meet with hospice tomorrow 01/14/18. discuss all w primary RN, oncology, medical attending I will enter orders to increase current [place] dose frequency, as well as add low -dose alprazolam for anxiety/dyspnea * * Of note he has known history of lung cancer with metastasis to the brain, and was planned to undergo treatment (? XRT) . He was due for treatment day of presentation but he felt too weak. During that admission he presented 12/31-- sent there by radiation oncologist. Plan for brain radiation over the next few weeks. He was known to have increased risk for pneumonia. Symptoms were shortness of breath, tachycardia, no findings of CHF or COPD exacerbation. Atrial fib present but controlled no RVR. He was planned for overnight hydration, monitoring; he was discharged home 01/01-appearing near his baseline, on oral Levaquin. * Oncology history per EMR 12/23/17: Per further review of records secondary malignant neoplasm of the brain was diagnosed 12/23/17, stage IV. He apparently initially presented with nausea and flank pain, GI evaluation found large infiltrating mass involving ascending colon. Further workup noted a large right -sided lung mass with some brain metastasis with possible metastatic disease to liver and bilateral adrenal glands. He was referred by Dr. Alejo to Dr. Butler here for brain radiation. He was sent for molecular genetics to determine appropriate chemo, however planned to start radiation for brain metastasis before starting the chemotherapy. Patient discussed and elected to proceed with radio surgery therapy with radiation oncology. Planned for follow- up for simulation treatment planning. Advance Directives Health Care Surrogate Name and Number: Janell Eastman spouse [phone] Objective Vital Signs: Vital Signs 01/12/18 12:00 01/12/18 13:00 01/12/18 14:00 Temperature 97.9 F Pulse Rate 94 H 100 H 93 H Respiratory Rate 20 Blood Pressure 104/63 Pulse Oximetry 94 L 01/12/18 15:00 01/12/18 16:00 01/12/18 16:06 Temperature 98.1 F Pulse Rate 96 H 93 H 85 Respiratory Rate 18 Blood Pressure 89/67 L Pulse Oximetry 95 01/12/18 17:54 01/12/18 18:51 01/12/18 19:39 Temperature Pulse Rate 94 H 94 H 92 H Respiratory Rate Blood Pressure 84/60 L 96/70 L Pulse Oximetry 01/12/18 20:00 01/12/18 23:44 01/12/18 23:58 Temperature 97.2 F L 98.1 F Pulse Rate 100 H 88 89 Respiratory Rate 18 18 Blood Pressure 93/62 L 110/60 Pulse Oximetry 95 97 01/13/18 04:00 01/13/18 08:00 01/13/18 09:32 Temperature 98.2 F 97.6 F Pulse Rate 89 102 H 90 Respiratory Rate 18 18 Blood Pressure 97/57 L 100/72 109/79 Pulse Oximetry 96 96 01/13/18 09:38 Temperature Pulse Rate 104 H Respiratory Rate Blood Pressure Pulse Oximetry Intake & Output 01/12/18 01/13/18 01/13/18 18:59 06:59 18:59 Intake Total 450 / 450 855 / 855 Output Total 800 / 800 Balance 450 / 450 55 / 55 Weight 100.9 kg Intake: IV 450 / 450 615 / 615 Maxipime Inj 2,000 MG In NS Inj 200 / 200 100 / 100 100 ML @ 200 mls/hr IV.SIG Q8H [facility] Rx#:[id number] Vancomycin Inj 1,000 MG In NS 250 / 250 Inj 250 ML @ 250 mls/hr IV.SIG Q12H [facility] Rx#:[id number] Vancomycin Inj 1,500 MG In NS 515 / 515 Inj 500 ML @ 250 mls/hr IV.SIG Q12H [facility] Rx#:[id number] Other 240 / 240 Output: Urine 800 / 800 Other: Date of Last Bowel Movement 01/12/18 01/12/18 # Bowel Movements 0 Physical Exam: CONSTITUTIONAL/GENERAL: This is an adequately nourished patient, lethargic TUBES/LINES/DRAINS: PIC UE, NC O2 SKIN: No jaundice, rashes, or lesions. Multiple areas Ecchymoses on upper extremities. few small skin tears. dressing to bilateral arms clean dry. Skin warm/dry. reported excoriation to rectal/buttock areas, did not visualize CARDIOVASCULAR: irregular rate/rhythm. no murmur. No JVD. Peripheral pulses symmetric. RESPIRATORY/CHEST: Symmetric, unlabored respirations. Expiratory wheezes throughout, decreased air movement. Mildly tachypneic 22. On NC O2 Breath sounds equal bilaterally. GASTROINTESTINAL: Abdomen soft, round, non-tender, nondistended. No hepato- splenomegaly, or palpable masses. No guarding. Bowel sounds present. NEUROLOGICAL: Lethargic but arousable. Oriented 23 though forgetful at times. Very [employer]GL[employer]. Follows commands. Moves all extremities. PSYCHIATRIC: No obvious anxiety/depression. no apparent hallucinations or other psychotic thought process. Diagnostic Tests Laboratory: Laboratory Results - last 72 hr 01/10/18 01/10/18 01/10/18 15:46 15:46 15:46 WBC 23.4 H RBC 5.73 Hgb 17.5 H Hct 51.6 H MCV 90.1 MCH 30.6 MCHC 33.9 RDW 15.1 Plt Count 228 MPV 8.5 Prelim Diff (Auto) Slide review pending Neut % (Auto) 91.6 H Lymph % (Auto) 1.9 L [place] % (Auto) 4.9 Eos % (Auto) 1.3 Baso % (Auto) 0.3 Neut # (Auto) 21.4 H Lymph # (Auto) 0.4 L [place] # (Auto) 1.1 H Eos # (Auto) 0.3 Baso # (Auto) 0.1 WBC Differential . Diff Scan Auto diff confirmed Differential Comment . Platelet Estimate Normal Platelet Morphology Normal RBC Morphology Normal Sodium 137 Potassium 4.1 Chloride 98 Carbon Dioxide 25.2 Anion Gap 14 BUN 50 H Creatinine 1.14 Estimated GFR 63 L POC Glucose Random Glucose 245 H Lactic Acid Calcium 8.7 Total Bilirubin 1.4 H AST 31 ALT 29 Alkaline Phosphatase 137 H Troponin I 0.04 B-Natriuretic Peptide 56 Total Protein 6.8 Albumin 3.4 TSH 3.860 H Urine Color Urine Clarity Urine pH Ur Specific Zoe Urine Protein Urine Glucose (UA) Urine Ketones Urine Occult Blood Urine Nitrate Urine Bilirubin Urine Urobilinogen Ur Leukocyte Esterase Urine WBC Ur Squamous Epith Cells Urine Mucus Micro UA Comment Urine Culture Comments 01/10/18 01/10/18 01/10/18 15:46 19:23 22:50 WBC RBC Hgb Hct MCV MCH MCHC RDW Plt Count MPV Prelim Diff (Auto) Neut % (Auto) Lymph % (Auto) [place] % (Auto) Eos % (Auto) Baso % (Auto) Neut # (Auto) Lymph # (Auto) [place] # (Auto) Eos # (Auto) Baso # (Auto) WBC Differential Diff Scan Differential Comment Platelet Estimate Platelet Morphology RBC Morphology Sodium Potassium Chloride Carbon Dioxide Anion Gap BUN Creatinine Estimated GFR POC Glucose 244 H Random Glucose Lactic Acid 3.9 H 3.5 H Calcium Total Bilirubin AST ALT Alkaline Phosphatase Troponin I B-Natriuretic Peptide Total Protein Albumin TSH Urine Color Urine Clarity Urine pH Ur Specific Zoe Urine Protein Urine Glucose (UA) Urine Ketones Urine Occult Blood Urine Nitrate Urine Bilirubin Urine Urobilinogen Ur Leukocyte Esterase Urine WBC Ur Squamous Epith Cells Urine Mucus Micro UA Comment Urine Culture Comments 01/11/18 01/12/18 01/12/18 15:50 06:20 06:20 WBC 16.9 H RBC 4.88 Hgb 14.8 D Hct 43.7 MCV 89.6 MCH 30.4 MCHC 33.9 RDW 14.8 Plt Count 166 MPV 8.6 Prelim Diff (Auto) Neut % (Auto) 94.8 H Lymph % (Auto) 1.5 L [place] % (Auto) 3.2 Eos % (Auto) 0.3 Baso % (Auto) 0.2 Neut # (Auto) 16.0 H Lymph # (Auto) 0.2 L [place] # (Auto) 0.5 Eos # (Auto) 0.0 Baso # (Auto) 0.0 WBC Differential . Diff Scan Differential Comment Auto diff final Platelet Estimate Platelet Morphology RBC Morphology Sodium 140 Potassium 3.2 L D Chloride 104 Carbon Dioxide 23.5 Anion Gap 13 BUN 32 H Creatinine 0.59 L Estimated GFR Greater than 89 POC Glucose Random Glucose 174 H Lactic Acid Calcium 8.0 L Total Bilirubin AST ALT Alkaline Phosphatase Troponin I B-Natriuretic Peptide Total Protein Albumin TSH Urine Color Yellow Urine Clarity Clear Urine pH 7.0 Ur Specific Zoe 1.024 Urine Protein 30 H Urine Glucose (UA) Negative Urine Ketones Negative Urine Occult Blood Negative Urine Nitrate Negative Urine Bilirubin Negative Urine Urobilinogen Less than 2 Ur Leukocyte Esterase Negative Urine WBC 5 Ur Squamous Epith Cells <1 Urine Mucus Few H Micro UA Comment Culture not ind Urine Culture Comments Culture not ind Result Diagrams: 01/12/18 06:20 01/12/18 06:20 Microbiology: Microbiology 01/10/18 15:46 Aerobic Blood Culture - Preliminary Blood - Peripheral No growth in 3 days Anaerobic Blood Culture - Preliminary No growth in 3 days 01/10/18 15:46 Aerobic Blood Culture - Preliminary Blood - Peripheral No growth in 3 days Anaerobic Blood Culture - Preliminary No growth in 3 days Imaging: ITS Impressions Chest X-Ray 01/10/18 15:13 CONCLUSION: Slight increase in right lung consolidation since December 31. Differential diagnosis includes pneumonia and aspiration. Assessment and Plan - Disease Oriented Problem List (1) RLL pneumonia (2) Atrial fibrillation with RVR (3) Sepsis (4) Failure of outpatient treatment (5) Lung cancer metastatic to brain (6) H/O hernia repair (7) Hypothyroid (8) GERD (gastroesophageal reflux disease) (9) HTN (hypertension) (10) Serum lipids high (11) COPD (chronic obstructive pulmonary disease) (12) CHF (congestive heart failure) (13) CAD (coronary artery disease) (14) Osteoarthritis (15) Anemia - Symptom Scale (1) Dyspnea 0-10 Scale: 8 (2) Pain 0-10 Scale: 10 Pertinent Non-Medical Issues: Psychosocial: Originally from [place]. Retired many years ago. Formerly worked in [employer]. He and his travel back and forth from [place] in [place] "snowbirds ". The recently they are staying here more than there. They have 2 adult children, a few grandchildren in [place]. Spiritual: Voodoo ramiro, does not desire sweatband maker visits at this time. Legal: Patient is lethargic at times of appears to have insight and ability to make his own medical decisions. His is designated as healthcare "proxy " as per [place] directive documentation. Bo London is named as a secondary, should patient become incapacitated. Ethical issues impacting care: No ethical issues identified. Important Contacts: Janell Eastman [phone] , Prognosis: This patient was admitted for shortness of breath, following failed outpatient treatment with oral Levaquin for pneumonia 12/31. He is currently receiving IV antibiotics, ID following. He has underlying diagnosis of lung cancer with metastasis to brain, as well as adrenal lymph nodes. Not clear that he was offered curative treatment for this though he was planned to start on immune therapy, as well as radiation to the brain last week which she was unable to do due to shortness of breath and presentation here. High risk for ongoing complications and setbacks related to chronic medical conditions, advanced age and underlying malignancy. May be hospice appropriate if did not desire further aggressive interventions. Code Status: No Code DNR Plan: Legal decision maker: Patient is lethargic though appears able to make his own medical decisions. Should he become incapacitated: His is designated as proxy her [facility] advanced directives. Bo London is a secondary. Goals: Goals evolving. Patient does not wish to complete XRT today, may wish to not do any more treatments at all. At this point considering hospice and comfort measures only. Wishes to discuss further today with family. Desires improved pain control. Will likely want to meet with hospice tomorrow . d/w RN, oncology,medical attending CODE STATUS: DNR SYMPTOMS: --Dyspnea-patient with persistent dyspnea over the past couple of months, worsened over the past 1-2 weeks. Severe dyspnea on exertion, minimal dyspnea at rest. Accompanied by infrequent nonproductive cough a few weeks ago had more significant cough but this has subsided. Imaging this admission consistent with increasing lower lobe consolidation, pneumonia. On IV antibiotics. Underlying lung malignancy with metastasis high risk for ongoing. No new imaging continues to have dyspnea today. We will add as needed alprazolam low-dose 0.25 mg q. 8 hour PRN; to assist with anxiety and associated dyspnea --Pain-activity and dyspnea. Endorses pain can go as high as 10 though when at rest may be much less closer to 01. He also endorses pain to buttocks immediately around rectal area secondary to skin excoriation secondary to ongoing diarrhea. He reports diarrhea started 4-5 weeks ago following correction for impaction/constipation and receiving multiple bowel agents. He is now been on antibiotic courses, and bowel motility agents have been discontinued however he continues to have some loose stool which is constantly irritating his skin. Wound consultation --recommend several step barrier method to clean perineum with each bowel movement. Has PRN morphine available , ptn [place] 5 mg. Discussed with medical attending, current p.o. regimen ineffective will increase frequency of [place] 5mg to every 6 hours PRN --Poor appetite-patient endorses significantly diminished appetite since starting Levaquin therapy just does not feel hungry. No GI complaints specifically such as nausea and vomiting. Just does not feel hungry. He has had general decrease in appetite for about 1 month and notes about 25 pound weight loss in about 1 month time. This is likely secondary to malignancy . May benefit from appetite stimulant such as Megace. Palliative care will continue to follow during hospital course as condition evolves, to assist patient/decision-maker with understanding of medical conditions, weighing benefits/burdens of treatment options, for clarification of goals of treatment. Additionally will assist with any symptoms of palliative concern Time Spent Total Floor Time (mins): 40 (Chart review, physical exam, discussion with patient and family, discussion with medical attending, oncology MEDICAL PAYMENT POSTER, primary RN ) Attestation Attestation: To help prompt me to consider important information that might be impacting today's encounter and assessment, information from prior notes written by myself or my colleagues may have been "brought forward" into today's note. My signature on this note, however, is an attestation that I personally performed the exam, history, and/or decision-making noted today, and, unless otherwise indicated, the interactions with patient, family, and staff as well as the review of records all occurred today. I also attest that the listed assessment and stated plan reflect my best clinical judgment today based on the combination of historical information, prior notes, and today's exam/ interactions. When time spent is documented, it refers only to time spent today by the signer, or if indicated, combined time spent today by collaborating physician/nurse practitioner.
--- NOTE | 2018-01-13 11:45 | P.PN ---
Subjective Interval history: Follow-up sepsis/pneumonia/lung cancer with metastases to the brain January 13, 2018-patient seen and examined, resting however per patient's is in pain and requesting adjustment to his pain medication. Patient does not want him to go for radiation today. She is leaning toward possible hospice. Case discussed with palliative care LIGHTING TECHNICIAN Physical Exam Vital signs: Vital Signs 01/12/18 12:00 01/12/18 13:00 01/12/18 14:00 Temperature 97.9 F Pulse Rate 94 H 100 H 93 H Respiratory Rate 20 Blood Pressure 104/63 Pulse Oximetry 94 L 01/12/18 15:00 01/12/18 16:00 01/12/18 16:06 Temperature 98.1 F Pulse Rate 96 H 93 H 85 Respiratory Rate 18 Blood Pressure 89/67 L Pulse Oximetry 95 01/12/18 17:54 01/12/18 18:51 01/12/18 19:39 Temperature Pulse Rate 94 H 94 H 92 H Respiratory Rate Blood Pressure 84/60 L 96/70 L Pulse Oximetry 01/12/18 20:00 01/12/18 23:44 01/12/18 23:58 Temperature 97.2 F L 98.1 F Pulse Rate 100 H 88 89 Respiratory Rate 18 18 Blood Pressure 93/62 L 110/60 Pulse Oximetry 95 97 01/13/18 04:00 01/13/18 08:00 01/13/18 09:32 Temperature 98.2 F 97.6 F Pulse Rate 89 102 H 90 Respiratory Rate 18 18 Blood Pressure 97/57 L 100/72 109/79 Pulse Oximetry 96 96 01/13/18 09:38 Temperature Pulse Rate 104 H Respiratory Rate Blood Pressure Pulse Oximetry Intake & Output 01/12/18 01/13/18 01/13/18 18:59 06:59 18:59 Intake Total 450 / 450 855 / 855 Output Total 800 / 800 Balance 450 / 450 55 / 55 Weight 100.9 kg Intake: IV 450 / 450 615 / 615 Maxipime Inj 2,000 MG In NS Inj 200 / 200 100 / 100 100 ML @ 200 mls/hr IV.SIG Q8H [facility] Rx#:[id number] Vancomycin Inj 1,000 MG In NS 250 / 250 Inj 250 ML @ 250 mls/hr IV.SIG Q12H [facility] Rx#:[id number] Vancomycin Inj 1,500 MG In NS 515 / 515 Inj 500 ML @ 250 mls/hr IV.SIG Q12H [facility] Rx#:[id number] Other 240 / 240 Output: Urine 800 / 800 Other: Date of Last Bowel Movement 01/12/18 01/12/18 # Bowel Movements 0 Narrative: GENERAL: NAD. SKIN: Warm and dry. HEAD: Normocephalic. EYES: No scleral icterus. No injection or drainage. NECK: Supple, trachea midline. No JVD or lymphadenopathy. CARDIOVASCULAR: Regular rate and rhythm without murmurs, gallops, or rubs. RESPIRATORY: Breath sounds equal bilaterally. No accessory muscle use. GASTROINTESTINAL: Abdomen soft, non-tender, nondistended. MUSCULOSKELETAL: No cyanosis, or edema. BACK: Nontender without obvious deformity. No CVA tenderness. Results - Labs CBC & Chem 7: 01/12/18 06:20 01/12/18 06:20 Microbiology 01/10/18 15:46 Blood - Peripheral Aerobic Blood Culture - Preliminary No growth in 3 days 01/10/18 15:46 Blood - Peripheral Anaerobic Blood Culture - Preliminary No growth in 3 days 01/10/18 15:46 Blood - Peripheral Aerobic Blood Culture - Preliminary No growth in 3 days 01/10/18 15:46 Blood - Peripheral Anaerobic Blood Culture - Preliminary No growth in 3 days - Procedures None Assessment and Plan - Assessment (1) Failure of outpatient treatment Code(s): Z78.9 - Other specified health status Status: Acute (2) Sepsis Code(s): A41.9 - Sepsis, unspecified organism Status: Acute (3) Lung cancer metastatic to brain Code(s): C34.90 - Malignant neoplasm of unspecified part of unspecified bronchus or lung; C79.31 - Secondary malignant neoplasm of brain Status: Acute - Plan 77-year-old man with Sepsis Community-acquired pneumonia Outpatient treatment failure Pneumonia with lung cancer Immunocompromise in presence of cancer Treat with cefepime, vancomycin and azithromycin per infectious disease specialist Monitor for improvement infectious signs including leukocytosis, tachycardia, and symptoms Atrial fibrillation with RVR On home medication Amiodarone 100mg MWF On Metoprolol 25mg BID Congestive heart failure Continue Lasix 20mg BID. Lung cancer Brain metastasis Plan for radiosurgery today 01/13/18; however patient and would like to skip today therapy Med and Radiation Onc ff Continue with Decadron Family is leaning toward Hospice Hypothyroidism Continue levothyroxine 100 mcg daily. (2) Sepsis Qualifiers: Sepsis type: sepsis due to unspecified organism Qualified Code(s): A41.9 - Sepsis, unspecified organism
[2018-01-13 13:27] LABS: Glomerular Filtration Rate Greater Than 89 mL/min (>89)
--- NOTE | 2018-01-13 14:08 | P.PNONC ---
Subjective Interval history: Patient seen and examined earlier this morning around 10:30 AM Afebrile He is quite adamant that he does not want any therapy including radiation or chemo not at bedside during exam Patient reports his breathing is "okay" Objective Vital Signs/Intake & Output: Vital Signs 01/12/18 15:00 01/12/18 16:00 01/12/18 16:06 Temperature 98.1 F Pulse Rate 96 H 93 H 85 Respiratory Rate 18 Blood Pressure 89/67 L Pulse Oximetry 95 01/12/18 17:54 01/12/18 18:51 01/12/18 19:39 Temperature Pulse Rate 94 H 94 H 92 H Respiratory Rate Blood Pressure 84/60 L 96/70 L Pulse Oximetry 01/12/18 20:00 01/12/18 23:44 01/12/18 23:58 Temperature 97.2 F L 98.1 F Pulse Rate 100 H 88 89 Respiratory Rate 18 18 Blood Pressure 93/62 L 110/60 Pulse Oximetry 95 97 01/13/18 04:00 01/13/18 08:00 01/13/18 09:32 Temperature 98.2 F 97.6 F Pulse Rate 89 102 H 90 Respiratory Rate 18 18 Blood Pressure 97/57 L 100/72 109/79 Pulse Oximetry 96 96 01/13/18 09:38 01/13/18 11:44 01/13/18 12:00 Temperature 97.3 F L Pulse Rate 104 H 85 90 Respiratory Rate 18 Blood Pressure 93/71 L Pulse Oximetry 92 L Intake & Output 01/12/18 01/13/18 01/13/18 18:59 06:59 18:59 Intake Total 450 / 450 855 / 855 865 / 865 Output Total 800 / 800 Balance 450 / 450 55 / 55 865 / 865 Weight 222 lb 7.143 oz Intake: IV 450 / 450 615 / 615 865 / 865 Azithromycin Inj 500 MG In NS 250 / 250 Inj 250 ML @ 250 mls/hr IV.SIG Q24H ZACH Rx#:[id number] Maxipime Inj 2,000 MG In NS Inj 200 / 200 100 / 100 100 / 100 100 ML @ 200 mls/hr IV.SIG Q8H ZACH Rx#:[id number] Vancomycin Inj 1,000 MG In NS 250 / 250 Inj 250 ML @ 250 mls/hr IV.SIG Q12H [facility]ACH Rx#:[id number] Vancomycin Inj 1,500 MG In NS 515 / 515 515 / 515 Inj 500 ML @ 250 mls/hr IV.SIG Q12H ZACH Rx#:[id number] Other 240 / 240 Output: Urine 800 / 800 Other: Date of Last Bowel Movement 01/12/18 01/12/18 01/13/18 # Bowel Movements 0 Result Diagrams: 01/12/18 06:20 01/13/18 12:24 Laboratory Results: Laboratory Results - last 24 hr 01/13/18 12:24 Creatinine 0.76 Estimated GFR Greater than 89 Culture Results: Microbiology 01/10/18 15:46 Aerobic Blood Culture - Preliminary Blood - Peripheral No growth in 3 days Anaerobic Blood Culture - Preliminary No growth in 3 days 01/10/18 15:46 Aerobic Blood Culture - Preliminary Blood - Peripheral No growth in 3 days Anaerobic Blood Culture - Preliminary No growth in 3 days Medications: Active Medications Generic Name Dose Route Start Last Admin Trade Name Freq PRN Reason Stop Dose Admin Hydrocodone Bitart/Acetaminophen 1 tab 01/13/18 11:10 01/13/18 11:55 [place] 5/325 PO 1 tab Q6H PRN Administration PAIN 1-10 Amiodarone HCl 100 mg 01/12/18 23:14 01/12/18 22:22 Cordarone PO 100 mg MOWEFR ZACH Administration Apixaban 5 mg 01/11/18 09:00 01/13/18 09:37 Eliquis PO 5 mg BID ZACH Administration Atorvastatin Calcium 40 mg 01/11/18 09:00 01/13/18 09:38 Lipitor PO 40 mg DAILY ZACH Administration Dexamethasone 4 mg 01/10/18 23:15 01/13/18 11:54 Decadron PO 4 mg Q12H ZACH Administration Finasteride 5 mg 01/11/18 09:00 01/13/18 09:37 Proscar PO 5 mg DAILY ZACH Administration Gabapentin 900 mg 01/11/18 09:00 01/13/18 09:37 Neurontin PO 900 mg BID ZACH Administration Cefepime HCl 2,000 mg/ Sodium 100 mls @ 200 mls/hr 01/11/18 02:00 01/13/18 10 :13 Chloride IV.SIG Infused Q8H ZACH Infusion Azithromycin 500 mg/ Sodium 250 mls @ 250 mls/hr 01/10/18 20:00 01/13/18 13: 09 Chloride IV.SIG Infused Q24H [facility] Infusion Vancomycin HCl 1,500 mg/ 515 mls @ 250 mls/hr 01/12/18 18:00 01/13/18 08:20 Sodium Chloride IV.SIG Infused Q12H [facility]ACH Infusion Lactobacillus Acidophilus 1 tab 01/11/18 09:00 01/13/18 13:26 Lactinex PO 1 tab TID ZACH Administration Levothyroxine Sodium 100 mcg 01/11/18 06:00 01/13/18 06:16 Synthroid PO 100 mcg DAILY@0600 ZACH Administration Metoprolol Tartrate 25 mg 01/11/18 09:00 01/13/18 09:37 Lopressor PO 25 mg BID ZACH Administration Nystatin 5 ml 01/13/18 10:00 01/13/18 13:26 Mycostatin Liq SWISH-SWAL 5 ml QID ZACH Administration Potassium Chloride 10 meq 01/13/18 09:00 01/13/18 09:37 Klor-Con 10 PO 10 meq DAILY ZACH Administration Sodium Chloride 2 ml 01/10/18 15:13 01/12/18 08:58 Ns Flush IV.FLUSH 2 ml PRN PRN Administration FLUSH AFTER USING IV ACCESS Objective Remarks: GENERAL: Older male resting in bed in no obvious distress SKIN: Warm and dry. HEAD: Normocephalic. EYES: No scleral icterus. No injection or drainage. NECK: Supple, trachea midline. No JVD or lymphadenopathy. CARDIOVASCULAR: Regular rate and rhythm without murmurs. RESPIRATORY: Scattered rhonchi. Patient on 2 L nasal cannula. GASTROINTESTINAL: Abdomen soft, non-tender, nondistended. EXTREMITIES: Generalized edema MUSCULOSKELETAL: Generalized weakness NEUROLOGICAL: No obvious focal deficit. Awake, alert, and oriented x3. 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 Attempt to get records from Dr. Alejo's office. The patient is known to Dr. Butler and appreciate his input. 2. The patient is quite adamant that he does not want any treatment for his metastatic lung cancer. Palliative care is following. I have discussed with NEAL Cano and the is discussing with other family members but they are leaning towards hospice. 3. In terms of his metastatic lung cancer, he would not be a candidate for any immunotherapy at this time due to his deconditioned state. - Attending Statement The exam, history, and the medical decision-making described in the above note were completed with the assistance of the mid-level provider. I reviewed and agree with the findings presented. I attest that I had a [id number] encounter with the patient on the same day, and personally performed and documented my assessment and findings in the medical record. Patient is still very weak. He denies any headache. He denies any chest pain or shortness of breath. I have discussed this case with Dr. Butler. Reportedly patient had 6 brain lesion and has not started radiation yet. Reportedly patient also had bulky lung disease and supposed to start immunotherapy with Dr. Alejo. His overall prognosis appeared to be poor. Palliative medicine is following him to hopefully clarify his goal of care.
[2018-01-13] MEDS: ALPRAZolam 0.25 MG Tablet PO PRN (21:16)
[2018-01-13] MEDS: Azithromycin Inj 500 MG in Sodium Chlor 0.9% Inj 250 ML IV.SIG SCH (21:17)
[2018-01-14] MEDS: Morphine Inj 4 MG/ML Vial IV.PUSH PRN ×2 (02:58→09:08)
[2018-01-14] MEDS ORDERED: Pharmacy Ordered Lab Info OTHER ONE (05:45)
[2018-01-14] MEDS ORDERED: Vancomycin Inj 1,500 MG in Sodium Chlor 0.9% Inj 500 ML IV.SIG SCH (06:00)
[2018-01-14] MEDS: Vancomycin Inj 1,500 MG in Sodium Chlor 0.9% Inj 500 ML IV.SIG SCH (06:19)
[2018-01-14] MEDS: ALPRAZolam 0.25 MG Tablet PO PRN ×2 (06:21→21:16)
[2018-01-14] MEDS: Levothyroxine 100 MCG Tablet PO SCH (06:23)
[2018-01-14] MEDS: Lactobacillus Acidophilus/L. Spores Tablet PO SCH ×3 (08:58→18:02)
[2018-01-14] MEDS: Finasteride 5 MG Tablet PO SCH (08:58)
[2018-01-14] MEDS: Nystatin Liq 500,000 UNIT/5 ML UDC SWISH-SWAL SCH ×4 (08:58→21:15)
[2018-01-14] MEDS: Gabapentin 300 MG Capsule PO SCH ×2 (08:58→21:16)
[2018-01-14] MEDS: Metoprolol Tartrate 25 MG Tablet PO SCH ×2 (08:59→21:16)
--- NOTE | 2018-01-14 11:53 | P.PN ---
Subjective Interval history: Follow-up sepsis/pneumonia/lung cancer with metastases to the brain January 13, 2018-patient seen and examined, resting however per patient's is in pain and requesting adjustment to his pain medication. Patient does not want him to go for radiation today. She is leaning toward possible hospice. Case discussed with palliative care NEAL January 14, 2018-patient seen and examined, family and patient have decided to go for consult for hospice Physical Exam Vital signs: Vital Signs 01/13/18 12:00 01/13/18 15:59 01/13/18 16:00 Temperature 97.3 F L 97.4 F L Pulse Rate 90 91 H 87 Respiratory Rate 18 18 Blood Pressure 93/71 L 108/86 Pulse Oximetry 92 L 93 L 01/13/18 20:00 01/13/18 23:39 01/14/18 00:05 Temperature 97.5 F L 98.0 F Pulse Rate 93 H 78 92 H Respiratory Rate 18 16 Blood Pressure 115/76 110/58 L Pulse Oximetry 100 100 01/14/18 01:10 01/14/18 04:00 01/14/18 04:09 Temperature 98.1 F Pulse Rate 70 91 H Respiratory Rate 18 14 Blood Pressure 112/50 L Pulse Oximetry 97 01/14/18 08:00 Temperature 98.0 F Pulse Rate 82 Respiratory Rate 18 Blood Pressure 107/75 Pulse Oximetry 93 L Intake & Output 01/13/18 01/14/18 01/14/18 18:59 06:59 18:59 Intake Total 1305 / 1305 1435 / 1435 Balance 1305 / 1305 1435 / 1435 Weight 101.3 kg Intake: IV 1065 / 1065 865 / 865 Azithromycin Inj 500 MG In NS 250 / 250 250 / 250 Inj 250 ML @ 250 mls/hr IV.SIG Q24H [facility] Rx#:[id number] Maxipime Inj 2,000 MG In NS Inj 300 / 300 100 / 100 100 ML @ 200 mls/hr IV.SIG Q8H [facility] Rx#:[id number] Vancomycin Inj 1,500 MG In NS 515 / 515 515 / 515 Inj 500 ML @ 250 mls/hr IV.SIG Q12H [facility] Rx#:[id number] Oral 240 / 240 570 / 570 Other: # Voids 2 0 # Incontinent Voids 3 4 Date of Last Bowel Movement 01/13/18 01/14/18 # Bowel Movements 1 1 Narrative: GENERAL: NAD. SKIN: Warm and dry. HEAD: Normocephalic. EYES: No scleral icterus. No injection or drainage. NECK: Supple, trachea midline. No JVD or lymphadenopathy. CARDIOVASCULAR: Regular rate and rhythm without murmurs, gallops, or rubs. RESPIRATORY: Breath sounds equal bilaterally. No accessory muscle use. GASTROINTESTINAL: Abdomen soft, non-tender, nondistended. MUSCULOSKELETAL: No cyanosis, or edema. BACK: Nontender without obvious deformity. No CVA tenderness. Results - Labs CBC & Chem 7: 01/12/18 06:20 01/13/18 12:24 Laboratory Results - last 24 hr 01/13/18 01/14/18 12:24 06:05 Creatinine 0.76 Estimated GFR Greater than 89 Vancomycin Trough 21.9 H Microbiology 01/10/18 15:46 Blood - Peripheral Aerobic Blood Culture - Preliminary No growth in 4 days 01/10/18 15:46 Blood - Peripheral Anaerobic Blood Culture - Preliminary No growth in 4 days 01/10/18 15:46 Blood - Peripheral Aerobic Blood Culture - Preliminary No growth in 4 days 01/10/18 15:46 Blood - Peripheral Anaerobic Blood Culture - Preliminary No growth in 4 days - Procedures None Assessment and Plan - Assessment (1) Failure of outpatient treatment Code(s): Z78.9 - Other specified health status Status: Acute (2) Sepsis Code(s): A41.9 - Sepsis, unspecified organism Status: Acute (3) Lung cancer metastatic to brain Code(s): C34.90 - Malignant neoplasm of unspecified part of unspecified bronchus or lung; C79.31 - Secondary malignant neoplasm of brain Status: Acute - Plan 77-year-old man with Sepsis Community-acquired pneumonia Outpatient treatment failure Pneumonia with lung cancer Immunocompromise in presence of cancer Treat with cefepime, vancomycin and azithromycin per infectious disease specialist Monitor for improvement infectious signs including leukocytosis, tachycardia, and symptoms Atrial fibrillation with RVR On home medication Amiodarone 100mg MWF On Metoprolol 25mg BID Congestive heart failure Continue Lasix 20mg BID. Lung cancer Brain metastasis Med and Radiation Onc ff Continue with Decadron Consult hospice January 14, 2018 Hypothyroidism Continue levothyroxine 100 mcg daily. (2) Sepsis Qualifiers: Sepsis type: sepsis due to unspecified organism Qualified Code(s): A41.9 - Sepsis, unspecified organism
--- NOTE | 2018-01-14 13:59 | P.PNPAL ---
Reason for Visit Reason for visit: a. To assist with evaluation and management of symptoms including: Dyspnea, pain, decreased appetite b. To assist medical decision maker(s) with: better understanding of current medical conditions; weighing benefits/burdens of medical treatment options; making medical treatment decisions. Subjective Subjective/Interval History: (seen earlier today 1100) Patient seen today to follow-up on dyspnea, pain, as well as goals of treatment. Patient has remained stable. No new labs or imaging. Patient refused to proceed with radiation yesterday, he was considering hospice/comfort only. prn [place] frequency was increased, as well as prn alprazolam added for anxiety and dyspnea. Has been using [place] about every 6 hours, 4 doses in the last 24 hours. One dose of alprazolam required. Seen in room today, at bedside. She indicates she just spoke with medical attending. Patient is lethargic, indicates he is worn out after having a recent linen change and paulino care. She indicates he is much more comfortable today, that the pain regimen appears effective. She indicates he was somewhat restless last night and required a dose of alprazolam. Review w her pt current condition and limited options going forward-- aggressive tx versus comfort oriented treatment with hospice services. Again review hospice services role and philosophy. She indicates she also discussed hospice briefly with medical attending, and they would like to proceed with hospice consultation. Their son Surya is due to arrive from [place] later this afternoon or evening. Patient is sleeping through much of this though he does again indicate he does not wish to pursue radiation or any other treatments he he is "done". Otherwise very comfortable/relaxed to exam no apparent distress. requests whole milk and not skim, pt ordered for cardiac diet. Given he is nearing end of life, and has had minimal caloric intake . appropriate for regular diet if he desires. Will add regular diet. Med attending has entered hospice orders. * * Of note he has known history of lung cancer with metastasis to the brain, and was planned to undergo treatment (? XRT) . He was due for treatment day of presentation but he felt too weak. During that admission he presented 12/31-- sent there by radiation oncologist. Plan for brain radiation over the next few weeks. He was known to have increased risk for pneumonia. Symptoms were shortness of breath, tachycardia, no findings of CHF or COPD exacerbation. Atrial fib present but controlled no RVR. He was planned for overnight hydration, monitoring; he was discharged home 01/01-appearing near his baseline, on oral Levaquin. * Oncology history per EMR 12/23/17: Per further review of records secondary malignant neoplasm of the brain was diagnosed 12/23/17, stage IV. He apparently initially presented with nausea and flank pain, GI evaluation found large infiltrating mass involving ascending colon. Further workup noted a large right -sided lung mass with some brain metastasis with possible metastatic disease to liver and bilateral adrenal glands. He was referred by Dr. Alejo to Dr. Butler here for brain radiation. He was sent for molecular genetics to determine appropriate chemo, however planned to start radiation for brain metastasis before starting the chemotherapy. Patient discussed and elected to proceed with radio surgery therapy with radiation oncology. Planned for follow- up for simulation treatment planning. Advance Directives Health Care Surrogate Name and Number: Janell johnson [phone] Objective Vital Signs: Vital Signs 01/13/18 15:59 01/13/18 16:00 01/13/18 20:00 Temperature 97.4 F L 97.5 F L Pulse Rate 91 H 87 93 H Respiratory Rate 18 18 Blood Pressure 108/86 115/76 Pulse Oximetry 93 L 100 01/13/18 23:39 01/14/18 00:05 01/14/18 01:10 Temperature 98.0 F Pulse Rate 78 92 H Respiratory Rate 16 18 Blood Pressure 110/58 L Pulse Oximetry 100 01/14/18 04:00 01/14/18 04:09 01/14/18 08:00 Temperature 98.1 F 98.0 F Pulse Rate 70 91 H 82 Respiratory Rate 14 18 Blood Pressure 112/50 L 107/75 Pulse Oximetry 97 93 L 01/14/18 12:00 Temperature 97.3 F L Pulse Rate 90 Respiratory Rate 18 Blood Pressure 102/81 Pulse Oximetry 92 L Intake & Output 01/13/18 01/14/18 01/14/18 18:59 06:59 18:59 Intake Total 1305 / 1305 1435 / 1435 Balance 1305 / 1305 1435 / 1435 Weight 101.3 kg Intake: IV 1065 / 1065 865 / 865 Azithromycin Inj 500 MG In NS 250 / 250 250 / 250 Inj 250 ML @ 250 mls/hr IV.SIG Q24H [facility] Rx#:[id number] Maxipime Inj 2,000 MG In NS Inj 300 / 300 100 / 100 100 ML @ 200 mls/hr IV.SIG Q8H [facility] Rx#:[id number] Vancomycin Inj 1,500 MG In NS 515 / 515 515 / 515 Inj 500 ML @ 250 mls/hr IV.SIG Q12H [facility] Rx#:[id number] Oral 240 / 240 570 / 570 Other: # Voids 2 0 # Incontinent Voids 3 4 Date of Last Bowel Movement 01/13/18 01/14/18 # Bowel Movements 1 1 Physical Exam: CONSTITUTIONAL/GENERAL: This is an adequately nourished patient, lethargic TUBES/LINES/DRAINS: PIC UE, NC O2 SKIN: No jaundice, rashes, or lesions. Multiple areas Ecchymoses on upper extremities. few small skin tears. dressing to bilateral arms clean dry. Skin warm/dry. reported excoriation to rectal/buttock areas, did not visualize CARDIOVASCULAR: irregular rate/rhythm. no murmur. No JVD. Peripheral pulses symmetric. RESPIRATORY/CHEST: Symmetric, unlabored respirations. Expiratory wheezes throughout, decreased air movement. Mildly tachypneic 22. On NC O2 Breath sounds equal bilaterally. GASTROINTESTINAL: Abdomen soft, round, non-tender, nondistended. No hepato- splenomegaly, or palpable masses. No guarding. Bowel sounds present. NEUROLOGICAL: Lethargic but arousable. Oriented 23 though forgetful . Very [place]. Follows commands. Moves all extremities. PSYCHIATRIC: No obvious anxiety/depression. no apparent hallucinations or other psychotic thought process. Diagnostic Tests Laboratory: Laboratory Results - last 72 hr 01/11/18 01/12/18 01/12/18 15:50 06:20 06:20 WBC 16.9 H RBC 4.88 Hgb 14.8 D Hct 43.7 MCV 89.6 MCH 30.4 MCHC 33.9 RDW 14.8 Plt Count 166 MPV 8.6 Neut % (Auto) 94.8 H Lymph % (Auto) 1.5 L [place] % (Auto) 3.2 Eos % (Auto) 0.3 Baso % (Auto) 0.2 Neut # (Auto) 16.0 H Lymph # (Auto) 0.2 L [place] # (Auto) 0.5 Eos # (Auto) 0.0 Baso # (Auto) 0.0 WBC Differential . Differential Comment Auto diff final Sodium 140 Potassium 3.2 L D Chloride 104 Carbon Dioxide 23.5 Anion Gap 13 BUN 32 H Creatinine 0.59 L Estimated GFR Greater than 89 Random Glucose 174 H Calcium 8.0 L Urine Color Yellow Urine Clarity Clear Urine pH 7.0 Ur Specific [place] 1.024 Urine Protein 30 H Urine Glucose (UA) Negative Urine Ketones Negative Urine Occult Blood Negative Urine Nitrate Negative Urine Bilirubin Negative Urine Urobilinogen Less than 2 Ur Leukocyte Esterase Negative Urine WBC 5 Ur Squamous Epith Cells <1 Urine Mucus Few H Micro UA Comment Culture not ind Urine Culture Comments Culture not ind Vancomycin Trough 01/13/18 01/14/18 12:24 06:05 WBC RBC Hgb Hct MCV MCH MCHC RDW Plt Count MPV Neut % (Auto) Lymph % (Auto) [place] % (Auto) Eos % (Auto) Baso % (Auto) Neut # (Auto) Lymph # (Auto) [place] # (Auto) Eos # (Auto) Baso # (Auto) WBC Differential Differential Comment Sodium Potassium Chloride Carbon Dioxide Anion Gap BUN Creatinine 0.76 Estimated GFR Greater than 89 Random Glucose Calcium Urine Color Urine Clarity Urine pH Ur Specific [place] Urine Protein Urine Glucose (UA) Urine Ketones Urine Occult Blood Urine Nitrate Urine Bilirubin Urine Urobilinogen Ur Leukocyte Esterase Urine WBC Ur Squamous Epith Cells Urine Mucus Micro UA Comment Urine Culture Comments Vancomycin Trough 21.9 H Result Diagrams: 01/12/18 06:20 01/13/18 12:24 Microbiology: Microbiology 01/10/18 15:46 Aerobic Blood Culture - Preliminary Blood - Peripheral No growth in 4 days Anaerobic Blood Culture - Preliminary No growth in 4 days 01/10/18 15:46 Aerobic Blood Culture - Preliminary Blood - Peripheral No growth in 4 days Anaerobic Blood Culture - Preliminary No growth in 4 days Assessment and Plan - Disease Oriented Problem List (1) RLL pneumonia (2) Atrial fibrillation with RVR (3) Sepsis (4) Failure of outpatient treatment (5) Lung cancer metastatic to brain (6) H/O hernia repair (7) Hypothyroid (8) GERD (gastroesophageal reflux disease) (9) HTN (hypertension) (10) Serum lipids high (11) COPD (chronic obstructive pulmonary disease) (12) CHF (congestive heart failure) (13) CAD (coronary artery disease) (14) Osteoarthritis (15) Anemia Pertinent Non-Medical Issues: Psychosocial: Originally from [place]. Retired many years ago. Formerly worked in management. He and his travel back and forth from [place] in [place] "snowbirds ". The recently they are staying here more than there. They have 2 adult children, a few grandchildren in [place]. Spiritual: Yarsani ramiro, does not desire technical data analyst visits at this time. Legal: Patient is lethargic at times of appears to have insight and ability to make his own medical decisions. His is designated as healthcare "proxy " as per [place] directive documentation. Bo London is named as a secondary, should patient become incapacitated. Ethical issues impacting care: No ethical issues identified. Important Contacts: Janell Eastman [phone] , Prognosis: This patient was admitted for shortness of breath, following failed outpatient treatment with oral Levaquin for pneumonia 12/31. He is currently receiving IV antibiotics, ID following. He has underlying diagnosis of lung cancer with metastasis to brain, as well as adrenal lymph nodes. Not clear that he was offered curative treatment for this though he was planned to start on immune therapy, as well as radiation to the brain last week which she was unable to do due to shortness of breath and presentation here. High risk for ongoing complications and setbacks related to chronic medical conditions, advanced age and underlying malignancy. May be hospice appropriate if did not desire further aggressive interventions. Code Status: No Code DNR Plan: Legal decision maker: Patient is lethargic though appears able to make his own medical decisions. Should he become incapacitated: His is designated as proxy her [facility] advanced directives. Bo London is a secondary. Goals: Goals comfort oriented--- requests hospice consultation (entered by med attending) CODE STATUS: DNR SYMPTOMS: --Dyspnea-patient with persistent dyspnea over the past couple of months, worsened over the past 1-2 weeks. Severe dyspnea on exertion, minimal dyspnea at rest. Accompanied by infrequent nonproductive cough a few weeks ago had more significant cough but this has subsided. Imaging this admission consistent with increasing lower lobe consolidation, pneumonia. On IV antibiotics. Underlying lung malignancy with metastasis high risk for ongoing. No new imaging . has alprazolam low-dose 0.25 mg q. 8 hour PRN; to assist with anxiety and associated dyspnea, effective. --Pain-activity and dyspnea. Endorses pain can go as high as 10 though when at rest may be much less closer to 01. He also endorses pain to buttocks immediately around rectal area secondary to skin excoriation secondary to ongoing diarrhea. He reports diarrhea started 4-5 weeks ago following correction for impaction/constipation and receiving multiple bowel agents. He is now been on antibiotic courses, and bowel motility agents have been discontinued however he continues to have some loose stool which is constantly irritating his skin. Wound consultation --recommend several step barrier method to clean perineum with each bowel movement. Has PRN morphine available , prn [place] 5 mg. [place] 5mg to every 6 hours PRN ,has been using about every 6 hrs, effective --Poor appetite-patient endorses significantly diminished appetite since starting Levaquin therapy just does not feel hungry. No GI complaints specifically such as nausea and vomiting. Just does not feel hungry. He has had general decrease in appetite for about 1 month and notes about 25 pound weight loss in about 1 month time. This is likely secondary to malignancy . Palliative care will continue to follow during hospital course as condition evolves, to assist patient/decision-maker with understanding of medical conditions, weighing benefits/burdens of treatment options, for clarification of goals of treatment. Additionally will assist with any symptoms of palliative concern
--- NOTE | 2018-01-14 16:00 | P.DIET ---
Nutritional Evaluation Type of nutrition evaluation: initial Nutrition screening: Poor PO Intake Subjective Oral Diet Tolerance Assessment Indicates: Small amounts of food eaten Objective - Diagnosis Afib w/ RVR, RLL PNA, Sepsis - Objective % IBW: 112 (CUJ=439#) Body Weight Used for Calculations: Actual (97kg) Energy Needs - Lower Range (kCal/kg): 25 Energy Needs - Upper Range (kCal/kg): 30 Lower Limit kCal/kg (kCals): 2,425 Upper Limit kCal/kg (kCals): 2,910 Lower Limit Protein Factor (Grams per Kg): 1.2 Upper Limit Protein Factor (Grams per Kg): 1.5 Lower Protein Needs (Protein): 116 Upper Protein Needs (Protein): 146 Dietitian Reviewed in Medical Record: Current diet, Curent medications, Intake & Output, Labs, Medical history Diet Order: Regular Oral Diet Intake Amount: Poor <50% Wound Care Note: 01/12 WOCN: Bilateral Buttocks w/ partial thickness skin loss Objective Comments: Meds: Lactinex, Synthroid LBM 01/12 hx of lung cancer w/ brain mets Assessment Assessment: Pt admitted for afib w/ RVR, RLL PNA, and sepsis. Pt is at 112% of his IBW. Has lung cancer w/ mets to the brain. Has been refusing XRT. Palliative care notes reviewed, hospice consult ordered. Pt was changed to a Regular diet, which is appropriate. He has not been eating much. He is at high nutritional risk 2/2 current medical diagnosis and poor PO intake. Will monitor plan/goals of care. Continue current POC for now. Dietitian following. Recommendations: 1. Monitoring goals/plan of care. 2. Continue current POC for now. Dietitian to Monitor: Lab values, Intake & Output, Diet tolerance, Weight change , PO Intake, Medical course
--- NOTE | 2018-01-14 17:31 | P.PNONC ---
Subjective Interval history: Late entry. I saw patient this morning. He denies any headache, chest pain or shortness of breath. He is still very weak. He told me he wants to have radiation but he has told my nurse practitioner that he did not want to continue with treatment. Objective Vital Signs/Intake & Output: Vital Signs 01/13/18 20:00 01/13/18 23:39 01/14/18 00:05 Temperature 97.5 F L 98.0 F Pulse Rate 93 H 78 92 H Respiratory Rate 18 16 Blood Pressure 115/76 110/58 L Pulse Oximetry 100 100 01/14/18 01:10 01/14/18 04:00 01/14/18 04:09 Temperature 98.1 F Pulse Rate 70 91 H Respiratory Rate 18 14 Blood Pressure 112/50 L Pulse Oximetry 97 01/14/18 08:00 01/14/18 11:30 01/14/18 12:00 Temperature 98.0 F 97.3 F L Pulse Rate 82 90 Respiratory Rate 18 18 Blood Pressure 107/75 102/81 Pulse Oximetry 93 L 92 L 92 L Intake & Output 01/13/18 01/14/18 01/14/18 18:59 06:59 18:59 Intake Total 1305 / 1305 1435 / 1435 Balance 1305 / 1305 1435 / 1435 Weight 101.3 kg Intake: IV 1065 / 1065 865 / 865 Azithromycin Inj 500 MG In NS 250 / 250 250 / 250 Inj 250 ML @ 250 mls/hr IV.SIG Q24H ZACH Rx#:[id number] Maxipime Inj 2,000 MG In NS Inj 300 / 300 100 / 100 100 ML @ 200 mls/hr IV.SIG Q8H ZACH Rx#:[id number] Vancomycin Inj 1,500 MG In NS 515 / 515 515 / 515 Inj 500 ML @ 250 mls/hr IV.SIG Q12H [facility] Rx#:[id number] Oral 240 / 240 570 / 570 Other: # Voids 2 0 # Incontinent Voids 3 4 Date of Last Bowel Movement 01/13/18 01/14/18 # Bowel Movements 1 1 Result Diagrams: 01/12/18 06:20 01/13/18 12:24 Laboratory Results: Laboratory Results - last 24 hr 01/14/18 06:05 Vancomycin Trough 21.9 H Culture Results: Microbiology 01/10/18 15:46 Aerobic Blood Culture - Preliminary Blood - Peripheral No growth in 4 days Anaerobic Blood Culture - Preliminary No growth in 4 days 01/10/18 15:46 Aerobic Blood Culture - Preliminary Blood - Peripheral No growth in 4 days Anaerobic Blood Culture - Preliminary No growth in 4 days Medications: Active Medications Generic Name Dose Route Start Last Admin Trade Name Freq PRN Reason Stop Dose Admin Hydrocodone Bitart/Acetaminophen 1 tab 01/13/18 11:10 01/14/18 13:20 [place] 5/325 PO 1 tab Q6H PRN Administration PAIN 1-10 Alprazolam 0.25 mg 01/13/18 11:10 01/14/18 06:21 Xanax PO 0.25 mg Q8H PRN Administration ANXIETY Amiodarone HCl 100 mg 01/12/18 23:14 01/12/18 22:22 Cordarone PO 100 mg MOWEFR ZACH Administration Apixaban 5 mg 01/11/18 09:00 01/14/18 08:58 Eliquis PO 5 mg BID ZACH Administration Atorvastatin Calcium 40 mg 01/11/18 09:00 01/14/18 13:20 Lipitor PO 40 mg DAILY ZACH Administration Dexamethasone 4 mg 01/10/18 23:15 01/14/18 13:20 Decadron PO 4 mg Q12H ZACH Administration Finasteride 5 mg 01/11/18 09:00 01/14/18 08:58 Proscar PO 5 mg DAILY ZACH Administration Gabapentin 900 mg 01/11/18 09:00 01/14/18 08:58 Neurontin PO 900 mg BID ZACH Administration Cefepime HCl 2,000 mg/ Sodium 100 mls @ 200 mls/hr 01/11/18 02:00 01/14/18 09 :10 Chloride IV.SIG 100 mls/hr Q8H ZACH Administration Azithromycin 500 mg/ Sodium 250 mls @ 250 mls/hr 01/10/18 20:00 01/13/18 22: 17 Chloride IV.SIG Infused Q24H ZACH Infusion Lactobacillus Acidophilus 1 tab 01/11/18 09:00 01/14/18 13:20 Lactinex PO 1 tab TID ZACH Administration Levothyroxine Sodium 100 mcg 01/11/18 06:00 01/14/18 06:23 Synthroid PO 100 mcg DAILY@0600 ZACH Administration Metoprolol Tartrate 25 mg 01/11/18 09:00 01/14/18 08:59 Lopressor PO 25 mg BID ZACH Administration Morphine Sulfate 4 mg 01/11/18 10:50 01/14/18 09:08 Morphine Inj IV.PUSH 4 mg Q4H PRN Administration BREAKTHROUGH PAIN Nystatin 5 ml 01/13/18 10:00 01/14/18 13:19 Mycostatin Liq SWISH-SWAL 5 ml QID ZACH Administration Potassium Chloride 10 meq 01/13/18 09:00 01/14/18 08:58 Klor-Con 10 PO 10 meq DAILY ZACH Administration Sodium Chloride 2 ml 01/10/18 15:13 01/12/18 08:58 Ns Flush IV.FLUSH 2 ml PRN PRN Administration FLUSH AFTER USING IV ACCESS Objective Remarks: GENERAL: Well-nourished, well-developed patient. Weak. SKIN: Warm and dry. HEAD: Normocephalic. EYES: No scleral icterus. No injection or drainage. NECK: Supple, trachea midline. No JVD or lymphadenopathy. LYMPHATIC: No adenopathy. CARDIOVASCULAR: Regular rate and rhythm without murmurs. RESPIRATORY: Breath sounds equal bilaterally. No accessory muscle use. GASTROINTESTINAL: Abdomen soft, non-tender, nondistended. EXTREMITIES: No cyanosis, 1+ BLE edema. MUSCULOSKELETAL: Adequate muscle tone. NEUROLOGICAL: No obvious focal deficit. Awake, alert, and oriented x3. PSYCHIATRIC: Appropriate mood and affect; insight and judgment normal. Assessment/Plan (1) Lung cancer metastatic to brain Code(s): C34.90 - Malignant neoplasm of unspecified part of unspecified bronchus or lung; C79.31 - Secondary malignant neoplasm of brain Status: Acute - Plan 77-year-old male with history of metastatic lung cancer with metastases to brain admitted with weakness 1. Attempt to get records from Dr. Alejo's office. The patient is known to Dr. Butler and appreciate his input. 2. Patient told me he wants to have radiation but he told my nurse practitioner that he does not want any treatment for his metastatic lung cancer. Palliative care is following. Patient's family is leaning towards hospice. 3. In terms of his metastatic lung cancer, he would not be a candidate for any immunotherapy at this time due to his deconditioned state.
[2018-01-14] MEDS: Azithromycin Inj 500 MG in Sodium Chlor 0.9% Inj 250 ML IV.SIG SCH (21:15)
[2018-01-14] MEDS: Amiodarone 200 MG Tablet PO SCH (22:18)
[2018-01-15] MEDS: Morphine Inj 4 MG/ML Vial IV.PUSH PRN ×3 (02:59→14:42)
[2018-01-15] MEDS: Levothyroxine 100 MCG Tablet PO SCH (05:43)
[2018-01-15] MEDS ORDERED: Vancomycin Inj 1,500 MG in Sodium Chlor 0.9% Inj 500 ML IV.SIG SCH (06:00)
--- NOTE | 2018-01-15 07:56 | P.PNONC ---
Subjective Interval history: Patient stated that he has pain all over last night. He is very frustrated. He does not want any more treatment. He wants to go home. He denies any headache. He stated he has some pain but he does not want to talk about it. His is at the bedside. Objective Vital Signs/Intake & Output: Vital Signs 01/14/18 08:00 01/14/18 11:30 01/14/18 12:00 Temperature 98.0 F 97.3 F L Pulse Rate 82 90 Respiratory Rate 18 18 Blood Pressure 107/75 102/81 Pulse Oximetry 93 L 92 L 92 L 01/14/18 16:00 01/14/18 20:00 01/15/18 00:00 Temperature 97.1 F L 97.7 F 97.1 F L Pulse Rate 74 97 H 89 Respiratory Rate 20 20 20 Blood Pressure 109/66 112/84 125/100 H Pulse Oximetry 93 L 95 95 01/15/18 04:00 Temperature Pulse Rate 102 H Respiratory Rate Blood Pressure Pulse Oximetry Intake & Output 01/14/18 01/15/18 01/15/18 18:59 06:59 18:59 Intake Total 100 / 100 1205 / 1205 Output Total 500 / 500 Balance -400 / -400 1205 / 1205 Weight 103 kg Intake: IV 100 / 100 965 / 965 Azithromycin Inj 500 MG In NS 250 / 250 Inj 250 ML @ 250 mls/hr IV.SIG Q24H [facility] Rx#:[id number] Maxipime Inj 2,000 MG In NS Inj 100 / 100 200 / 200 100 ML @ 200 mls/hr IV.SIG Q8H [facility] Rx#:[id number] Vancomycin Inj 1,500 MG In NS 515 / 515 Inj 500 ML @ 250 mls/hr IV.SIG Q24H [facility] Rx#:[id number] Oral 240 / 240 Output: Urine 500 / 500 Other: # Incontinent Voids 1 2 Date of Last Bowel Movement 01/14/18 Result Diagrams: 01/12/18 06:20 01/13/18 12:24 Culture Results: Microbiology 01/10/18 15:46 Aerobic Blood Culture - Preliminary Blood - Peripheral No growth in 4 days Anaerobic Blood Culture - Preliminary No growth in 4 days 01/10/18 15:46 Aerobic Blood Culture - Preliminary Blood - Peripheral No growth in 4 days Anaerobic Blood Culture - Preliminary No growth in 4 days Medications: Active Medications Generic Name Dose Route Start Last Admin Trade Name Freq PRN Reason Stop Dose Admin Hydrocodone Bitart/Acetaminophen 1 tab 01/13/18 11:10 01/15/18 05:43 [place] 5/325 PO 1 tab Q6H PRN Administration PAIN 1-10 Alprazolam 0.25 mg 01/13/18 11:10 01/14/18 21:16 Xanax PO 0.25 mg Q8H PRN Administration ANXIETY Amiodarone HCl 100 mg 01/12/18 23:14 01/14/18 22:18 Cordarone PO 100 mg MOWEFR ZACH Administration Apixaban 5 mg 01/11/18 09:00 01/14/18 21:16 Eliquis PO 5 mg BID ZACH Administration Atorvastatin Calcium 40 mg 01/11/18 09:00 01/14/18 13:20 Lipitor PO 40 mg DAILY ZACH Administration Dexamethasone 4 mg 01/10/18 23:15 01/14/18 22:18 Decadron PO 4 mg Q12H ZACH Administration Finasteride 5 mg 01/11/18 09:00 01/14/18 08:58 Proscar PO 5 mg DAILY ZACH Administration Gabapentin 900 mg 01/11/18 09:00 01/14/18 21:16 Neurontin PO 900 mg BID ZACH Administration Cefepime HCl 2,000 mg/ Sodium 100 mls @ 200 mls/hr 01/11/18 02:00 01/15/18 03 :59 Chloride IV.SIG Infused Q8H ZACH Infusion Azithromycin 500 mg/ Sodium 250 mls @ 250 mls/hr 01/10/18 20:00 01/15/18 01: 39 Chloride IV.SIG Infused Q24H ZACH Infusion Vancomycin HCl 1,500 mg/ 515 mls @ 250 mls/hr 01/15/18 06:00 01/15/18 06:56 Sodium Chloride IV.SIG Infused Q24H ZACH Infusion Lactobacillus Acidophilus 1 tab 01/11/18 09:00 01/14/18 18:02 Lactinex PO 1 tab TID ZACH Administration Levothyroxine Sodium 100 mcg 01/11/18 06:00 01/15/18 05:43 Synthroid PO 100 mcg DAILY@0600 ZACH Administration Metoprolol Tartrate 25 mg 01/11/18 09:00 01/14/18 21:16 Lopressor PO 25 mg BID ZACH Administration Morphine Sulfate 4 mg 01/11/18 10:50 01/15/18 02:59 Morphine Inj IV.PUSH 4 mg Q4H PRN Administration BREAKTHROUGH PAIN Nystatin 5 ml 01/13/18 10:00 01/14/18 21:15 Mycostatin Liq SWISH-SWAL 5 ml QID ZACH Administration Potassium Chloride 10 meq 01/13/18 09:00 01/14/18 08:58 Klor-Con 10 PO 10 meq DAILY ZACH Administration Sodium Chloride 2 ml 01/10/18 15:13 01/12/18 08:58 Ns Flush IV.FLUSH 2 ml PRN PRN Administration FLUSH AFTER USING IV ACCESS Objective Remarks: GENERAL: Well-nourished, well-developed patient. Very weak SKIN: Warm and dry. HEAD: Normocephalic. EYES: No scleral icterus. No injection or drainage. NECK: Supple, trachea midline. No JVD or lymphadenopathy. LYMPHATIC: No adenopathy. CARDIOVASCULAR: Regular rate and rhythm without murmurs. RESPIRATORY: Breath sounds bibasilar crackles. No accessory muscle use. GASTROINTESTINAL: Abdomen soft, non-tender, nondistended. EXTREMITIES: No cyanosis, or 1+ BLE edema. MUSCULOSKELETAL: Adequate muscle tone. NEUROLOGICAL: No obvious focal deficit. Awake, alert, and oriented x3. PSYCHIATRIC: Appropriate mood and affect; insight and judgment normal. Assessment/Plan (1) Lung cancer metastatic to brain Code(s): C34.90 - Malignant neoplasm of unspecified part of unspecified bronchus or lung; C79.31 - Secondary malignant neoplasm of brain Status: Acute - Plan 77-year-old male with history of metastatic lung cancer with metastases to brain admitted with weakness 1. Attempt to get records from Dr. Alejo's office. The patient is known to Dr. Butler and appreciate his input. 2. Patient told me this morning that he does not want anymore treatment. He is frustrated and want to be discharged from the hospital. He stated he wished he could peacefully. We talk about hospice care and he wants to go home with hospice. Hospice has been consulted and palliative care medicine is following. Discussed with patient's and she agrees with hospice care.
[2018-01-15] MEDS: Metoprolol Tartrate 25 MG Tablet PO SCH (08:44)
[2018-01-15] MEDS: Gabapentin 300 MG Capsule PO SCH (08:45)
[2018-01-15] MEDS: Finasteride 5 MG Tablet PO SCH (08:45)
[2018-01-15] MEDS: Nystatin Liq 500,000 UNIT/5 ML UDC SWISH-SWAL SCH ×2 (08:45→12:05)
[2018-01-15] MEDS: Lactobacillus Acidophilus/L. Spores Tablet PO SCH ×2 (08:45→12:05)
--- NOTE | 2018-01-15 11:15 | P.PN ---
Subjective Interval history: Follow-up sepsis/pneumonia/lung cancer with metastases to the brain January 13, 2018-patient seen and examined, resting however per patient's is in pain and requesting adjustment to his pain medication. Patient does not want him to go for radiation today. She is leaning toward possible hospice. Case discussed with palliative care [employer] January 14, 2018-patient seen and examined, family and patient have decided to go for consult for hospice January 15, 2018-patient seen and examined, states he has a awful night. Case discussed with hospice nurse Physical Exam Vital signs: Vital Signs 01/14/18 11:30 01/14/18 12:00 01/14/18 16:00 Temperature 97.3 F L 97.1 F L Pulse Rate 90 74 Respiratory Rate 18 20 Blood Pressure 102/81 109/66 Pulse Oximetry 92 L 92 L 93 L 01/14/18 20:00 01/15/18 00:00 01/15/18 04:00 Temperature 97.7 F 97.1 F L Pulse Rate 97 H 89 102 H Respiratory Rate 20 20 Blood Pressure 112/84 125/100 H Pulse Oximetry 95 95 01/15/18 08:00 Temperature 97.9 F Pulse Rate 95 H Respiratory Rate 20 Blood Pressure 120/79 Pulse Oximetry 96 Intake & Output 01/14/18 01/15/18 01/15/18 18:59 06:59 18:59 Intake Total 100 / 100 1205 / 1205 Output Total 500 / 500 Balance -400 / -400 1205 / 1205 Weight 103 kg Intake: IV 100 / 100 965 / 965 Azithromycin Inj 500 MG In NS 250 / 250 Inj 250 ML @ 250 mls/hr IV.SIG Q24H [facility] Rx#:[id number] Maxipime Inj 2,000 MG In NS Inj 100 / 100 200 / 200 100 ML @ 200 mls/hr IV.SIG Q8H [facility]ACH Rx#:[id number] Vancomycin Inj 1,500 MG In NS 515 / 515 Inj 500 ML @ 250 mls/hr IV.SIG Q24H [facility] Rx#:[id number] Oral 240 / 240 Output: Urine 500 / 500 Other: # Incontinent Voids 1 2 Date of Last Bowel Movement 01/14/18 Narrative: GENERAL: NAD. SKIN: Warm and dry. HEAD: Normocephalic. EYES: No scleral icterus. No injection or drainage. NECK: Supple, trachea midline. No JVD or lymphadenopathy. CARDIOVASCULAR: Regular rate and rhythm without murmurs, gallops, or rubs. RESPIRATORY: Breath sounds equal bilaterally. No accessory muscle use. GASTROINTESTINAL: Abdomen soft, non-tender, nondistended. MUSCULOSKELETAL: No cyanosis, or edema. BACK: Nontender without obvious deformity. No CVA tenderness. Results - Labs CBC & Chem 7: 01/12/18 06:20 01/13/18 12:24 Microbiology 01/10/18 15:46 Blood - Peripheral Aerobic Blood Culture - Final No growth in 5 days 01/10/18 15:46 Blood - Peripheral Anaerobic Blood Culture - Final No growth in 5 days 01/10/18 15:46 Blood - Peripheral Aerobic Blood Culture - Final No growth in 5 days 01/10/18 15:46 Blood - Peripheral Anaerobic Blood Culture - Final No growth in 5 days - Procedures None Assessment and Plan - Assessment (1) Failure of outpatient treatment Code(s): Z78.9 - Other specified health status Status: Acute (2) Sepsis Code(s): A41.9 - Sepsis, unspecified organism Status: Acute (3) Lung cancer metastatic to brain Code(s): C34.90 - Malignant neoplasm of unspecified part of unspecified bronchus or lung; C79.31 - Secondary malignant neoplasm of brain Status: Acute - Plan 77-year-old man with Sepsis Community-acquired pneumonia Outpatient treatment failure Pneumonia with lung cancer Immunocompromise in presence of cancer Treat with cefepime, vancomycin and azithromycin per infectious disease specialist Atrial fibrillation with RVR On home medication Amiodarone 100mg MWF On Metoprolol 25mg BID Congestive heart failure Continue Lasix 20mg BID. Lung cancer Brain metastasis Med and Radiation Onc ff, however patient no longer wants any aggressive treatment Continue with Decadron Hospice was consulted, awaiting for possible discharge home [facility] today January 15, 2018 Hypothyroidism Continue levothyroxine 100 mcg daily. (2) Sepsis Qualifiers: Sepsis type: sepsis due to unspecified organism Qualified Code(s): A41.9 - Sepsis, unspecified organism
--- NOTE | 2018-01-15 11:48 | P.DS ---
Date of admission: 01/10/18 17:33 Primary care physician: Pawel John Brief History from admission: Mr. Eastman is a 77-year-old male. She has a current history of lung cancer with metastasis to the brain and will be undergoing treatment. Today he went in for treatment but was feeling too weak. He says over the past several days he has been having progressive weakness with shortness of breath and chills and sweats. He had previously been on a treatment of Levaquin and has taken all of these treatments as an outpatient. Despite these treatments towards the end of his treatment he has been having a progressive worsening of his previous respiratory symptoms. Evaluation today shows that the patient has had recurrence of signs of infection and worsening finding on imaging. This likely represents Levaquin failure. DS: Diagnosis - Discharge Diagnosis (1) Failure of outpatient treatment Status: Acute (2) Sepsis Status: Acute (3) Lung cancer metastatic to brain Status: Acute DS: Summary Hospital Course: Prior to discharge to hospice, patient was treated for: Sepsis Community-acquired pneumonia Outpatient treatment failure Pneumonia with lung cancer Immunocompromise in presence of cancer Treated with cefepime, vancomycin and azithromycin per infectious disease specialist Atrial fibrillation with RVR He was treated with amiodarone 100mg MWF, Metoprolol 25mg BID Congestive heart failure He was treated with Lasix 20mg BID. Lung cancer Brain metastasis Med and Radiation Onc ff, however patient no longer wants any aggressive treatment He was treated with Decadron Hypothyroidism He was treated with levothyroxine 100 mcg daily. - Time Spent with Patient Total time spent providing and/or coordinating discharge services: Greater than 30 minutes - Quality: VTE Deep Vein Thrombosis/Pulmonary Embolism Present on Admission: No Exam Vital signs: Vital Signs 01/14/18 12:00 01/14/18 16:00 01/14/18 20:00 Temperature 97.3 F L 97.1 F L 97.7 F Pulse Rate 90 74 97 H Respiratory Rate 18 20 20 Blood Pressure 102/81 109/66 112/84 Pulse Oximetry 92 L 93 L 95 01/15/18 00:00 01/15/18 04:00 01/15/18 08:00 Temperature 97.1 F L 97.9 F Pulse Rate 89 102 H 95 H Respiratory Rate 20 20 Blood Pressure 125/100 H 120/79 Pulse Oximetry 95 96 Intake & Output 0701/15/18 01/15/18 18:59 06:59 18:59 Intake Total 100 / 100 1205 / 1205 Output Total 500 / 500 Balance -400 / -400 1205 / 1205 Weight 103 kg Intake: IV 100 / 100 965 / 965 Azithromycin Inj 500 MG In NS 250 / 250 Inj 250 ML @ 250 mls/hr IV.SIG Q24H ZACH Rx#:[id number] Maxipime Inj 2,000 MG In NS Inj 100 / 100 200 / 200 100 ML @ 200 mls/hr IV.SIG Q8H ZACH Rx#:[id number] Vancomycin Inj 1,500 MG In NS 515 / 515 Inj 500 ML @ 250 mls/hr IV.SIG Q24H ZACH Rx#:[id number] Oral 240 / 240 Output: Urine 500 / 500 Other: # Incontinent Voids 1 2 Date of Last Bowel Movement 01/14/18 Narrative: GENERAL: Lethargic SKIN: Warm and dry. HEAD: Normocephalic. EYES: No scleral icterus. No injection or drainage. NECK: Supple, trachea midline. No JVD or lymphadenopathy. CARDIOVASCULAR: Regular rate and rhythm without murmurs, gallops, or rubs. RESPIRATORY: Breath sounds equal bilaterally. No accessory muscle use. GASTROINTESTINAL: Abdomen soft, non-tender, nondistended. MUSCULOSKELETAL: No cyanosis, or edema. BACK: Nontender without obvious deformity. No CVA tenderness. Results Procedures completed during hospitalization: None - Impressions ITS Impressions Chest X-Ray 01/10/18 15:13 CONCLUSION: Slight increase in right lung consolidation since December 31. Differential diagnosis includes pneumonia and aspiration. Discharge Plan - Discharge Disposition Patient Disposition: 51 Hospice/Med Facility - Discharge Condition Condition: Stable - Discharge Order Discharge Orders: Discharge Order (Routine); Ordered 01/15/18 Ordered By: Morgan Carrington - Physicians Team Primary Care Provider: Pawel John Attending Provider: Morgan Carrington Other Providers: Angelica Potter MD ; Darrell Linn MD ; Telly Valencia MD ; Daljit Miranda MD ; [facility],Insurance
[2018-01-17] MEDS ORDERED: Pharmacy Ordered Lab Info OTHER ONE (05:45)
== END 2018-01-15 15:00 | disposition hospice, inpatient (51) ==
LOC: NEPC 14:51 → NEDA 17:33 → HCIS 20:55 → N04 01-12 16:57
PROVIDERS: ADMIT Hospitalist; ATTEND Hospitalist
DX: C79.71 Secondary malignant neoplasm of right adrenal gland; H91.10 Presbycusis, unspecified ear; D63.0 Anemia in neoplastic disease; A41.9 Sepsis, unspecified organism; J44.0 Chronic obstructive pulmonary disease with (acute) lower respiratory infection; Z51.5 Encounter for palliative care; I25.10 Atherosclerotic heart disease of native coronary artery without angina pectoris; I48.2 Chronic atrial fibrillation; E03.9 Hypothyroidism, unspecified; Z87.891 Personal history of nicotine dependence; Z66 Do not resuscitate; Z85.038 Personal history of other malignant neoplasm of large intestine; E78.5 Hyperlipidemia, unspecified; C34.90 Malignant neoplasm of unspecified part of unspecified bronchus or lung; C78.7 Secondary malignant neoplasm of liver and intrahepatic bile duct; C79.72 Secondary malignant neoplasm of left adrenal gland; K21.9 Gastro-esophageal reflux disease without esophagitis; S30.810A Abrasion of lower back and pelvis, initial encounter; Z79.01 Long term (current) use of anticoagulants; C79.31 Secondary malignant neoplasm of brain; M19.90 Unspecified osteoarthritis, unspecified site; F41.9 Anxiety disorder, unspecified; I11.0 Hypertensive heart disease with heart failure; J18.9 Pneumonia, unspecified organism; I50.9 Heart failure, unspecified